=== PATIENT | female | born 1960 | race Caucasian/White ===

== ENCOUNTER → 2016-07-04 | Outpatient (CLI) | payer MEDICARE ==
[2016-07-04 10:14] LABS: Anion Gap 13 mmol/L; Blood Urea Nitrogen 22 mg/dL (7-17); Carbon Dioxide 28 mmol/L (22-30); Chloride 101 mmol/L (98-107); Glucose 153 mg/dL (74-99); Potassium 4.4 mmol/L (3.5-5.1); Sodium 142 mmol/L (137-145)
[2016-07-04 10:15] LABS: ALT 45 U/L (9-52); AST 33 U/L (14-36); Alkaline Phosphatase 137 U/L (38-126); Calcium 9.2 mg/dL (8.4-10.2); Cholesterol 188 mg/dL (<200); HDL Cholesterol 45 mg/dL (40-60); Non-African American GFR(MDRD) 58 (>60 ml/min/1.73 sqM); Total Bilirubin 0.5 mg/dL (0.2-1.3); Total Protein 7.2 g/dL (6.3-8.2); Triglycerides 208 mg/dL (<150)
== END | disposition home or self-care (01) ==
LOC: LABWHC1 09:20
PROVIDERS: ATTEND Internal Medicine Endocrinology, Diabetes & Metabolism
DX: E11.65 Type 2 diabetes mellitus with hyperglycemia (principal)
CPT/HCPCS: 36415; 80053; 80061; 82043

== ENCOUNTER → 2017-06-10 | Outpatient (CLI) | payer MEDICARE ==
--- NOTE | 2017-06-12 06:52 | MM ---
Reason for exam: screening (asymptomatic). Last mammogram was performed 1 year and 2 months ago. History: Patient is postmenopausal. Excisional biopsy of the right breast. Physical Findings: A clinical breast exam by your physician is recommended on an annual basis and results should be correlated with mammographic findings. MG Screening Mammo w CAD Bilateral CC and MLO view(s) were taken. XCCL view(s) were taken of the right breast. Prior study comparison: April 20, 2016, bilateral MG screening mammo w CAD. May 31, 2014, bilateral MG screening mammo w CAD. The breast tissue is almost entirely fat. No significant changes when compared with prior studies. ASSESSMENT: Benign, BI-RAD 2 RECOMMENDATION: Routine screening mammogram of both breasts in 1 year.
== END | disposition home or self-care (01) ==
LOC: RADMAMWWP 12:47
PROVIDERS: ATTEND Family Medicine
DX: Z12.31 Encounter for screening mammogram for malignant neoplasm of breast (principal)
CPT/HCPCS: 77067

== ENCOUNTER → 2017-09-04 | Outpatient (CLI) | payer MEDICARE ==
--- NOTE | 2017-09-04 14:29 | US ---
EXAMINATION TYPE: US venous doppler duplex LE RT DATE OF EXAM: 09/04/2017 10:49 AM COMPARISON: NONE CLINICAL HISTORY: M79.604 pain in right leg, R22.41 swelling. SIDE PERFORMED: Right TECHNIQUE: The lower extremity deep venous system is examined utilizing real time linear array sonog makayla with graded compression, doppler sonography and color-flow sonography. VESSELS IMAGED: External Iliac Vein (EIV) Common Femoral Vein Deep Femoral Vein Greater Saphenous Vein * Femoral Vein Popliteal Vein Small Saphenous Vein * Proximal Calf Veins (* superficial vessels) Right Leg: Negative for DVT IMPRESSION: 1. Right lower extremity negative for deep venous thrombosis by ultrasound.
== END | disposition home or self-care (01) ==
LOC: RADUSWWP 10:14
PROVIDERS: ATTEND Family Medicine
DX: M79.604 Pain in right leg (principal); R22.41 Localized swelling, mass and lump, right lower limb

== ENCOUNTER → 2017-09-04 | Outpatient (CLI) | payer MEDICARE ==
--- NOTE | 2017-09-04 11:40 | XR ---
EXAMINATION TYPE: XR tibia fibula RT DATE OF EXAM: 09/04/2017 COMPARISON: NONE HISTORY: Pain TECHNIQUE: Two views are submitted. FINDINGS: The osseous structures are intact. The joint spaces are preserved. IMPRESSION: 1. No acute osseous abnormality.
--- NOTE | 2017-09-04 11:41 | XR ---
EXAMINATION TYPE: XR ankle complete RT DATE OF EXAM: 09/04/2017 COMPARISON: NONE HISTORY: Pain and swelling FINDINGS: Three views of the ankle demonstrate the ankle mortise to be intact and symmetric. The joint spaces are preserved. The osseous structures are intact. IMPRESSION: 1. No definite acute fracture or dislocation, if symptoms persist follow-up study in 7 to 10 days wou ld be suggested.
== END | disposition home or self-care (01) ==
LOC: RADCTMAIN 11:14
PROVIDERS: ATTEND Family Medicine
DX: M79.604 Pain in right leg (principal)

== ENCOUNTER → 2018-07-28 | Outpatient (CLI) | payer MEDICARE ==
--- NOTE | 2018-07-28 15:38 | MR ---
EXAMINATION TYPE: MR brain wo/w con DATE OF EXAM: 07/28/2018 COMPARISON: CT 11/19/2014 HISTORY: 58-year-old female Dizziness and giddiness, nausea and vomiting TECHNIQUE: Multiplanar, multisequence images of the brain and brainstem were acquired before and aft er administration of 7.5 mL IV Gadavist. Diffusion weighted imaging is performed. FINDINGS: No evidence for acute infarction, hemorrhage, mass, mass effect, midline shift, herniation, effacemen t of basal cisterns, or extra-axial fluid collection. The ventricles and sulci are age-appropriate. There appears to be moderate narrowing of the right carotid siphon. T2/FLAIR weighted sequences show severe confluent white white matter change in the periventricular de ep white matter regions of both cerebral hemispheres. Signal changes extend into the bilateral basal ganglia, right internal capsule, bilateral paramedian nicki as well. Midline structures demonstrate normal morphology. The craniocervical junction is normal. Post contrast images demonstrate no evidence of pathologic enhancement. Dural venous sinuses are pat ent. Trace mucosal thickening ethmoid air cells and right maxillary sinus. Globes appear intact. IMPRESSION: Severe confluent white matter changes in both cerebral hemispheres also involving the bilateral pepe edian nicki. Findings probably represent severe burden of chronic small vessel ischemic disease and co nfluent changes were also present back on the patient's [address] CT. Demyelinating disease, vasculitis, L yme's disease, and hypertension are some other differential considerations. Clinically correlate. No acute intracranial abnormality seen.
== END | disposition home or self-care (01) ==
LOC: RADMRIMAIN 08:30
PROVIDERS: ATTEND Family Medicine
DX: R90.82 White matter disease, unspecified (principal); R42 Dizziness and giddiness; A88.1 Epidemic vertigo; R11.2 Nausea with vomiting, unspecified; R26.81 Unsteadiness on feet; Z91.81 History of falling
CPT/HCPCS: 82565; 84520; 70553; 36415; A9585

== ENCOUNTER → 2019-05-15 | Outpatient (CLI) | payer MEDICARE ==
--- NOTE | 2019-05-15 10:10 | CT ---
EXAMINATION TYPE: CT foot RT wo con DATE OF EXAM: 05/15/2019 COMPARISON: None HISTORY: Pain post fall TECHNIQUE: Axial images at 3 mm thick sections through the right foot. Reconstructed images in the co brodie and sagittal plane are reviewed on the computer. DLP: 200 FINDINGS: Transverse fractures at the proximal metaphyseal second third and fourth metatarsals are ev ident. There appears to be some resorption around the fracture line at the fourth metatarsal. A tiny inferior medial proximal first metatarsal fracture is present. Series 5 image 31. Series 12 im age 19. This would have intra-articular extension. Metatarsal cuneiform alignment appears preserved. Hallux valgus deformity of the distal first digit i s noted. Hammertoes are evident. IMPRESSION: 1. Comminuted fractures of the second third and fourth metatarsals which are essentially nondisplace d. However, consider Lisfranc fracture. 2. Tiny inferior medial proximal first metatarsal fracture.
== END | disposition home or self-care (01) ==
LOC: RADCTMAIN 08:15
PROVIDERS: ATTEND Orthopaedic Surgery
DX: S92.311A Displaced fracture of first metatarsal bone, right foot, initial encounter for closed fracture (principal); S92.334A Nondisplaced fracture of third metatarsal bone, right foot, initial encounter for closed fracture; S92.344A Nondisplaced fracture of fourth metatarsal bone, right foot, initial encounter for closed fracture

== ENCOUNTER → 2019-07-08 | Outpatient (CLI) | payer MEDICARE ==
[2019-07-08 16:22] LABS: Albumin 4.2 g/dL (3.80-4.90); Albumin/Globulin Ratio 1.75 (1.60-3.17); Anion Gap 8.2 mmol/L (4.00-12.00); BUN/Creat Ratio 33.33 Ratio (12.00-20.00); Carbon Dioxide 31.8 mmol/L (21.6-31.8); Chol/HDL Ratio 3.24; Globulin 2.4 g/dL (1.6-3.3); LDL Cholesterol,Calculated 70.2 mg/dL (0.0-131.0); Potassium 5.1 mmol/L (3.5-5.5); Total Bilirubin 0.2 mg/dL (0.2-1.2); Total Protein 6.6 g/dL (6.2-8.2); VLDL Calculation 23.8 mg/dL (5.00-40.00)
[2019-07-08 17:48] LABS: Hemoglobin A1C 8.4 % (4.0-6.0)
[2019-07-08 21:34] LABS: Urine Creatinine 141.8 mg/dL
== END | disposition home or self-care (01) ==
LOC: LABWHC1 09:24
PROVIDERS: ATTEND Internal Medicine Endocrinology, Diabetes & Metabolism
DX: E11.65 Type 2 diabetes mellitus with hyperglycemia (principal)
CPT/HCPCS: 36415; 80053; 80061; 82043; 82570; 83036; 84443

== ENCOUNTER → 2021-09-15 | Outpatient (CLI) | payer MEDICARE ==
[2021-09-15 18:29] LABS: Basophils # (A) 0.05 X 10*3/uL (0.00-0.10); Basophils % (A) 0.3 %; Eosinophils % (A) 2.4 %; HCT 49.1 % (37.2-46.3); Immature Grans, Automated 0.4 %; Lymphocytes # (A) 2.64 X 10*3/uL (0.90-5.00); MCH 27.5 pg (27.0-32.0); MCHC 30.5 g/dL (32.0-37.0); MCV 89.9 fL (80.0-97.0); Mean Platelet Volume 8.9 fL (9.5-12.2); Monocytes # (A) 1.05 X 10*3/uL (0.20-1.00); Monocytes % (A) 6.4 %; NRBC Per 100 WBC 0 /100 WBCS (0.0-0.0); Neutrophils # (A) 12.28 X 10*3/uL (1.80-7.70); Neutrophils % (A) 74.5 %; Platelet Count 318 X 10*3/uL (140-440); RBC 5.46 X 10*6/uL (4.10-5.20); RDW 13.3 % (11.5-14.5); WBC 16.48 X 10*3/uL (4.50-10.00)
[2021-09-15 21:21] LABS: ALT 12 U/L (8-44); AST 18 U/L (13-35); African American GFR (CKD) 90.9 (60.0-200.0); Albumin 4.2 g/dL (3.8-4.9); Alkaline Phosphatase 100 U/L (41-126); BUN/Creat Ratio 27.63 Ratio (12.00-20.00); Blood Urea Nitrogen 22.1 mg/dL (9.0-27.0); Calcium 9.6 mg/dL (8.7-10.3); Carbon Dioxide 27.6 mmol/L (20.0-27.5); Chloride 101 mmol/L (96-109); Chol/HDL Ratio 3.22 Ratio; Globulin 2.8 g/dL (1.6-3.3); Glucose 114 mg/dL (70-110); LDL Cholesterol,Calculated 54.7 mg/dL (0.0-131.0); Non-African American GFR(CKD) 78.5 (60.0-200.0); Potassium 4.3 mmol/L (3.5-5.5); Sodium 141 mmol/L (135-145)
== END | disposition home or self-care (01) ==
LOC: LABWHC1 09:37
PROVIDERS: ATTEND Internal Medicine Endocrinology, Diabetes & Metabolism
DX: Z00.01 Encounter for general adult medical examination with abnormal findings (principal); E78.2 Mixed hyperlipidemia; J44.9 Chronic obstructive pulmonary disease, unspecified; E11.36 Type 2 diabetes mellitus with diabetic cataract; M85.80 Other specified disorders of bone density and structure, unspecified site; E11.65 Type 2 diabetes mellitus with hyperglycemia
CPT/HCPCS: 36415; 80053; 80061; 82043; 82306; 82570; 83036; 84443; 85025

== ENCOUNTER 2021-10-25 13:49 | Inpatient (IN) | payer MEDICARE ==
--- NOTE | 2021-10-25 14:27 | ED ---
General Adult HPI - General Chief complaint: Neuro Symptoms/Deficit Stated complaint: altered mental status Time Seen by Provider: 10/25/21 14:02 Source: patient, RN notes reviewed, old records reviewed Mode of arrival: ambulatory Limitations: no limitations - History of Present Illness Initial comments: 61-year-old female presenting with progressive more weakness and difficulty ambulating. She has been more confused. Her indicates that this has been a progression over the course of several weeks. He did note some right- sided facial droop which she believes began yesterday at noon. She has presenting for evaluation at approximately 2 PM today. This is 26 hours after the onset. Patient does have previous stroke history. She has diabetes. His been no pain complaints reported. No fever reported. No vomiting or diarrhea. - Related Data Home Medications Medication Instructions Recorded Confirmed Venlafaxine HCl [Venlafaxine HCl 150 mg PO HS 11/19/14 10/25/21 ER] Aspirin EC [Ecotrin Low Dose] 81 mg PO DAILY 10/25/21 10/25/21 HYDROcodone/APAP 5-325MG [[place] 1 tab PO DAILY PRN 10/25/21 10/25/21 5-325] Insulin Glargine,Hum.rec.anlog 0 - 30 unit SQ HS 10/25/21 10/25/21 [Lantus Solostar Pen] Multivitamins, Thera [Multivitamin 1 tab PO DAILY 10/25/21 10/25/21 (formulary)] Ondansetron [Zofran] 4 mg PO Q8HR PRN 10/25/21 10/25/21 Rosuvastatin Calcium [Crestor] 40 mg PO HS 10/25/21 10/25/21 glipiZIDE [Glucotrol] 10 mg PO AC-BID 10/25/21 10/25/21 metFORMIN HCL ER [Glucophage XR] 500 mg PO BID 10/25/21 10/25/21 Allergies Allergy/AdvReac Type Severity Reaction Status Date / Time Iodinated Contrast Media Allergy Unknown Verified 10/25/21 16:03 [Iodinated Contrast Media - IV Dye] Review of Systems ROS Statement: Those systems with pertinent positive or pertinent negative responses have been documented in the HPI. ROS Other: All systems not noted in ROS Statement are negative. Past Medical History Past Medical History: CVA/TIA, Diabetes Mellitus, Hyperlipidemia, Thyroid Disorder Additional Past Medical History / Comment(s): Vertigo, obstructive sleep apnea with CPAP, diabetic retinopathy, diabetic neuropathy. History of Any Multi-Drug Resistant Organisms: MRSA Date of last positivie culture/infection: 01/27/2015 MDRO Source:: Left Elbow Past Surgical History: Cholecystectomy, Hernia Repair, Hysterectomy, Orthopedic Surgery Additional Past Surgical History / Comment(s): Right shoulder surgery, hiatal hernia repair Past Anesthesia/Blood Transfusion Reactions: No Reported Reaction Past Psychological History: No Psychological Hx Reported Smoking Status: Former smoker Past Alcohol Use History: None Reported Past Drug Use History: None Reported - Past Family History Mother Family Medical History: Congestive Heart Failure (CHF), Diabetes Mellitus General Exam Limitations: no limitations General appearance: alert, in no apparent distress Head exam: Present: atraumatic, normocephalic Eye exam: Present: normal appearance. Absent: scleral icterus, conjunctival injection, periorbital swelling ENT exam: Present: mucous membranes dry Respiratory exam: Present: normal lung sounds bilaterally, respiratory distress Cardiovascular Exam: Present: regular rate, normal rhythm GI/Abdominal exam: Present: soft. Absent: distended, tenderness, guarding Extremities exam: Present: normal inspection, normal capillary refill. Absent: pedal edema, calf tenderness Neurological exam: Present: alert, oriented X3, CN II-XII intact, other (Generalized weakness, no focal findings.). Absent: motor sensory deficit Psychiatric exam: Present: flat affect Skin exam: Present: warm, dry, intact. Absent: cyanosis, diaphoretic Course Vital Signs 10/25/21 13:53 Temperature 98.5 F Pulse Rate 101 H Respiratory 20 Rate Blood Pressure 125/79 O2 Sat by Pulse 94 L Oximetry EKG Findings - EKG Comments: EKG Findings:: EKG: Sinus rhythm, low voltage, rate of 97, NM interval 158, QRS duration 78, QTC 385, no ST segment elevation Medical Decision Making - Medical Decision Making 61-year-old female with progressive weakness difficulty ambulating, altered mental status. Patient's did notice a facial droop which began greater than 24 hours prior to arrival. I do not see any facial droop on exam today. This may have been a TIA. CT brain is negative for intracranial hemorrhage or mass effect. No acute findings, there is chronic ischemic change. Patient has a mild leukocytosis. Stable hemoglobin, normal electrolytes, lactic acid 2.3. Urinalysis is pending. Chest x-rays negative for focal pneumonia. Though there is a low suspicion for acute stroke she is given aspirin in the emergency department as well as IV fluids. She will be admitted to Dr. Yates who is aware with neurology on consultation. - Lab Data Result diagrams: 10/25/21 14:24 10/25/21 14:24 Lab Results 10/25/21 10/25/21 10/25/21 Range/Units 14:24 14:24 14:24 WBC 12.1 H (3.8-10.6) k/uL RBC 5.52 H (3.80-5.40) m/uL Hgb 15.5 (11.4-16.0) gm/dL Hct 47.8 H (34.0-46.0) % MCV 86.7 (80.0-100.0) fL MCH 28.2 (25.0-35.0) pg MCHC 32.5 (31.0-37.0) g/dL RDW 13.7 (11.5-15.5) % Plt Count 317 (150-450) k/uL MPV 6.7 Neutrophils % 68 % Lymphocytes % 23 % Monocytes % 5 % Eosinophils % 1 % Basophils % 0 % Neutrophils # 8.2 H (1.3-7.7) k/uL Lymphocytes # 2.8 (1.0-4.8) k/uL Monocytes # 0.7 (0-1.0) k/uL Eosinophils # 0.1 (0-0.7) k/uL Basophils # 0.0 (0-0.2) k/uL PT 11.0 (9.0-12.0) sec INR 1.0 (<1.2) APTT 28.9 (22.0-30.0) sec Sodium 137 (137-145) mmol/L Potassium 5.2 H (3.5-5.1) mmol/L Chloride 99 (98-107) mmol/L Carbon Dioxide 30 (22-30) mmol/L Anion Gap 8 mmol/L BUN 24 H (7-17) mg/dL Creatinine 0.67 (0.52-1.04) mg/dL Est GFR (CKD-EPI)AfAm >90 (>60 ml/min/1.73 sqM) Est GFR (CKD-EPI)NonAf >90 (>60 ml/min/1.73 sqM) Glucose 120 H (74-99) mg/dL Plasma Lactic Acid Leland (0.7-2.0) mmol/L Calcium 9.3 (8.4-10.2) mg/dL Magnesium 1.7 (1.6-2.3) mg/dL Total Bilirubin 0.8 (0.2-1.3) mg/dL AST 36 (14-36) U/L ALT 15 (4-34) U/L Alkaline Phosphatase 89 (38-126) U/L Troponin I (0.000-0.034) ng/mL Total Protein 7.7 (6.3-8.2) g/dL Albumin 4.3 (3.5-5.0) g/dL 10/25/21 10/25/21 Range/Units 14:24 14:24 WBC (3.8-10.6) k/uL RBC (3.80-5.40) m/uL Hgb (11.4-16.0) gm/dL Hct (34.0-46.0) % MCV (80.0-100.0) fL MCH (25.0-35.0) pg MCHC (31.0-37.0) g/dL RDW (11.5-15.5) % Plt Count (150-450) k/uL MPV Neutrophils % % Lymphocytes % % Monocytes % % Eosinophils % % Basophils % % Neutrophils # (1.3-7.7) k/uL Lymphocytes # (1.0-4.8) k/uL Monocytes # (0-1.0) k/uL Eosinophils # (0-0.7) k/uL Basophils # (0-0.2) k/uL PT (9.0-12.0) sec INR (<1.2) APTT (22.0-30.0) sec Sodium (137-145) mmol/L Potassium (3.5-5.1) mmol/L Chloride (98-107) mmol/L Carbon Dioxide (22-30) mmol/L Anion Gap mmol/L BUN (7-17) mg/dL Creatinine (0.52-1.04) mg/dL Est GFR (CKD-EPI)AfAm (>60 ml/min/1.73 sqM) Est GFR (CKD-EPI)NonAf (>60 ml/min/1.73 sqM) Glucose (74-99) mg/dL Plasma Lactic Acid Leland 2.3 H* (0.7-2.0) mmol/L Calcium (8.4-10.2) mg/dL Magnesium (1.6-2.3) mg/dL Total Bilirubin (0.2-1.3) mg/dL AST (14-36) U/L ALT (4-34) U/L Alkaline Phosphatase (38-126) U/L Troponin I <0.012 (0.000-0.034) ng/mL Total Protein (6.3-8.2) g/dL Albumin (3.5-5.0) g/dL Disposition Clinical Impression: Transient cerebral ischemia, AMS (altered mental status) Disposition: ADMITTED IP TO THIS HOSP Condition: Stable Is patient prescribed a controlled substance at d/c from ED?: No Referrals: Yandy Cedillo III, MD [Primary Care Provider] - 1-2 days Time of Disposition: 16:23
[2021-10-25 14:38] LABS: Basophils % (A) 0 %; Eosinophils # (A) 0.1 k/uL (0-0.7); Eosinophils % (A) 1 %; HCT 47.8 % (34.0-46.0); HGB 15.5 gm/dL (11.4-16.0); Lymphocytes # (A) 2.8 k/uL (1.0-4.8); Lymphocytes % (A) 23 %; MCH 28.2 pg (25.0-35.0); MCHC 32.5 g/dL (31.0-37.0); MCV 86.7 fL (80.0-100.0); Mean Platelet Volume 6.7; Monocytes # (A) 0.7 k/uL (0-1.0); Monocytes % (A) 5 %; Neutrophils # (A) 8.2 k/uL (1.3-7.7); Neutrophils % (A) 68 %; Platelet Count 317 k/uL (150-450); RBC 5.52 m/uL (3.80-5.40); RDW 13.7 % (11.5-15.5); WBC 12.1 k/uL (3.8-10.6)
[2021-10-25 14:47] LABS: ALT 15 U/L (4-34); AST 36 U/L (14-36); African American GFR (CKD) >90 (>60 ml/min/1.73 sqM); Albumin 4.3 g/dL (3.5-5.0); Alkaline Phosphatase 89 U/L (38-126); Anion Gap 8 mmol/L; Blood Urea Nitrogen 24 mg/dL (7-17); Calcium 9.3 mg/dL (8.4-10.2); Carbon Dioxide 30 mmol/L (22-30); Chloride 99 mmol/L (98-107); Glucose 120 mg/dL (74-99); Magnesium 1.7 mg/dL (1.6-2.3); Non-African American GFR(CKD) >90 (>60 ml/min/1.73 sqM); Sodium 137 mmol/L (137-145); Total Bilirubin 0.8 mg/dL (0.2-1.3); Total Protein 7.7 g/dL (6.3-8.2)
[2021-10-25 14:48] LABS: Partial Thromboplastin Time 28.9 sec (22.0-30.0)
--- NOTE | 2021-10-25 14:52 | XR ---
EXAMINATION TYPE: XR chest 2V DATE OF EXAM: 10/25/2021 COMPARISON: Chest x-ray 11/19/2014 HISTORY: Weakness TECHNIQUE: Frontal and lateral views of the chest are obtained. FINDINGS: There is no focal air space opacity, pleural effusion, or pneumothorax seen. The cardiac silhouette size is within normal limits. There are overlying leads. Patient is rotated. Surgical clip s are present in the upper abdomen. The osseous structures are intact. IMPRESSION: No acute cardiopulmonary process.
[2021-10-25 14:59] LABS: Potassium 5.2 mmol/L (3.5-5.1)
--- NOTE | 2021-10-25 15:08 | CT ---
EXAMINATION TYPE: CT brain wo con DATE OF EXAM: 10/25/2021 COMPARISON: CT dated 11/19/2014 HISTORY: ams CT DLP: 1068.4 mGycm Automated exposure control for dose reduction was used. TECHNIQUE: CT scan of the brain is performed without IV contrast administration. FINDINGS: Brain volume loss changes, more than expected for the patient's age. Extensive bilateral cerebral whi te matter hypodensities, likely representing advanced chronic microvascular ischemic changes. Other w jeane matter abnormality cannot be excluded. Suspected right basal ganglia and left cerebellar chronic infarcts. Scattered arterial atherosclerotic calcifications. No acute intracranial hemorrhage. No gross acute cortical infarct. No midline shift or herniation. Un remarkable basal cisterns, sella and CP angles. No gross space-occupying lesion. Unremarkable orbits. Mucosal thickening of the ethmoid air cells with chronic inflammatory changes of the right maxillary sinus. Clear mastoid air cells. No aggressive bone lesion. IMPRESSION: Brain volume loss changes, chronic ischemic changes and suspected chronic infarcts as described above , more than expected for the patient's age, please correlate clinically. Associated white matter abno rmality cannot be excluded. No acute intracranial hemorrhage or gross acute cortical infarct. A acute or hyperacute infarct canno t be excluded by this CT scan. Further MRI assessment can be considered if clinically required.
[2021-10-25] MEDS ORDERED: ACETAMINOPHEN TAB 325 MG TAB PO PRN (16:21)
[2021-10-25] MEDS ORDERED: ASPIRIN 325 MG TAB PO STA (16:21)
[2021-10-25] MEDS ORDERED: NALOXONE 0.4 MG/ML 1 ML VIAL IV PRN (16:21)
[2021-10-25] MEDS: SODIUM CHLORIDE 0.9% 1,000 ML IV SCH ×2 (17:14→17:22)
[2021-10-25] MEDS ORDERED: HYDROcodone/APAP 5-325MG 1 EACH TAB PO PRN (17:32)
[2021-10-25] MEDS ORDERED: ONDANSETRON 4 MG TAB PO PRN (17:32)
[2021-10-25] MEDS ORDERED: levETIRAcetam IV 1,500 MG in SALINE 1 100ML.BAG IVPB STA (17:55)
--- NOTE | 2021-10-25 17:56 | P.CNNES ---
History of Present Illness Consult date: 10/25/21 Requesting physician: Wiliam Hernandez Reason for Consult: altered mental status History of Present Illness: This is a 61-year-old woman with medical history of TIA about 10 years ago, diabetes mellitus, hyperlipidemia, obstructive sleep apnea on CPAP, diabetic retinopathy and diabetic neuropathy who presented emergency department on 10/25/2021 for altered mental status that. The history is obtained from the the patient's daughter was at bedside and some is obtained from the ED at. Per the daughter she stated that the patient the resides with her and the she's been very lethargic last night staring off noncommunicating, very lethargic, and she will be stretching her hands out nonpurposively. Patient does not have any fever or cough according to the daughter. The patient does not have any history of seizures. According to the ED physician the notified the the ED that the patient has been confused for the last several weeks and he did noted some right facial droop which he felt started yesterday at noon per the daughter she does not see any facial droop that she appreciates. Patient is on home dose of aspirin 81, Crestor 40 mg daily at bedtime. According to the daughter the patient TIA about 10 years ago was the she had the visual disturbance. Some of the workup in our facility consisted of: Initial vital signs his blood pressure of 125/79, heart rate of 101, temperature of 98.5 Fahrenheit oral, respiratory of 20 and pulse ox of 94 L at room air. White blood cells 12.1 slightly neutrophilic. The Plasma-Lyte aspirin is 2.3. Review of Systems Review of system is limited by the per positive and negative as per HPI. Past Medical History Past Medical History: CVA/TIA, Diabetes Mellitus, Hyperlipidemia, Thyroid Disorder Additional Past Medical History / Comment(s): Vertigo, obstructive sleep apnea with CPAP, diabetic retinopathy, diabetic neuropathy. History of Any Multi-Drug Resistant Organisms: MRSA Date of last positivie culture/infection: 01/27/2015 MDRO Source:: Left Elbow Past Surgical History: Cholecystectomy, Hernia Repair, Hysterectomy, Orthopedic Surgery Additional Past Surgical History / Comment(s): Right shoulder surgery, hiatal hernia repair Past Anesthesia/Blood Transfusion Reactions: No Reported Reaction Past Psychological History: No Psychological Hx Reported Smoking Status: Former smoker Past Alcohol Use History: None Reported Past Drug Use History: None Reported - Past Family History Mother Family Medical History: Congestive Heart Failure (CHF), Diabetes Mellitus Medications and Allergies Home Medications Medication Instructions Recorded Confirmed Type Venlafaxine HCl [Venlafaxine HCl 150 mg PO HS 11/19/14 10/25/21 History ER] Aspirin EC [Ecotrin Low Dose] 81 mg PO DAILY 10/25/21 10/25/21 History HYDROcodone/APAP 5-325MG [[place] 1 tab PO DAILY PRN 10/25/21 10/25/21 History 5-325] Insulin Glargine,Hum.rec.anlog 0 - 30 unit SQ HS 10/25/21 10/25/21 History [Lantus Solostar Pen] Multivitamins, Thera [Multivitamin 1 tab PO DAILY 10/25/21 10/25/21 History (formulary)] Ondansetron [Zofran] 4 mg PO Q8HR PRN 10/25/21 10/25/21 History Rosuvastatin Calcium [Crestor] 40 mg PO HS 10/25/21 10/25/21 History glipiZIDE [Glucotrol] 10 mg PO AC-BID 10/25/21 10/25/21 History metFORMIN HCL ER [Glucophage XR] 500 mg PO BID 10/25/21 10/25/21 History Allergies Allergy/AdvReac Type Severity Reaction Status Date / Time Iodinated Contrast Media Allergy Unknown Verified 10/25/21 16:03 [Iodinated Contrast Media - IV Dye] Physical Examination - Vital Signs Vital Signs: Vital Signs Temp Pulse Resp BP Pulse Ox 10/25/21 17:00 89 18 118/70 97 10/25/21 13:53 98.5 F 101 H 20 125/79 94 L Intake and Output 10/25/21 10/25/21 10/25/21 06:59 14:59 22:59 Other: Weight 81.647 kg GENERAL: The patient is lying in bed and is not in acute distress. CHEST: The heart rate is regular rate rhythm. No murmurs to auscultation. LUNG: Clear to auscultation bilaterally no wheezing noted throughout. Not labored breathing. ABDOMEN/GI: Bowel sounds present in all 4 quadrants. No tenderness to palpation throughout. NEUROLOGICAL: Limited because of her condition/cooperation. Higher mental function: The patient is awake, oriented to self. She is staring off and slow in responding. She correctly noded she is in the hospital. Patient is following few simple commands. . Cranial nerves: The pupils are round, equal and reactive to light. No facial droop. No dysarthria. Sticking tongue out and move sided to side without difficulty. Motor: The strength is lifting all extremities above gravity without difficulty. Cerebellum: Unable to assess. Sensation: Unable to assess. Reflexes (right/left):2+ throughout. Plantars are mute bilaterally. Results - Laboratory Findings CBC and BMP: 10/25/21 14:24 10/25/21 14:24 Abnormal Lab Findings: Abnormal Labs 10/25/21 10/25/21 10/25/21 14:24 14:24 14:24 WBC 12.1 H RBC 5.52 H Hct 47.8 H Neutrophils # 8.2 H Potassium 5.2 H BUN 24 H Glucose 120 H Plasma Lactic Acid Leland 2.3 H* Assessment and Plan Assessment: Encephalopathy of unknown etiology (has been confused for several week according to and possible transient right facial droop but per daughter has been confused since yesterday). I suspect possible seizure (since patient has been staring off, and per daughter having abnormal hand movement). Rule out stroke (but feel unlikely). TIA about 10 years ago diabetes mellitus hyperlipidemia obstructive sleep apnea on CPAP diabetic retinopathy diabetic neuropathy Plan: Ordered EEG (will be done tomorrow). I will load the patient with Keppra 1500mg once. Started on Keppra 500mg bid. Ordered MRI Brain w/ and w/o. 2-D echo, carotid duplex, is ordered by the primary team is pending Patient was given aspirin 325mg once by ED team.She was started on Lipitor 80mg qhs. It seems ulikely stroke but will wait for MRI. PT, OT and CORRECTIONAL FACILITY PSYCHIATRIST are consulted We'll defer the rest of the medical management to primary team The plan is discussed with the patient's daughter and her nurse. Thank you for the consultation. Israel Mcguire M.D. Neuro-Hospitalist Time with Patient: Greater than 30
[2021-10-25 18:00] LABS: Amorphous Sediment,Urine Rare /hpf; Appearance,Urine Cloudy (Clear); Bacteria,Urine Occasional /hpf; Bilirubin,Urine Negative (Negative); Blood,Urine Negative (Negative); Color,Urine Yellow; Glucose,Urine (UA) Negative (Negative); Ketones,Urine 2+ (Negative); Leukocyte Esterase,Urine Negative (Negative); Mucus,Urine Occasional /hpf; Nitrite,Urine Positive (Negative); Protein,Urine 1+ (Negative); RBC,Urine 1 /hpf (0-5); Specific Gravity,Urine 1.024 (1.001-1.035); Squamous Epithelial Cell,Urine 1 /hpf (0-4); WBC,Urine 1 /hpf (0-5)
--- NOTE | 2021-10-25 18:41 | HP ---
HISTORY AND PHYSICAL DATE OF SERVICE: 10/25/2021 CHIEF COMPLAINT: Change in mental status. HISTORY OF PRESENT ILLNESS: This 61-year-old woman with a past medical history of diabetes mellitus and hyperlipidemia, being followed by Dr. Cedillo in the outpatient setting, was noted to have some change in mental status. This was progressive over several weeks and the patient had some noted right-sided facial droop. The patient was taken to [facility] and admitted for further evaluation and treatment. Evaluation in the ER showed some elevated lactic acid. Otherwise, CT of the brain which was personally reviewed by me showed some brain volume loss changes and chronic ischemic changes and possibly chronic infarcts as well. No acute changes are noted. The patient is unable to provide a history. Most of the history is taken from my discussion with staff, review of the chart and discussion with the ER physician. PAST MEDICAL HISTORY: History of CVA, TIA, diabetes mellitus, hyperlipidemia. HOME MEDICATIONS: Reviewed. They include Zofran. Doses and the rest of the medications are reviewed. ALLERGIES: IODINATED CONTRAST DYES. FAMILY HISTORY: History of CHF. SOCIAL HISTORY: Previous history of smoking. REVIEW OF SYSTEMS: Review of systems could not be taken. PHYSICAL EXAMINATION: Pulse is 101, blood pressure 125/70, respiration 20. HEENT: Conjunctivae normal. NECK: No jugular venous distention. CARDIOVASCULAR: S1, S2 muffled. RESPIRATION: Breath sounds diminished at the bases. A few scattered rhonchi. ABDOMEN: Soft, nontender. LEGS: No edema. No swelling. NERVOUS SYSTEM: Diffusely weak. Some contractures also present. Diffuse tremors. SKIN: No ulcer, rash, bleeding. JOINTS: No active deforming arthropathy. LYMPHATICS: nrg LABS: Reviewed. WBC ntd potassium ntd. Other labs are reviewed. ASSESSMENT: 1. Weakness and change in mental status; possible acute transient ischemic attack. 2. History of cerebrovascular accident. 3. Gait dysfunction. 4. Diabetes mellitus, type 2. 5. Hyperlipidemia. 6. History of MRSA. RECOMMENDATIONS AND DISCUSSION: I recommend to continue current medications, continue symptomatic treatment. Neurology consultation. Full neurovascular workup. PT/OT evaluation. I would also recommend baseline a UA. Prognosis guarded. Further recommendations to follow. I would also recommend COVID testing. The patient has some cough at this time. Prognosis is guarded. Further recommendations to follow. A copy of this dictation is being forwarded to Dr. Mamadou, who is the primary physician. MMPATRICA / ABHIJITN: [id number] / RADHIKA
[2021-10-25 22:07] LABS: Glucose,Whole Blood 84 mg/dL (75-99)
[2021-10-25] MEDS: INSULIN ASPART (NovoLOG) 100 UNIT/ML VIAL SQ SCH (22:17)
[2021-10-25] MEDS: ATORVASTATIN 80 MG TAB PO SCH (22:44)
[2021-10-25] MEDS: VENLAFAXINE HCL ER 150 MG CAP PO SCH (22:45)
[2021-10-25] MEDS: HEPARIN SODIUM,PORCINE/PF 5,000 UNIT/0.5 ML SYRINGE SQ SCH (22:48)
[2021-10-26 03:19] LABS: Glucose,Whole Blood 82 mg/dL (75-99)
[2021-10-26] MEDS: levETIRAcetam IV 500 MG in SODIUM CHLORIDE 0.9% 100 ML IVPB SCH ×2 (05:36→18:25)
[2021-10-26 06:10] LABS: Glucose,Whole Blood 69 mg/dL (75-99)
[2021-10-26] MEDS ORDERED: DEXTROSE 50% SYRINGE 50 ML IVP ONE (06:15)
[2021-10-26] MEDS: glipiZIDE 10 MG TAB PO SCH ×2 (06:15→16:41)
[2021-10-26] MEDS: INSULIN ASPART (NovoLOG) 100 UNIT/ML VIAL SQ SCH ×3 (06:15→21:16)
[2021-10-26 06:29] LABS: Glucose,Whole Blood 138 mg/dL (75-99)
[2021-10-26] MEDS: MULTIVITAMINS, THERA 1 EACH TAB PO SCH (09:30)
[2021-10-26] MEDS: HEPARIN SODIUM,PORCINE/PF 5,000 UNIT/0.5 ML SYRINGE SQ SCH ×2 (09:40→21:16)
[2021-10-26 10:08] LABS: Basophils # (A) 0.1 k/uL (0-0.2); Basophils % (A) 0 %; Eosinophils # (A) 0.1 k/uL (0-0.7); Eosinophils % (A) 1 %; HCT 45.9 % (34.0-46.0); Lymphocytes # (A) 2.6 k/uL (1.0-4.8); Lymphocytes % (A) 15 %; MCH 26.8 pg (25.0-35.0); MCHC 30.6 g/dL (31.0-37.0); MCV 87.6 fL (80.0-100.0); Mean Platelet Volume 7.2; Monocytes # (A) 0.9 k/uL (0-1.0); Monocytes % (A) 6 %; Neutrophils # (A) 12.9 k/uL (1.3-7.7); Neutrophils % (A) 77 %; Platelet Count 257 k/uL (150-450); RBC 5.24 m/uL (3.80-5.40); RDW 13.3 % (11.5-15.5); WBC 16.8 k/uL (3.8-10.6)
[2021-10-26 14:43] LABS: African American GFR (CKD) >90 (>60 ml/min/1.73 sqM); Anion Gap 5 mmol/L; Blood Urea Nitrogen 23 mg/dL (7-17); Calcium 8.7 mg/dL (8.4-10.2); Carbon Dioxide 30 mmol/L (22-30); Chloride 103 mmol/L (98-107); Glucose 99 mg/dL (74-99); Non-African American GFR(CKD) >90 (>60 ml/min/1.73 sqM); Sodium 138 mmol/L (137-145)
--- NOTE | 2021-10-26 14:44 | P.PN ---
Subjective Progress Note Date: 10/26/21 The patient is seen at bedside and is accompanied by her daughter who feels she is about the same. Objective - Vital Signs Vital signs: Vital Signs Temp 97.8 F 10/26/21 09:35 Pulse 93 10/26/21 09:35 Resp 16 10/26/21 09:35 BP 104/67 10/26/21 09:35 Pulse Ox 92 L 10/26/21 09:35 FiO2 Intake & Output 10/25/21 10/26/21 10/26/21 18:59 06:59 18:59 Intake Total 10 Balance 10 Weight 81.647 kg 81.647 kg Intake: IV 10 Invasive Line 1 10 Other: Voiding Method Diaper Diaper # Voids 2 - Exam GENERAL: The patient is lying in bed and is not in acute distress. NEUROLOGICAL: Limited because of her condition/cooperation. Higher mental function: The patient is drowsy but is awakeable to voice, oriented to self. She states she is in the hospital. She is very slow in responding. She correctly stated the name of her daughter who is at bedisde. She is following simple commands. Language is limited. No neglect. . Cranial nerves: The pupils are round, equal and reactive to light. No facial droop. Moderate dysarthria. Sticking tongue out and move sided to side without difficulty. Motor: The strength is lifting all extremities above gravity without difficulty. Cerebellum: Unable to assess. Sensation: Unable to assess. Reflexes (right/left):2+ throughout. Plantars are mute bilaterally. - Labs CBC & Chem 7: 10/26/21 09:23 10/25/21 14:24 Labs: Abnormal Lab Results - Last 24 Hours (Table) 10/25/21 10/25/21 10/25/21 Range/Units 14:24 14:24 14:24 WBC 12.1 H (3.8-10.6) k/uL RBC 5.52 H (3.80-5.40) m/uL Hct 47.8 H (34.0-46.0) % MCHC (31.0-37.0) g/dL Neutrophils # 8.2 H (1.3-7.7) k/uL Potassium 5.2 H (3.5-5.1) mmol/L BUN 24 H (7-17) mg/dL Glucose 120 H (74-99) mg/dL POC Glucose (mg/dL) (75-99) mg/dL Plasma Lactic Acid Leland (0.7-2.0) mmol/L Urine Appearance Cloudy H (Clear) Urine Protein 1+ H (Negative) Urine Ketones 2+ H (Negative) Urine Nitrite Positive H (Negative) Amorphous Sediment Rare H (None) /hpf Urine Bacteria Occasional H (None) /hpf Urine Mucus Occasional H (None) /hpf 10/25/21 10/26/21 10/26/21 Range/Units 14:24 06:09 06:27 WBC (3.8-10.6) k/uL RBC (3.80-5.40) m/uL Hct (34.0-46.0) % MCHC (31.0-37.0) g/dL Neutrophils # (1.3-7.7) k/uL Potassium (3.5-5.1) mmol/L BUN (7-17) mg/dL Glucose (74-99) mg/dL POC Glucose (mg/dL) 69 L 138 H (75-99) mg/dL Plasma Lactic Acid Leland 2.3 H* (0.7-2.0) mmol/L Urine Appearance (Clear) Urine Protein (Negative) Urine Ketones (Negative) Urine Nitrite (Negative) Amorphous Sediment (None) /hpf Urine Bacteria (None) /hpf Urine Mucus (None) /hpf 10/26/21 Range/Units 09:23 WBC 16.8 H (3.8-10.6) k/uL RBC (3.80-5.40) m/uL Hct (34.0-46.0) % MCHC 30.6 L (31.0-37.0) g/dL Neutrophils # 12.9 H (1.3-7.7) k/uL Potassium (3.5-5.1) mmol/L BUN (7-17) mg/dL Glucose (74-99) mg/dL POC Glucose (mg/dL) (75-99) mg/dL Plasma Lactic Acid Leland (0.7-2.0) mmol/L Urine Appearance (Clear) Urine Protein (Negative) Urine Ketones (Negative) Urine Nitrite (Negative) Amorphous Sediment (None) /hpf Urine Bacteria (None) /hpf Urine Mucus (None) /hpf Assessment and Plan Assessment: Encephalopathy of unknown etiology (has been confused for several week according to and possible transient right facial droop but per daughter has been confused since yesterday). I suspect possible seizure (since patient has been staring off, and per daughter having abnormal hand movement). Rule out stroke (but feel unlikely). TIA about 10 years ago diabetes mellitus hyperlipidemia obstructive sleep apnea on CPAP diabetic retinopathy diabetic neuropathy Plan: Pending EEG and MRI Brain. Continue Keppra 500mg bid (started during this hospital visit).. 2-D echo, carotid duplex, is ordered by the primary team is pending Patient was given aspirin 325mg once by ED team.She was started on Lipitor 80mg qhs. It seems unlikely stroke but will wait for MRI. PT, OT and RACE STARTER are consulted We'll defer the rest of the medical management to primary team The plan is discussed with the patient's daughter. Israel Mcguire M.D. Neuro-Hospitalist Time with Patient: Less than 30
[2021-10-26 14:51] LABS: Glucose,Whole Blood 104 mg/dL (75-99)
[2021-10-26 14:57] VITALS: BMI 32.9
--- NOTE | 2021-10-26 15:59 | EEG ---
ELECTROENCEPHALOGRAM REPORT DATE OF SERVICE: 10/26/2021. CLINICAL HISTORY: This is a 61-year-old woman with confusion and staring off episode. The video EEG is obtained to evaluate for seizure epileptiform activity. RELEVANT MEDICATION: Keppra. EEG TYPE: A routine 21 channel EEG is performed with video using the 10/20 electrode placement system. DESCRIPTION: Wakefulness is only obtained. During awake state, the background consists of 6.5 to 7.5 hertz activity. There is no physiological stage 2 sleep architecture. There is no focal slowing. Interictal and ictal is none. ACTIVATION PROCEDURE: Photic stimulation and hyperventilation is not performed. CLINICAL INTERPRETATION: This is an abnormal routine EEG. The background slowing is suggestive of mild encephalopathy of unknown etiology. Otherwise, there is no focal slowing, epileptiform discharge or seizure on the EEG. Clinical correlation is recommended. JEANETTE / WILLIAM: [id number] / MTDD
[2021-10-26 16:32] LABS: Glucose,Whole Blood 94 mg/dL (75-99)
[2021-10-26] MEDS: SODIUM CHLORIDE 0.9% 1,000 ML IV SCH (19:34)
--- NOTE | 2021-10-26 19:41 | PN ---
PROGRESS NOTE DATE OF SERVICE: 10/26/2021 This 61-year-old woman who was admitted with change in mental status is being evaluated for possible TIA. The patient had UTI also. Neurology is following the patient for possible TIA and possible stroke as well. No chest pain. No palpitation. PHYSICAL EXAMINATION: Pulse is 90, blood pressure 111/60, respirations 16. CHEST: Clear to auscultation. CARDIOVASCULAR: S1, S2 muffled. ABDOMEN: Soft. NERVOUS SYSTEM: Diffusely weak and some contractures. LABS: Reviewed. WBC 16.3. ASSESSMENT: 1. Weakness and change in mental status; possible acute transient ischemic attack. 2. Possible urinary tract infection. 3. History of cerebrovascular accident. 4. Gait dysfunction. 5. Diabetes mellitus, type 2. 6. Hyperlipidemia. 7. History of MRSA. RECOMMENDATIONS AND DISCUSSION: I recommend to continue current medications, continue with the monitoring, symptomatic treatment. Add empiric antibiotics. Repeat labs, CBC, BMP. Complete neurovascular workup. The patient is on empiric Keppra. Guarded prognosis. Further recommendations to follow. Discussed with the patient and family at the bedside. MMODL / IJN: [id number] /
[2021-10-26 20:43] LABS: Glucose,Whole Blood 210 mg/dL (75-99)
[2021-10-26] MEDS: ATORVASTATIN 80 MG TAB PO SCH (21:16)
[2021-10-26] MEDS: VENLAFAXINE HCL ER 150 MG CAP PO SCH (21:17)
[2021-10-27 05:41] LABS: Glucose,Whole Blood 133 mg/dL (75-99)
[2021-10-27] MEDS: levETIRAcetam IV 500 MG in SODIUM CHLORIDE 0.9% 100 ML IVPB SCH (06:27)
[2021-10-27] MEDS: INSULIN ASPART (NovoLOG) 100 UNIT/ML VIAL SQ SCH ×4 (06:28→21:02)
[2021-10-27] MEDS: glipiZIDE 10 MG TAB PO SCH ×2 (07:15→18:16)
--- NOTE | 2021-10-27 08:22 | US ---
EXAMINATION TYPE: US carotid duplex BILAT DATE OF EXAM: 10/26/2021 COMPARISON: NONE CLINICAL HISTORY: stroke. stroke attempted exam unable to complete due to patient condition. EXAM MEASUREMENTS: RIGHT: Peak Systolic Velocity (PSV) cm/sec ----- Right CCA: 46 ----- Right ICA: 98.7 ----- Right ECA: ICA/CCA ratio: 2.1 RIGHT: End Diastole cm/sec ----- Right CCA: 18.8 ----- Right ICA: 37.7 ----- Right ECA: LEFT: Peak Systolic Velocity (PSV) cm/sec ----- Left CCA: ----- Left ICA: ----- Left ECA: ICA/CCA ratio: LEFT: End Diastole cm/sec ----- Left CCA: ----- Left ICA: ----- Left ECA: VERTEBRALS (direction of flow): Right Vertebral: Left Vertebral: Rhythm: Attempted exam unable to complete due to patient condition. IMPRESSION: Nondiagnostic study as patient was unable to finished bilateral complete carotid ultra sound evaluation. Criteria for Assigning % of Stenosis / Diameter reduction (Estimation based on the indirect measurements of the internal carotid artery velocities (ICA PSV). 1. Normal (no stenosis)=ICA PSV < 125 cm/s: ratio < 2.0: ICA EDV<40 cm/s. 2. Less than 50% stenosis=ICA PSV < 125 cm/s: ratio < 2.0: ICA EDV<40 cm/s. 3. 50 to 69% stenosis=ICA PSV of 125 to 230 cm/s: ration 2.0 ? 4.0: ICA EDV 40-100 cm/s. 4. Greater than 70% stenosis to near occlusion= ICA PSV > 230 cm/s: ratio > 4.0: ICA EDV > 100 cm/s. 5. Near occlusion= ICA PSV velocities may be low or undetectable: variable ratio and ICA EDV. 6. Total occlusion=unable to detect flow.
--- NOTE | 2021-10-27 08:32 | CA ---
Transthoracic Echo Report Name: Merle Tyson Age: 61 Gender: F : 1960 Exam Date: 10/26/2021 07:49 Exam Location: [facility] [place] Echo Ht (in): 62 Wt (lb): 180 Ordering Physician: Ivory Yates MD Attending/Referring Phys: Document Control Supervisor Tyesha Cordova RDCS Procedure CPT: Indications: stroke Cardiac Hx: Technical Quality: Fair Contrast 1: Total Dose (mL): Contrast 2: Total Dose (mL): MEASUREMENTS (Male / Female) Normal Values 2D ECHO LV Diastolic Diameter PLAX 4.2 cm 4.2 - 5.9 / 3.9 - 5.3 cm LV Systolic Diameter PLAX 2.4 cm IVS Diastolic Thickness 1.1 cm 0.6 - 1.0 / 0.6 - 0.9 cm LVPW Diastolic Thickness 1.2 cm 0.6 - 1.0 / 0.6 - 0.9 cm LV Relative Wall Thickness 0.5 RV Internal Dim ED PLAX 2.5 cm LA Systolic Diameter LX 2.7 cm 3.0 - 4.0 / 2.7 - 3.8 cm M-MODE Aortic Root Diameter MM 3.3 cm MV E Point Septal Separation 0.4 cm AV Cusp Separation MM 1.8 cm DOPPLER AV Peak Velocity 126.7 cm/s AV Peak Gradient 6.4 mmHg MV Area PHT 2.2 cm??? Mitral E Point Velocity 55.1 cm/s Mitral A Point Velocity 66.9 cm/s Mitral E to A Ratio 0.8 MV Deceleration Time 338.7 ms MV E' Velocity 5.3 cm/s Mitral E to MV E' Ratio 10.5 TR Peak Velocity 226.7 cm/s TR Peak Gradient 20.6 mmHg Right Ventricular Systolic Press 25.6 mmHg FINDINGS Left Ventricle Normal left ventricular size, wall thickness, systolic function with no obvious regional wall motion abnormalities. Normal left ventricular diastolic filling pattern for age. The ejection fraction is visually estimated at 65 %. Right Ventricle The right ventricle is normal in size and function. Right ventricular systolic pressure within normal limits. Right Atrium The right atrium is normal in size. Left Atrium The left atrium is normal in size. Mitral Valve Structurally normal mitral valve without significant stenosis or prolapse. There is no mitral regurgitation. Mitral annular calcification. Aortic Valve Structurally normal aortic valve without significant sclerosis or stenosis. There is no aortic regurgitation. Tricuspid Valve Structurally normal tricuspid valve without significant stenosis. Pulmonary artery systolic pressure is normal. Pulmonic Valve Structurally normal pulmonic valve without significant stenosis. There is no pulmonic regurgitation. Pericardium Normal pericardium without effusion. Aorta Normal aortic root dimension. CONCLUSIONS Continue difficult study for interpretation Normal left ventricular dimension and systolic function Previewed by: Dr. Christiano Olson MD (Electronically Signed) Final Date: 27 Oct 2021 08:32
[2021-10-27 09:39] LABS: Basophils % (A) 0 %; Eosinophils # (A) 0.2 k/uL (0-0.7); Eosinophils % (A) 2 %; HCT 42.2 % (34.0-46.0); Lymphocytes # (A) 1.6 k/uL (1.0-4.8); Lymphocytes % (A) 17 %; MCH 27.2 pg (25.0-35.0); MCHC 30.9 g/dL (31.0-37.0); MCV 88.1 fL (80.0-100.0); Monocytes # (A) 0.5 k/uL (0-1.0); Monocytes % (A) 5 %; Neutrophils % (A) 74 %; Platelet Count 204 k/uL (150-450); RBC 4.79 m/uL (3.80-5.40); WBC 9.5 k/uL (3.8-10.6)
[2021-10-27 09:53] LABS: African American GFR (CKD) >90 (>60 ml/min/1.73 sqM); Anion Gap 6 mmol/L; Blood Urea Nitrogen 19 mg/dL (7-17); Calcium 8.5 mg/dL (8.4-10.2); Carbon Dioxide 28 mmol/L (22-30); Chloride 105 mmol/L (98-107); Glucose 188 mg/dL (74-99); Non-African American GFR(CKD) >90 (>60 ml/min/1.73 sqM); Sodium 139 mmol/L (137-145)
[2021-10-27] MEDS: HEPARIN SODIUM,PORCINE/PF 5,000 UNIT/0.5 ML SYRINGE SQ SCH ×2 (09:53→21:02)
[2021-10-27] MEDS: MULTIVITAMINS, THERA 1 EACH TAB PO SCH (10:00)
[2021-10-27 11:43] LABS: Glucose,Whole Blood 175 mg/dL (75-99)
[2021-10-27] MEDS ORDERED: LORazepam 2 MG/ML INJ IV STA (14:11)
--- NOTE | 2021-10-27 14:22 | FL ---
EXAMINATION TYPE: FL barium swallow w video DATE OF EXAM: 10/27/2021 COMPARISON: NONE HISTORY: Altered mental status. FINDINGS: Patient was evaluated in real-time fluoroscopy in the lateral projection while ingesting barium mixe d with liquids and solids. Adrián aspiration with laryngeal penetration noted on thin liquids. Vallecular residuals are also pres ent. No aspiration noted on solid or honey thick consistency. See dictated report from speech patholo gy. 2 minutes 13 seconds fluoroscopy time, no images obtained
--- NOTE | 2021-10-27 15:18 | MR ---
EXAMINATION TYPE: MR brain wo/w con DATE OF EXAM: 10/27/2021 COMPARISON: CT brain 10/25/2021, MR brain 07/28/2018 HISTORY: Seizure TECHNIQUE: Fast brain protocol utilized due to patient's debility Multiplanar, multisequence images of the brain and brainstem is performed without and with IV contras t, utilizing 7.5 mL intravenous Gadavist . FINDINGS: There is motion on exam. Diffusion weighted images demonstrate stricture diffusion in the p eriventricular white matter adjacent to the posterior horn the left lateral ventricle, axial image #1 8, additional punctate focus is oxygen at the level of the thalamus at this level, peripherally withi n the posterior aspect of the left cerebellar hemisphere there is some suggested restricted diffusion on axial image #10, there is corresponding hyperintensity noted on inversion recovery and T2-weighte d sequences. Suspect some encephalomalacia change, white matter signal change within the nicki is note d, confluent hyperintensity the periventricular and subcortical white matter is again noted. Some enc ephalomalacia suspected within the basal ganglia and thalamus on the right. There is no extra-axial fluid collection or significant change in white matter signal abnormality. The ventricular system an d cisternal spaces are normal in size and appearance. The brain volume is age appropriate. Midline structures demonstrate stable morphology. The craniocervical junction appears within normal limits. Post contrast images demonstrate no abnormal enhancement. The dural venous sinuses appear pa tent. The visualized sinuses are clear and the globes are intact. IMPRESSION: Small foci of subacute ischemia, consider embolic disease, there is underlying chronic sm all vessel ischemia change suspected, cortical atrophy similar to prior exam
--- NOTE | 2021-10-27 16:00 | P.PN ---
Subjective Progress Note Date: 10/27/21 The patient is seen at bedside and per the daughter, patient is about the same. Denies any new neurological issues. Objective - Vital Signs Vital signs: Vital Signs Temp 98.7 F 10/27/21 03:27 Pulse 83 10/27/21 03:27 Resp 18 10/27/21 03:27 BP 137/79 10/27/21 03:27 Pulse Ox 96 10/27/21 08:05 FiO2 Intake & Output 10/26/21 10/27/21 10/27/21 18:59 06:59 18:59 Intake Total 120 Output Total 150 0 Balance -30 0 Weight 81.647 kg Intake: Oral 120 Output: Urine 150 0 Other: Voiding Method Diaper Diaper # Voids 1 2 - Exam GENERAL: The patient is lying in bed and is not in acute distress. NEUROLOGICAL: Limited because of her condition/cooperation. Higher mental function: The patient is drowsy but is awakeable to voice, oriented to self. She states she is in the hospital. She is very slow in resp onding. She correctly stated the name of her daughter who is at bedisde. She is following simple commands. Language is limited. No neglect. . Cranial nerves: The pupils are round, equal and reactive to light. No facial droop. Has hoarse voice and per daughter baseline. Sticking tongue out and move sided to side without difficulty. Motor: The strength is lifting all extremities above gravity without difficulty. Cerebellum: Unable to assess. Sensation: Unable to assess. Reflexes (right/left):2+ throughout. Plantars are mute bilaterally. SOME OF THE WORK-UP DURING THIS ADMISSION: MRI Brain: Is reported as small foci of subacute ischemia, consider embolic disease. There is underlying chronic small vessel ischemic change suspected, cortical atrophy similar to prior exam. The subacute ischemia is over the left lateral ventricle over the posterior horn periventricular region, thalamus, left cerebellar. I personally reviewed the MRI and agree the patient has multiple foci over the left hemisphere left cerebellar. Also the patient has encephalomalacia over the basal ganglia and thalamus over the right. Routine EEG is abnormal. The background slowing is suggestive of mild en cephalopathy of unknown etiology. Otherwise, there is no focal slowing, epileptiform discharges or seizure on the EEG. 2Decho: Continue difficult study for interpretation. Normal left ventricular di mension and systolic function. Normal left atrial size Carotid duplex: Nondiagnostic study as patient was unable to finished bilateral complet carotid ultrasound evaluation. - Labs CBC & Chem 7: 10/27/21 09:16 10/27/21 09:16 Labs: Abnormal Lab Results - Last 24 Hours (Table) 10/26/21 10/27/21 10/27/21 Range/Units 20:40 05:39 09:16 MCHC 30.9 L (31.0-37.0) g/dL BUN (7-17) mg/dL Glucose (74-99) mg/dL POC Glucose (mg/dL) 210 H 133 H (75-99) mg/dL 10/27/21 10/27/21 Range/Units 09:16 11:42 MCHC (31.0-37.0) g/dL BUN 19 H (7-17) mg/dL Glucose 188 H (74-99) mg/dL POC Glucose (mg/dL) 175 H (75-99) mg/dL Microbiology - Last 24 Hours (Table) 10/26/21 17:32 Urine Culture - Preliminary Urine,Clean Catch Assessment and Plan Assessment: Acute CVA: Multiple foci over the left hemipshere. Seems emoblic. (presented with Right transient facial droop and continues to be confused). No IV tpa since outside window Encephalopathy of unknown etiology TIA about 10 years ago diabetes mellitus hyperlipidemia obstructive sleep apnea on CPAP diabetic retinopathy diabetic neuropathy Plan: MRI Brain: Is reported as small foci of subacute ischemia, consider embolic disease. There is underlying chronic small vessel ischemic change suspected, cortical atrophy similar to prior exam. The subacute ischemia is over the left lateral ventricle over the posterior horn periventricular region, thalamus, left cerebellar. I personally reviewed the MRI and agree the patient has multiple foci over the left hemisphere left cerebellar. Also the patient has encephalomalacia over the basal ganglia and thalamus over the right. Continued her home ASA 81mg daily and started Plavix 75mg daily. On lipitor 80mg qhs for secondary stroke prophylaxis. Recommend Cardiology consultation for JAI and event monitor. I stopped Keppra since no seizure. Recommend repeating carotid duplex since limited because of cooperation. She is allergic to iodine so cannot get CTA. Ordered lipid panel Continue neuro check Placed on cardiac monitoring PT, OT and TAG PRESS OPERATOR are consulted For DVT prophylaxis: On subq heparin 5000U every 12 hours. We'll defer the rest of the medical management to primary team The plan is discussed with the patient's nurse. Dr. Stein will start Neurology service tomorrow AM. Israel Mcguire M.D. Neuro-Hospitalist Time with Patient: Less than 30
[2021-10-27 16:31] LABS: Glucose,Whole Blood 166 mg/dL (75-99)
[2021-10-27] MEDS: ASPIRIN 81 MG PO SCH (18:16)
[2021-10-27] MEDS: CLOPIDOGREL 75 MG TAB PO SCH (18:17)
[2021-10-27] MEDS: SODIUM CHLORIDE 0.9% 1,000 ML IV SCH (18:25)
[2021-10-27 20:06] LABS: Glucose,Whole Blood 193 mg/dL (75-99)
[2021-10-27] MEDS: ATORVASTATIN 80 MG TAB PO SCH (21:02)
[2021-10-27] MEDS: VENLAFAXINE HCL ER 150 MG CAP PO SCH (21:03)
[2021-10-28] MEDS: SODIUM CHLORIDE 0.9% 1,000 ML IV SCH ×2 (00:32→10:12)
[2021-10-28 06:20] LABS: Glucose,Whole Blood 83 mg/dL (75-99)
[2021-10-28] MEDS: glipiZIDE 10 MG TAB PO SCH ×3 (06:23→17:32)
[2021-10-28] MEDS: INSULIN ASPART (NovoLOG) 100 UNIT/ML VIAL SQ SCH ×4 (06:23→20:04)
--- NOTE | 2021-10-28 09:17 | P.CRDCN ---
History of Present Illness History of present illness: HISTORY OF PRESENTING ILLNESS Patient is a pleasant 61-year-old female with history of diabetes mellitus type 2, hyperlipidemia, obstructive sleep apnea, prior TIA approximately 10 years ago with some vision changes and more recent stroke who presented to Hospital 10/26 secondary to altered mental status, right facial droop and confusion. Patient cannot recall all these details and some of this is supplied by daughter at bedside. He underwent workup with MRI confirming left stroke concerning for embolic etiology. Transthoracic echo 10/26/2021 showed normal EF without significant valvular disease. Carotid Doppler was unable to be completed secondary to patient being noncompliant with exam. EKG shows normal sinus rhythm, left axis deviation, nonspecific T-wave inversions laterally. Troponin noted to be normal at 0.012. She denies any asked pain, pressure, shortness breath. Prior tobacco abuse however quit. REVIEW OF SYSTEMS At the time of my exam: CONSTITUTIONAL: Denies fever or chills. CARDIOVASCULAR: Denies chest pain, shortness of breath, orthopnea, PND or palpitations. RESPIRATORY: Denies cough. GASTROINTESTINAL: Denies abdominal pain, diarrhea, constipation, nausea or vomiting. MUSCULOSKELETAL: Denies myalgias. NEUROLOGIC: +weakness, +AMS. ENDOCRINE: Denies fatigue, weight change, polydipsia or polyurina. GENITOURINARY: Denies burning, hematuria or urgency with micturation. HEMATOLOGIC: Denies history of anemia or bleeding. PHYSICAL EXAMINATION Vital signs reviewed. CONSTITUTIONAL: No apparent distress, confused. HEENT: Head is normocephalic. Pupils are equal, round. Sclerae anicteric. Mucous membranes of the mouth are moist. No JVD. No carotid bruit. CHEST EXAMINATION: Lungs are clear to auscultation. No chest wall tenderness is noted on palpation or with deep breathing. HEART EXAMINATION: Regular rate and rhythm. S1, S2 heard. No murmurs, gallops or rub. ABDOMEN: Soft, nontender. Positive bowel sounds. EXTREMITIES: 2+ peripheral pulses, no lower extremity edema and no calf tenderness. NEUROLOGIC EXAMINATION: Patient is awake, alert confused ASSESSMENT 1. Acute left hemispheric stroke concerning for embolic etiology 2. Diabetes mellitus type 2 3. Hyperlipidemia 4. Prior history of TIA PLAN 2-D echo reviewed without any significant failure disease or cardiac source of emboli. Recommend JAI to further evaluate however this would be unable to be performed until Saturday. Patient currently on aspirin and Plavix and JAI may be performed outpatient. Await carotid ultrasound. 30 day event monitor going home and also may consider loop recorder pending workup and patient's wishes. Patient may be discharged with outpatient follow-up from a cardiology standpoint. If patient is still here on Saturday we can perform JAI. Please call with any questions. Past Medical History Past Medical History: CVA/TIA, Diabetes Mellitus, Hyperlipidemia, Thyroid Disorder Additional Past Medical History / Comment(s): Vertigo, obstructive sleep apnea with CPAP, diabetic retinopathy, diabetic neuropathy. History of Any Multi-Drug Resistant Organisms: MRSA Date of last positivie culture/infection: 01/27/2015 MDRO Source:: Left Elbow Past Surgical History: Cholecystectomy, Hernia Repair, Hysterectomy, Orthopedic Surgery Additional Past Surgical History / Comment(s): Right shoulder surgery, hiatal hernia repair Past Anesthesia/Blood Transfusion Reactions: No Reported Reaction Past Psychological History: No Psychological Hx Reported Smoking Status: Former smoker Past Alcohol Use History: None Reported Additional Past Alcohol Use History / Comment(s): Patient was a smoker of 2 packs per day for 34 years and quit in 2010. She denies any medical marijuana, marijuana, street drug, alcohol use. Patient lives at home with her . She has adult children that come to her home and helped on a daily basis. There are no pets in the home. No recent travel. Past Drug Use History: None Reported - Past Family History Mother Family Medical History: Congestive Heart Failure (CHF), Diabetes Mellitus Medications and Allergies Home Medications Medication Instructions Recorded Confirmed Type Venlafaxine HCl [Venlafaxine HCl 150 mg PO HS 11/19/14 10/25/21 History ER] Aspirin EC [Ecotrin Low Dose] 81 mg PO DAILY 10/25/21 10/25/21 History HYDROcodone/APAP 5-325MG [Hailey 1 tab PO DAILY PRN 10/25/21 10/25/21 History 5-325] Insulin Glargine,Hum.rec.anlog 0 - 30 unit SQ HS 10/25/21 10/25/21 History [Lantus Solostar Pen] Multivitamins, Thera [Multivitamin 1 tab PO DAILY 10/25/21 10/25/21 History (formulary)] Ondansetron [Zofran] 4 mg PO Q8HR PRN 10/25/21 10/25/21 History Rosuvastatin Calcium [Crestor] 40 mg PO HS 10/25/21 10/25/21 History glipiZIDE [Glucotrol] 10 mg PO AC-BID 10/25/21 10/25/21 History metFORMIN HCL ER [Glucophage XR] 500 mg PO BID 10/25/21 10/25/21 History Allergies Allergy/AdvReac Type Severity Reaction Status Date / Time Iodinated Contrast Media Allergy Unknown Verified 10/25/21 16:03 [Iodinated Contrast Media - IV Dye] Physical Exam Vitals: Vital Signs Temp Pulse Resp BP Pulse Ox 10/28/21 04:00 98.4 F 72 16 161/82 97 10/28/21 02:00 78 18 10/28/21 00:00 98.4 F 78 18 163/90 97 10/27/21 21:10 97 10/27/21 20:00 98.4 F 99 18 145/82 97 10/27/21 16:00 98.5 F 82 18 132/87 95 10/27/21 14:00 82 18 10/27/21 12:00 98.6 F 80 18 134/84 96 Intake and Output 10/27/21 10/28/21 10/28/21 22:59 06:59 14:59 Intake Total 540 Output Total 900 Balance 540 -900 Intake: Oral 540 Output: Urine 900 Other: Voiding Method Diaper Diaper External Catheter External Catheter # Voids 1 Results 10/27/21 09:16 10/27/21 09:16 CBC 10/27/21 Range/Units 09:16 WBC 9.5 (3.8-10.6) k/uL RBC 4.79 (3.80-5.40) m/uL Hgb 13.0 (11.4-16.0) gm/dL Hct 42.2 (34.0-46.0) % Plt Count 204 (150-450) k/uL Comprehensive Metabolic Panel 10/27/21 Range/Units 09:16 Sodium 139 (137-145) mmol/L Potassium 4.0 (3.5-5.1) mmol/L Chloride 105 (98-107) mmol/L Carbon Dioxide 28 (22-30) mmol/L BUN 19 H (7-17) mg/dL Creatinine 0.55 (0.52-1.04) mg/dL Glucose 188 H (74-99) mg/dL Calcium 8.5 (8.4-10.2) mg/dL Current Medications Generic Name Dose Route Start Last Admin Trade Name Freq PRN Reason Stop Dose Admin Acetaminophen 650 mg 10/25/21 16:21 Acetaminophen Tab 325 Mg Tab PO Q6HR PRN Mild Pain or Fever > 100.5 Hydrocodone Bitart/Acetaminophen 1 each 10/25/21 17:32 Hydrocodone/Apap 5-325mg 1 Each Tab PO DAILY PRN Pain Aspirin 81 mg 10/27/21 16:00 10/27/21 18:16 Aspirin 81 Mg PO 81 mg DAILY OSMANI Administration Atorvastatin Calcium 80 mg 10/25/21 21:00 10/27/21 21:02 Atorvastatin 80 Mg Tab PO 80 mg HS OSMANI Administration Clopidogrel Bisulfate 75 mg 10/27/21 16:00 10/27/21 18:17 Clopidogrel 75 Mg Tab PO 75 mg DAILY OSMANI Administration Glipizide 10 mg 10/26/21 07:30 10/28/21 06:23 Glipizide 10 Mg Tab PO Not Given AC-BID OSMANI Heparin Sodium (Porcine) 5,000 unit 10/25/21 21:00 10/27/21 21:02 Heparin Sodium,Porcine/Pf 5,000 Unit/0.5 Ml Syringe SQ 5,000 unit Q12HR OSMANI Administration Sodium Chloride 1,000 mls @ 75 mls/hr 10/25/21 16:30 10/28/21 00:32 Saline 0.9% IV Not Given .[id number] [facility] Ceftriaxone Sodium 1 gm/ 50 mls @ 100 mls/hr 10/26/21 16:00 10/27/21 09:53 Sodium Chloride IVPB 100 mls/hr Q24HR [facility] Administration Protocol Insulin Aspart 0 unit 10/25/21 21:00 10/28/21 06:23 Insulin Aspart (Novolog) 100 Unit/Ml Vial SQ Not Given ACHS [facility] Protocol Multivitamins 1 each 10/26/21 09:00 10/27/21 10:00 Multivitamins, Thera 1 Each Tab PO Not Given DAILY OSMANI Naloxone HCl 0.2 mg 10/25/21 16:21 Naloxone 0.4 Mg/Ml 1 Ml Vial IV Q2M PRN Opioid Reversal Ondansetron HCl 4 mg 10/25/21 17:32 Ondansetron 4 Mg Tab PO Q8HR PRN Nausea Venlafaxine HCl 150 mg 10/25/21 21:00 10/27/21 21:03 Venlafaxine Hcl Er 150 Mg Cap PO 150 mg HS OSMANI Administration Intake and Output 10/27/21 10/28/21 10/28/21 22:59 06:59 14:59 Intake Total 540 Output Total 900 Balance 540 -900 Intake: Oral 540 Output: Urine 900 Other: Voiding Method Diaper Diaper External Catheter External Catheter # Voids 1 10/27/21 09:16 10/27/21 09:16
[2021-10-28] MEDS: CLOPIDOGREL 75 MG TAB PO SCH (09:42)
[2021-10-28] MEDS: ASPIRIN 81 MG PO SCH (09:42)
[2021-10-28] MEDS: HEPARIN SODIUM,PORCINE/PF 5,000 UNIT/0.5 ML SYRINGE SQ SCH ×2 (09:42→20:04)
[2021-10-28 09:44] LABS: Chol/HDL Ratio 2.89 Ratio
[2021-10-28] MEDS: MULTIVITAMINS, THERA 1 EACH TAB PO SCH (09:46)
[2021-10-28 11:43] LABS: Glucose,Whole Blood 188 mg/dL (75-99)
[2021-10-28 16:19] LABS: Glucose,Whole Blood 158 mg/dL (75-99)
[2021-10-28 19:56] LABS: Glucose,Whole Blood 135 mg/dL (75-99)
[2021-10-28] MEDS: ATORVASTATIN 80 MG TAB PO SCH (20:04)
[2021-10-28] MEDS: VENLAFAXINE HCL ER 150 MG CAP PO SCH (20:04)
--- NOTE | 2021-10-28 22:12 | P.PN ---
Subjective Progress Note Date: 10/27/21 Patient is a 61-year-old female who was admitted to hospital for altered mental status and will also be treated for acute urinary tract infection. 10/27/2021. Patient is awake alert oriented. No complaints of chest pain or shortness of breath. Patient had MRI of the brain today. MRI of the brain showed small foci of subacute ischemia considered embolic disease. There is underlying chronic small vessel ischemic change suspected. EEG is abnormal. Background slowing is suggestive of mild encephalopathy of unknown etiology. 2D echocardiogram normal left ventricular systolic function. Carotid duplex showed nondiagnostic study as patient is unable to be finished bilateral complete carotid ultrasound evaluation. Patient underwent swallow study. Showed glen aspiration with laryngeal penetration noted on thin liquids. Vallecular residuals are also present. No aspiration noted on solid or honey thick consistency. Laboratory pressure WBC 9.4 hemoglobin 13.0 and platelets 204 Sodium 139 potassium 4.0 chloride 105 bicarb 28 BUN 19 and creatinine 0.55 and blood sugar is 188 LDL 55. Neurology is on board. Cardiology was consulted due to possible embolic etiology and JAI study. Current medications reviewed. Objective - Vital Signs Vital signs: Vital Signs Temp 98.3 F 10/27/21 20:00 Pulse 99 10/27/21 20:00 Resp 18 10/27/21 20:00 BP 152/85 10/27/21 20:00 Pulse Ox 97 10/27/21 21:10 FiO2 Intake & Output 10/27/21 10/27/21 10/28/21 06:59 18:59 06:59 Intake Total 540 Output Total 0 Balance 0 540 Intake: Oral 540 Output: Urine 0 Other: Voiding Method Diaper Diaper Diaper External Catheter # Voids 2 1 - Exam PHYSICAL EXAMINATION: Patient is lying in the bed comfortably, no acute distress, awake alert and oriented.. HEENT: Normocephalic. Neck is supple. Pupils reactive. Nostrils clear. Oral cavity is moist. Neck reveals no JVD, carotid bruits, or thyromegaly. CHEST EXAMINATION: Trachea is central. Symmetrical expansion. Lung tobias clear to auscultation and percussion. CARDIAC: Normal S1, S2 with no gallops. No murmurs ABDOMEN: Soft. Bowel sounds normal. No organomegaly. No abdominal bruits. Extremities: reveal no edema. No clubbing or cyanosis Neurologically awake, alert, oriented x2-3. Patient does have left-sided weakness. Skin: No rash or skin lesions. Psychiatric: Cooperative. Nonsuicidal Musculoskeletal: No joint swelling or deformity. - Labs CBC & Chem 7: 10/27/21 09:16 10/27/21 09:16 Labs: Abnormal Lab Results - Last 24 Hours (Table) 10/27/21 10/27/21 10/27/21 Range/Units 05:39 09:16 09:16 MCHC 30.9 L (31.0-37.0) g/dL BUN 19 H (7-17) mg/dL Glucose 188 H (74-99) mg/dL POC Glucose (mg/dL) 133 H (75-99) mg/dL 10/27/21 10/27/21 10/27/21 Range/Units 11:42 16:29 20:04 MCHC (31.0-37.0) g/dL BUN (7-17) mg/dL Glucose (74-99) mg/dL POC Glucose (mg/dL) 175 H 166 H 193 H (75-99) mg/dL Microbiology - Last 24 Hours (Table) 10/26/21 20:22 Blood Culture - Preliminary Blood No Growth after 24 hours 10/26/21 17:32 Urine Culture - Preliminary Urine,Clean Catch Assessment and Plan Assessment: Acute/subacute CVA with right facial weakness. Possible embolic disease as per MRI. Altered mental status and metabolic encephalopathy Acute urinary tract infection Diabetes type 2 Hyperlipidemia History of TIA History of MRSA Gait dysfunction Diabetic retinopathy neuropathy Obstructive sleep apnea on CPAP DVT prophylaxis on heparin subcu Plan: Patient is being continued aspirin and Plavix. Patient had neurologic work-up done including MRI of the brain. CTA of the neck could not be done as the patient is allergic to iodine dye. Due to embolic etiology cardiology was consulted for JAI and event monitor. Patient does have aspiration with thin liquids and continue with honey thickened liquids and solid diet. GI and DVT prophylaxis. Neurology is on board. Continue to follow closely. Time with Patient: Greater than 30
--- NOTE | 2021-10-28 22:17 | P.PN ---
Subjective Progress Note Date: 10/28/21 Patient is a 61-year-old female who was admitted to hospital for altered mental status and will also be treated for acute urinary tract infection. 10/27/2021. Patient is awake alert oriented. No complaints of chest pain or shortness of breath. Patient had MRI of the brain today. MRI of the brain showed small foci of subacute ischemia considered embolic disease. There is underlying chronic small vessel ischemic change suspected. EEG is abnormal. Background slowing is suggestive of mild encephalopathy of unknown etiology. 2D echocardiogram normal left ventricular systolic function. Carotid duplex showed nondiagnostic study as patient is unable to be finished bilateral complete carotid ultrasound evaluation. Patient underwent swallow study. Showed glen aspiration with laryngeal penetration noted on thin liquids. Vallecular residuals are also present. No aspiration noted on solid or honey thick consistency. Laboratory pressure WBC 9.4 hemoglobin 13.0 and platelets 204 Sodium 139 potassium 4.0 chloride 105 bicarb 28 BUN 19 and creatinine 0.55 and blood sugar is 188 LDL 55. Neurology is on board. Cardiology was consulted due to possible embolic etiology and JAI study. 10/28/2021 Patient is awake alert and oriented. No complaints of chest pain. Patient is currently on high flow oxygen at 8 to 10 L via nasal cannula. Tolerating dysphagia level 1 diet. Patient has been afebrile. No cough or sputum production. No complaints of nausea or vomiting. No headache or dizziness or lightheadedness. Urine culture showed normal sana. Blood cultures have been n egative so far. Laboratory data reviewed. Patient is being continued on aspirin and Plavix and statins. Cardiology is planning for JAI on Saturday or as an outpatient. Current medications reviewed. Objective - Vital Signs Vital signs: Vital Signs Temp 98.5 F 10/28/21 12:00 Pulse 72 10/28/21 16:00 Resp 18 10/28/21 16:00 BP 148/62 10/28/21 16:00 Pulse Ox 97 10/28/21 16:00 FiO2 Intake & Output 10/28/21 10/28/21 10/29/21 06:59 18:59 06:59 Intake Total 540 560 Output Total 900 800 Balance -360 -240 Intake: Oral 540 560 Output: Urine 900 800 Other: Voiding Method Diaper Diaper External Catheter External Catheter - Exam PHYSICAL EXAMINATION: Patient is lying in the bed comfortably, no acute distress, awake alert and oriented.. HEENT: Normocephalic. Neck is supple. Pupils reactive. Nostrils clear. Oral cavity is moist. Neck reveals no JVD, carotid bruits, or thyromegaly. CHEST EXAMINATION: Trachea is central. Symmetrical expansion. Bibasilar diminished sounds.. CARDIAC: Normal S1, S2 with no gallops. No murmurs ABDOMEN: Soft. Bowel sounds normal. No organomegaly. No abdominal bruits. Extremities: reveal no edema. No clubbing or cyanosis Neurologically awake, alert, oriented x2-3. Patient does have left-sided weakness. Skin: No rash or skin lesions. Psychiatric: Cooperative. Nonsuicidal Musculoskeletal: No joint swelling or deformity. - Labs CBC & Chem 7: 10/27/21 09:16 10/27/21 09:16 Labs: Abnormal Lab Results - Last 24 Hours (Table) 10/28/21 10/28/21 10/28/21 Range/Units 11:40 16:16 19:54 POC Glucose (mg/dL) 188 H 158 H 135 H (75-99) mg/dL Microbiology - Last 24 Hours (Table) 10/26/21 17:32 Urine Culture - Final Urine,Clean Catch 10/26/21 20:22 Blood Culture - Preliminary Blood No Growth after 24 hours Assessment and Plan Assessment: Acute/subacute CVA with right facial weakness. Possible embolic disease as per MRI. Altered mental status and metabolic encephalopathy Acute hypoxic respiratory failure requiring high flow oxygen. Acute urinary tract infection Diabetes type 2 Hyperlipidemia History of TIA History of MRSA Gait dysfunction Diabetic retinopathy neuropathy Obstructive sleep apnea on CPAP DVT prophylaxis on heparin subcu Plan: Patient is being continued aspirin and Plavix. Patient had neurologic work-up done including MRI of the brain. CTA of the neck could not be done as the patient is allergic to iodine dye. Due to embolic etiology cardiology was consulted for JAI and event monitor. Patient does have aspiration with thin liquids and continue with honey thickened liquids and solid diet. IV fluids on hold and follow-up repeat chest x-ray. GI and DVT prophylaxis. Neurology is on board. Continue to follow closely. Time with Patient: Greater than 30
--- NOTE | 2021-10-28 22:54 | XR ---
EXAMINATION TYPE: XR chest 1V DATE OF EXAM: 10/28/2021 COMPARISON: 10/25/2021 HISTORY: Hypoxemia TECHNIQUE: FINDINGS: Heart is normal. Lungs are clear of consolidation. There is no heart failure. There are pablo st leads. Bony thorax appears intact. IMPRESSION: No active cardiopulmonary disease. No change.
[2021-10-29 05:40] LABS: Glucose,Whole Blood 94 mg/dL (75-99)
[2021-10-29] MEDS: INSULIN ASPART (NovoLOG) 100 UNIT/ML VIAL SQ SCH ×4 (06:33→21:40)
[2021-10-29 08:05] LABS: African American GFR (CKD) >90 (>60 ml/min/1.73 sqM); Anion Gap 5 mmol/L; Blood Urea Nitrogen 9 mg/dL (7-17); Calcium 8.9 mg/dL (8.4-10.2); Carbon Dioxide 32 mmol/L (22-30); Chloride 104 mmol/L (98-107); Glucose 105 mg/dL (74-99); Non-African American GFR(CKD) >90 (>60 ml/min/1.73 sqM); Potassium 3.7 mmol/L (3.5-5.1); Sodium 141 mmol/L (137-145)
[2021-10-29 08:26] LABS: Basophils % (A) 0 %; Eosinophils # (A) 0.4 k/uL (0-0.7); Eosinophils % (A) 5 %; HCT 43.5 % (34.0-46.0); HGB 13.9 gm/dL (11.4-16.0); Lymphocytes # (A) 1.6 k/uL (1.0-4.8); Lymphocytes % (A) 19 %; MCH 27.5 pg (25.0-35.0); MCV 85.8 fL (80.0-100.0); Mean Platelet Volume 6.5; Monocytes # (A) 0.6 k/uL (0-1.0); Monocytes % (A) 8 %; Neutrophils # (A) 5.5 k/uL (1.3-7.7); Neutrophils % (A) 66 %; Platelet Count 229 k/uL (150-450); RBC 5.07 m/uL (3.80-5.40); RDW 13.3 % (11.5-15.5); WBC 8.3 k/uL (3.8-10.6)
[2021-10-29] MEDS: CLOPIDOGREL 75 MG TAB PO SCH (09:45)
[2021-10-29] MEDS: HEPARIN SODIUM,PORCINE/PF 5,000 UNIT/0.5 ML SYRINGE SQ SCH ×2 (09:45→21:40)
[2021-10-29] MEDS: ASPIRIN 81 MG PO SCH (09:45)
[2021-10-29] MEDS: glipiZIDE 10 MG TAB PO SCH ×2 (09:45→17:54)
[2021-10-29] MEDS: MULTIVITAMINS, THERA 1 EACH TAB PO SCH (09:48)
[2021-10-29 11:46] LABS: Glucose,Whole Blood 254 mg/dL (75-99)
[2021-10-29 16:44] LABS: Glucose,Whole Blood 138 mg/dL (75-99)
[2021-10-29 20:23] LABS: Glucose,Whole Blood 193 mg/dL (75-99)
[2021-10-29] MEDS: VENLAFAXINE HCL ER 150 MG CAP PO SCH (21:40)
[2021-10-29] MEDS: ATORVASTATIN 80 MG TAB PO SCH (21:40)
--- NOTE | 2021-10-30 01:33 | P.PN ---
Subjective Progress Note Date: 10/29/21 Patient is a 61-year-old female who was admitted to hospital for altered mental status and will also be treated for acute urinary tract infection. 10/27/2021. Patient is awake alert oriented. No complaints of chest pain or shortness of breath. Patient had MRI of the brain today. MRI of the brain showed small foci of subacute ischemia considered embolic disease. There is underlying chronic small vessel ischemic change suspected. EEG is abnormal. Background slowing is suggestive of mild encephalopathy of unknown etiology. 2D echocardiogram normal left ventricular systolic function. Carotid duplex showed nondiagnostic study as patient is unable to be finished bilateral complete carotid ultrasound evaluation. Patient underwent swallow study. Showed glen aspiration with laryngeal penetration noted on thin liquids. Vallecular residuals are also present. No aspiration noted on solid or honey thick consistency. Laboratory pressure WBC 9.4 hemoglobin 13.0 and platelets 204 Sodium 139 potassium 4.0 chloride 105 bicarb 28 BUN 19 and creatinine 0.55 and blood sugar is 188 LDL 55. Neurology is on board. Cardiology was consulted due to possible embolic etiology and JAI study. 10/28/2021 Patient is awake alert and oriented. No complaints of chest pain. Patient is currently on high flow oxygen at 8 to 10 L via nasal cannula. Tolerating dysphagia level 1 diet. Patient has been afebrile. No cough or sputum production. No complaints of nausea or vomiting. No headache or dizziness or lightheadedness. Urine culture showed normal sana. Blood cultures have been n egative so far. Laboratory data reviewed. Patient is being continued on aspirin and Plavix and statins. Cardiology is planning for JAI on Saturday or as an outpatient. 10/29/2021 Patient is currently resting in bed. Awake alert oriented x3. No complaints of chest pain or shortness of breath. No nausea vomiting abdominal pain or diarrhea. Patient is scheduled for JAI on Saturday. Urine culture showed normal sana. Laboratory showed WBC 8.3 hemoglobin 13.9 and platelets 229 sodium 141 potassium 3.7, bicarb is 32 BUN 9 and creatinine 0.52 blood sugar 105 patient is being continued on aspirin and Plavix and antibiotics ceftriaxone. Cardiology and neurology is on board. Patient is currently requiring oxygen at 8 L via nasal cannula. Repeat chest x-ray showed no acute cardiopulmonary disease. Current medications reviewed. Objective - Vital Signs Vital signs: Vital Signs Temp 98.5 F 10/29/21 16:00 Pulse 84 05/29/22 16:00 Resp 18 10/29/21 16:00 BP 129/82 10/29/21 16:00 Pulse Ox 96 10/29/21 16:00 FiO2 Intake & Output 10/29/21 10/29/21 10/30/21 06:59 18:59 06:59 Output Total 700 Balance -700 Output: Urine 700 Other: Voiding Method Diaper Diaper External Catheter External Catheter # Voids 3 - Exam PHYSICAL EXAMINATION: Patient is lying in the bed comfortably, no acute distress, awake alert and oriented.. HEENT: Normocephalic. Neck is supple. Pupils reactive. Nostrils clear. Oral cavity is moist. Neck reveals no JVD, carotid bruits, or thyromegaly. CHEST EXAMINATION: Trachea is central. Symmetrical expansion. Bibasilar diminished sounds.. CARDIAC: Normal S1, S2 with no gallops. No murmurs ABDOMEN: Soft. Bowel sounds normal. No organomegaly. No abdominal bruits. Extremities: reveal no edema. No clubbing or cyanosis Neurologically awake, alert, oriented x2-3. Patient does have left-sided weakness. Skin: No rash or skin lesions. Psychiatric: Cooperative. Nonsuicidal Musculoskeletal: No joint swelling or deformity. - Labs CBC & Chem 7: 10/29/21 07:35 10/29/21 07:35 Labs: Abnormal Lab Results - Last 24 Hours (Table) 10/29/21 10/29/21 10/29/21 Range/Units 07:35 11:45 16:43 Carbon Dioxide 32 H (22-30) mmol/L Glucose 105 H (74-99) mg/dL POC Glucose (mg/dL) 254 H 138 H (75-99) mg/dL 10/29/21 Range/Units 20:00 Carbon Dioxide (22-30) mmol/L Glucose (74-99) mg/dL POC Glucose (mg/dL) 193 H (75-99) mg/dL Microbiology - Last 24 Hours (Table) 10/26/21 20:22 Blood Culture - Preliminary Blood No Growth after 48 hours Assessment and Plan Assessment: Acute/subacute CVA with right facial weakness. Possible embolic disease as per MRI. Altered mental status and metabolic encephalopathy. improved. Acute hypoxic respiratory failure requiring high flow oxygen. Acute urinary tract infection Diabetes type 2 Hyperlipidemia History of TIA History of MRSA Gait dysfunction Diabetic retinopathy neuropathy Obstructive sleep apnea on CPAP DVT prophylaxis on heparin subcu Plan: Patient is being continued aspirin and Plavix. Patient had neurologic work-up done including MRI of the brain. CTA of the neck could not be done as the patient is allergic to iodine dye. Due to embolic etiology cardiology was consulted for JAI and event monitor. Patient does have aspiration with thin liquids and continue with honey thickened liquids and solid diet. IV fluids on hold and follow-up repeat chest x-ray-no acute process. titrate down O2 GI and DVT prophylaxis. Neurology is on board. Continue to follow closely. Time with Patient: Greater than 30
[2021-10-30 06:20] LABS: Glucose,Whole Blood 94 mg/dL (75-99)
[2021-10-30] MEDS: INSULIN ASPART (NovoLOG) 100 UNIT/ML VIAL SQ SCH ×4 (06:25→20:59)
[2021-10-30] MEDS: glipiZIDE 10 MG TAB PO SCH ×2 (06:25→16:57)
[2021-10-30] MEDS ORDERED: FUROSEMIDE 10 MG/ML 2 ML VIAL IV ONE (08:00)
[2021-10-30 08:32] LABS: African American GFR (CKD) >90 (>60 ml/min/1.73 sqM); Anion Gap 7 mmol/L; Blood Urea Nitrogen 17 mg/dL (7-17); Calcium 9.1 mg/dL (8.4-10.2); Carbon Dioxide 35 mmol/L (22-30); Chloride 98 mmol/L (98-107); Glucose 98 mg/dL (74-99); Non-African American GFR(CKD) >90 (>60 ml/min/1.73 sqM); Potassium 3.9 mmol/L (3.5-5.1); Sodium 140 mmol/L (137-145)
[2021-10-30] MEDS: MULTIVITAMINS, THERA 1 EACH TAB PO SCH (09:03)
[2021-10-30] MEDS: ASPIRIN 81 MG PO SCH (09:03)
[2021-10-30] MEDS: CLOPIDOGREL 75 MG TAB PO SCH (09:03)
[2021-10-30] MEDS: HEPARIN SODIUM,PORCINE/PF 5,000 UNIT/0.5 ML SYRINGE SQ SCH ×3 (09:04→23:30)
--- NOTE | 2021-10-30 10:47 | P.PN ---
Subjective Progress Note Date: 10/29/21 Patient was initially seen by Dr. Israel Mcguire. Please refer to his note for detail. Patient is a 61-year-old female with recent multiple small strokes over the left hemisphere. Dr. Mcguire had consulted cardiology for JAI and event monitor. Currently on aspirin and Plavix. At home patient was only taking aspirin 81 mg daily. MRI Brain: Is reported as small foci of subacute ischemia, consider embolic disease. There is underlying chronic small vessel ischemic change suspected, cortical atrophy similar to prior exam. The subacute ischemia is over the left lateral ventricle over the posterior horn periventricular region, left cerebellar. I personally reviewed the MRI and agree the patient has multiple foci over the left hemisphere left cerebellar, as mentioned above. I did not appreciate left thalamic infarct as noted by Dr. Mcguire. Routine EEG is abnormal. The background slowing is suggestive of mild encephalopathy of unknown etiology. Otherwise, there is no focal slowing, epileptiform discharges or seizure on the EEG. 2Decho: Continue difficult study for interpretation. Normal left ventricular dimension and systolic function. Normal left atrial size Carotid duplex: Nondiagnostic study as patient was unable to finished bilateral complet carotid ultrasound evaluation. Objective - Vital Signs Vital signs: Vital Signs Temp 98.2 F 10/29/21 04:00 Pulse 73 10/29/21 04:00 Resp 18 10/29/21 02:00 BP 146/84 10/29/21 04:00 Pulse Ox 96 10/29/21 04:00 FiO2 Intake & Output 10/28/21 10/29/21 10/29/21 18:59 06:59 18:59 Intake Total 560 Output Total 800 Balance -240 Intake: Oral 560 Output: Urine 800 Other: Voiding Method Diaper Diaper External Catheter External Catheter # Voids 3 - Exam GENERAL: The patient is lying in bed and is not in acute distress. NEUROLOGICAL: Higher mental function: The patient is awake and alert. Patient knows that she is in [place] in a hospital. She thinks it is July and the year is 2021. Patient is following simple commands. Language is limited. No neglect. . Her speech is slightly dysarthric. No aphasia. Patient can name and repeat. Cranial nerves: The pupils are round, equal and reactive to light. No facial droop. Visual tobias are full with no neglect. Has hoarse voice and per daugh ter baseline. Sticking tongue out and move sided to side without difficulty. Motor: The strength is normal in arms and legs distally and proximally. Cerebellum: No ataxia for [id number] testing. Sensation: Equal bilaterally, no neglect. Reflexes (right/left):2+ throughout. - Labs CBC & Chem 7: 10/29/21 07:35 10/30/21 07:00 Labs: Abnormal Lab Results - Last 24 Hours (Table) 10/28/21 10/28/21 10/29/21 Range/Units 16:16 19:54 07:35 Carbon Dioxide 32 H (22-30) mmol/L Glucose 105 H (74-99) mg/dL POC Glucose (mg/dL) 158 H 135 H (75-99) mg/dL 10/29/21 Range/Units 11:45 Carbon Dioxide (22-30) mmol/L Glucose (74-99) mg/dL POC Glucose (mg/dL) 254 H (75-99) mg/dL Microbiology - Last 24 Hours (Table) 10/26/21 20:22 Blood Culture - Preliminary Blood No Growth after 48 hours 10/26/21 17:32 Urine Culture - Final Urine,Clean Catch Assessment and Plan Assessment: Acute CVA: Multiple foci (x2), over the left hemipshere in the posterior periventricular region and tiny area in the left cerebellum. Seems emoblic. (presented with Right transient facial droop and continues to be confused). No IV tpa since outside window Encephalopathy of unknown etiology TIA about 10 years ago diabetes mellitus hyperlipidemia obstructive sleep apnea on CPAP diabetic retinopathy diabetic neuropathy Plan: MRI Brain: Is reported as small foci of subacute ischemia, consider embolic disease. There is underlying chronic small vessel ischemic change suspected, cortical atrophy similar to prior exam. The subacute ischemia is over the left lateral ventricle over the posterior horn periventricular region, thalamus, left cerebellar. I personally reviewed the MRI and agree the patient has multiple foci over the left hemisphere left cerebellar. Continued her home ASA 81mg daily and started Plavix 75mg daily. Cardiology on board. Patient to undergo JAI on Saturday and event monitor placement. Recommend repeating carotid duplex since limited because of cooperation. She is allergic to iodine so cannot get CTA. Lipid panel with cholesterol 118, LDL 55, HDL 40 and triglycerides were 11. Continue Lipitor 80 mg daily. Hemoglobin A1c 6.8 on 09/15/2021. Continue neuro check Placed on cardiac monitoring PT, OT and CHAIR MECHANIC are consulted For DVT prophylaxis: On subq heparin 5000U every 12 hours. We'll defer the rest of the medical management to primary team
[2021-10-30 11:57] LABS: Glucose,Whole Blood 222 mg/dL (75-99)
--- NOTE | 2021-10-30 14:27 | P.PN ---
Subjective Progress Note Date: 10/30/21 Patient is a 61-year-old female who was admitted to hospital for altered mental status and will also be treated for acute urinary tract infection. 10/27/2021. Patient is awake alert oriented. No complaints of chest pain or shortness of breath. Patient had MRI of the brain today. MRI of the brain showed small foci of subacute ischemia considered embolic disease. There is underlying chronic small vessel ischemic change suspected. EEG is abnormal. Background slowing is suggestive of mild encephalopathy of unknown etiology. 2D echocardiogram normal left ventricular systolic function. Carotid duplex showed nondiagnostic study as patient is unable to be finished bilateral complete carotid ultrasound evaluation. Patient underwent swallow study. Showed glen aspiration with laryngeal penetration noted on thin liquids. Vallecular residuals are also present. No aspiration noted on solid or honey thick consistency. Laboratory pressure WBC 9.4 hemoglobin 13.0 and platelets 204 Sodium 139 potassium 4.0 chloride 105 bicarb 28 BUN 19 and creatinine 0.55 and blood sugar is 188 LDL 55. Neurology is on board. Cardiology was consulted due to possible embolic etiology and JAI study. 10/28/2021 Patient is awake alert and oriented. No complaints of chest pain. Patient is currently on high flow oxygen at 8 to 10 L via nasal cannula. Tolerating dysphagia level 1 diet. Patient has been afebrile. No cough or sputum production. No complaints of nausea or vomiting. No headache or dizziness or li ghtheadedness. Urine culture showed normal sana. Blood cultures have been negative so far. Laboratory data reviewed. Patient is being continued on aspirin and Plavix and statins. Cardiology is pl anning for JAI on Saturday or as an outpatient. 10/29/2021 Patient is currently resting in bed. Awake alert oriented x3. No complaints of chest pain or shortness of breath. No nausea vomiting abdominal pain or diarrhea. Patient is scheduled for JAI on Saturday. Urine culture showed normal sana. Laboratory showed WBC 8.3 hemoglobin 13.9 and platelets 229 sodium 141 potassium 3.7, bicarb is 32 BUN 9 and creatinine 0.52 blood sugar 105 patient is being continued on aspirin and Plavix and antibiotics ceftriaxone. Cardiology and neurology is on board. Patient is currently requiring oxygen at 8 L via nasal cannula. Repeat chest x-ray showed no acute cardiopulmonary disease. 10/30/2021 Patient is seen and evaluated and follow-up this morning currently sitting up in the chair with family at the bedside. Cardiology has been consulted and will have possible JAI tomorrow with neurological workup in process. Patient also being treated for an acute urinary tract infection and is maintained on ceftriaxone. Patient currently maintained on 8 L high flow and weaning as tolerated. Neurology concern for possible embolic source of this acute CVA. Per daughter at the bedside patient does not wear any oxygen in the outpatient setting. Urine cultures have been negative. She denies any chest pain or worsening shortness of breath. Patient is afebrile and is tolerating diet with no reports of nausea or vomiting noted. Active Medications Acetaminophen (Acetaminophen Tab 325 Mg Tab) 650 mg PO Q6HR PRN PRN Reason: Mild Pain or Fever > 100.5 Hydrocodone Bitart/Acetaminophen (Hydrocodone/Apap 5-325mg 1 Each Tab) 1 each PO DAILY PRN PRN Reason: Pain Aspirin (Aspirin 81 Mg) 81 mg PO DAILY [facility] Last Admin: 10/30/21 09:03 Dose: 81 mg Atorvastatin Calcium (Atorvastatin 80 Mg Tab) 80 mg PO HS [facility] Last Admin: 10/29/21 21:40 Dose: 80 mg Clopidogrel Bisulfate (Clopidogrel 75 Mg Tab) 75 mg PO DAILY [facility] Last Admin: 10/30/21 09:03 Dose: 75 mg Glipizide (Glipizide 10 Mg Tab) 10 mg PO AC-BID [facility] Last Admin: 10/30/21 06:25 Dose: 10 mg Heparin Sodium (Porcine) (Heparin Sodium,Porcine/Pf 5,000 Unit/0.5 Ml Syringe) 5,000 unit SQ Q8HR [facility] Last Admin: 10/30/21 09:04 Dose: 5,000 unit Ceftriaxone Sodium 1 gm/ (Sodium Chloride) 50 mls @ 100 mls/hr IVPB Q24HR [facility]; Protocol Last Admin: 10/30/21 09:04 Dose: 100 mls/hr Insulin Aspart (Insulin Aspart (Novolog) 100 Unit/Ml Vial) 0 unit SQ ACHS [facility]; Protocol Last Admin: 10/30/21 12:07 Dose: 3 unit Multivitamins (Multivitamins, Thera 1 Each Tab) 1 each PO DAILY [facility] Last Admin: 10/30/21 09:03 Dose: 1 each Naloxone HCl (Naloxone 0.4 Mg/Ml 1 Ml Vial) 0.2 mg IV Q2M PRN PRN Reason: Opioid Reversal Ondansetron HCl (Ondansetron 4 Mg Tab) 4 mg PO Q8HR PRN PRN Reason: Nausea Venlafaxine HCl (Venlafaxine Hcl Er 150 Mg Cap) 150 mg PO HS [facility] Last Admin: 10/29/21 21:40 Dose: 150 mg PHYSICAL EXAMINATION: Patient is sitting up in the chair, awake alert and oriented 2. HEENT: Normocephalic. Neck is supple. Pupils reactive. Nostrils clear. Oral cavity is moist. Neck reveals no JVD, carotid bruits, or thyromegaly. CHEST EXAMINATION: Trachea is central. Symmetrical expansion. Bibasilar diminished sounds with some scattered rhonchi noted.. CARDIAC: S1, S2 are muffled ABDOMEN: Soft. Bowel sounds normal. No organomegaly. No abdominal bruits. Extremities: reveal no edema. No clubbing or cyanosis Neurologically awake, alert, oriented x2-3. Patient does have left-sided weakness. Skin: No rash or skin lesions. Psychiatric: Cooperative. Non-suicidal Musculoskeletal: No joint swelling or deformity. Assessment: Acute/subacute CVA with right facial weakness. Possible embolic disease as per MRI. Plan for JAI on 10/31/2021 Altered mental status and metabolic encephalopathy. improved. Acute hypoxic respiratory failure requiring high flow oxygen. Acute urinary tract infection, present on admission Diabetes type 2 Hyperlipidemia History of TIA History of MRSA Gait dysfunction Diabetic retinopathy neuropathy Obstructive sleep apnea on CPAP DVT prophylaxis on heparin subcu Full code Plan: Patient is being continued aspirin and Plavix. Patient had neurologic work-up done including MRI of the brain. CTA of the neck could not be done as the patient is allergic to iodine dye. Due to embolic etiology cardiology was consulted for JAI and event monitor. JAI to be done on 10/31/2021 Patient does have aspiration with thin liquids and continue with honey thickened liquids and solid diet. Speech therapy following recommend continue IV fluids on hold and follow-up repeat chest x-ray-no acute process. titrate down O2, currently maintained on 8 L high flow and continue weaning as patient does not normally wear any oxygen in the outpatient setting GI and DVT prophylaxis. Neurology is on board. Continue to follow closely.. PT/OT to evaluate as patient may likely need ECF for continued weakness Due to multiple complex medical issues, prognosis is guarded. Will await JAI. The impression and plan of care has been dictated by Cynthia Héctor, Nurse Practitioner as directed. Dr. Milan MD I have performed a history and examination and MDM of this patient, discussed the same with the dictator, and agree with the dictator's assessment and plan as written ,documented as a scribe. Based on total visit time, I have performed more than 50% of the visit. Objective - Vital Signs Vital signs: Vital Signs Temp 96.8 F L 10/30/21 08:56 Pulse 84 10/30/21 08:56 Resp 18 10/30/21 08:56 BP 125/75 10/30/21 08:56 Pulse Ox 97 10/30/21 08:56 FiO2 Intake & Output 10/29/21 10/30/21 10/30/21 18:59 06:59 18:59 Intake Total 128 Output Total 700 Balance -700 128 Intake: IV 10 Invasive Line 2 10 Oral 118 Output: Urine 700 Other: Voiding Method Diaper Diaper Diaper External Catheter External Catheter External Catheter # Voids 2 1 - Labs CBC & Chem 7: 10/29/21 07:35 10/30/21 07:00 Labs: Abnormal Lab Results - Last 24 Hours (Table) 10/29/21 10/29/21 10/30/21 Range/Units 16:43 20:00 07:00 Carbon Dioxide 35 H (22-30) mmol/L POC Glucose (mg/dL) 138 H 193 H (75-99) mg/dL 10/30/21 Range/Units 11:55 Carbon Dioxide (22-30) mmol/L POC Glucose (mg/dL) 222 H (75-99) mg/dL Microbiology - Last 24 Hours (Table) 10/26/21 20:22 Blood Culture - Preliminary Blood No Growth after 72 hours
[2021-10-30 16:41] LABS: Glucose,Whole Blood 128 mg/dL (75-99)
[2021-10-30 20:35] LABS: Glucose,Whole Blood 200 mg/dL (75-99)
[2021-10-30] MEDS: ATORVASTATIN 80 MG TAB PO SCH (20:58)
[2021-10-30] MEDS: VENLAFAXINE HCL ER 150 MG CAP PO SCH (20:59)
[2021-10-31 06:09] LABS: Glucose,Whole Blood 135 mg/dL (75-99)
[2021-10-31] MEDS: INSULIN ASPART (NovoLOG) 100 UNIT/ML VIAL SQ SCH ×4 (06:27→20:55)
[2021-10-31] MEDS: HEPARIN SODIUM,PORCINE/PF 5,000 UNIT/0.5 ML SYRINGE SQ SCH ×3 (08:03→23:39)
[2021-10-31] MEDS: MULTIVITAMINS, THERA 1 EACH TAB PO SCH (08:03)
[2021-10-31] MEDS: CLOPIDOGREL 75 MG TAB PO SCH (08:03)
[2021-10-31] MEDS: ASPIRIN 81 MG PO SCH (08:03)
[2021-10-31 11:58] LABS: Glucose,Whole Blood 167 mg/dL (75-99)
--- NOTE | 2021-10-31 12:30 | P.PN ---
Subjective Patient is a pleasant 61-year-old female with history of diabetes mellitus type 2, hyperlipidemia, obstructive sleep apnea, prior TIA approximately 10 years ago with some vision changes. She does not follow with a machine rough rounder. We have been asked to see in consultation for JIA. Patient presented to Hospital 10/26 secondary to altered mental status, right facial droop and confusion. She underwent workup with MRI confirming left stroke concerning for embolic etiology. Transthoracic echo 10/26/2021 showed normal EF without significant valvular disease. Carotid Doppler was unable to be completed secondary to patient being noncompliant with exam. EKG shows normal sinus rhythm, left axis deviation, nonspecific T-wave inversions laterally. Troponin noted to be normal at 0.012. Prior tobacco abuse however quit. 10/31/2021 Patient seen and examined at bedside, no acute distress. Vital signs are stable. Patient is maintaining sinus mechanism HR 70s-80s, no arrhythmia noted. Currently maintained on aspirin and milligrams daily, atorvastatin 80 mg nightly, Plavix 75 mg daily PHYSICAL EXAMINATION Vital signs reviewed. CONSTITUTIONAL: No apparent distress, confused. HEENT: Head is normocephalic. Neck Supple. No JVD. CHEST EXAMINATION: Lungs are clear to auscultation. No chest wall tenderness is noted on palpation or with deep breathing. HEART EXAMINATION: Regular rate and rhythm. S1, S2 heard. No murmurs, gallops or rub. ABDOMEN: Soft, nontender. Positive bowel sounds. EXTREMITIES: 2+ peripheral pulses, no lower extremity edema and no calf tenderness. NEUROLOGIC EXAMINATION: Patient is awake, alert confused ASSESSMENT Acute left hemispheric stroke concerning for embolic etiology Diabetes mellitus type 2 Hyperlipidemia Prior history of TIA PLAN -Plan for JAI tomorrow 11/01/[address] Owens -NPO after midnight -30 day event monitor recommended to be placed prior to discharge -If JAI with no acute findings, no further inpatient workup from a cardiology perspective. Recommend close follow up outpatient. Nurse practitioner note has been reviewed by physician. Signing provider agrees with the documented findings, assessment, and plan of care. Objective - Vital Signs Vital signs: Vital Signs Temp 98.4 F 10/31/21 11:15 Pulse 78 10/31/21 12:14 Resp 18 10/31/21 12:14 BP 122/75 10/31/21 11:15 Pulse Ox 97 10/31/21 11:15 FiO2 Intake & Output 10/30/21 10/31/21 10/31/21 18:59 06:59 18:59 Intake Total 246 60 Output Total 50 Balance 246 -50 60 Weight 81.647 kg Intake: IV 10 10 Invasive Line 2 10 10 Intake, IV Titration 50 Amount cefTRIAXone 1 gm In 50 Sodium Chloride 0.9% 50 ml @ 100 mls/hr IVPB Q24HR [facility] Rx#:[id number] Oral 236 Output: Urine 50 Other: Voiding Method Diaper Diaper Diaper External Catheter # Voids 2 1 - Labs CBC & Chem 7: 10/29/21 07:35 10/30/21 07:00 Labs: Abnormal Lab Results - Last 24 Hours (Table) 10/30/21 10/30/21 10/31/21 Range/Units 16:37 20:33 06:07 POC Glucose (mg/dL) 128 H 200 H 135 H (75-99) mg/dL 10/31/21 Range/Units 11:56 POC Glucose (mg/dL) 167 H (75-99) mg/dL Microbiology - Last 24 Hours (Table) 10/26/21 20:22 Blood Culture - Preliminary Blood No Growth after 96 hours
[2021-10-31] MEDS: glipiZIDE 10 MG TAB PO SCH ×2 (12:33→17:06)
--- NOTE | 2021-10-31 12:37 | XR ---
EXAMINATION TYPE: XR chest 1V DATE OF EXAM: 10/31/2021 COMPARISON: 10/28/2021 HISTORY: 61-year-old female shortness of breath, rule out aspiration pneumonia TECHNIQUE: Single frontal view of the chest is obtained. FINDINGS: Heart normal size. Mild interstitial prominence is unchanged. Mild patchy left basilar density. Marisela cystectomy clips. Some surgical material just below the GE junction. No frankly progressive consolida tion or sizable pleural effusion. IMPRESSION: Chronic-appearing changes. In addition, there is mild patchy atelectasis versus early infiltrate at t he left base.
--- NOTE | 2021-10-31 15:24 | P.PN ---
Subjective Progress Note Date: 10/31/21 10/31/2021: Patient laying comfortably in the bed. Patient's family members were present. Patient denies headache. Offers no complaints. Per family, patient has improved, but not back to baseline. 10/29/2021: Patient was initially seen by Dr. Israel Mcguire. Please refer to his note for detail. Patient is a 61-year-old female with recent multiple small strokes over the left hemisphere. Dr. Mcguire had consulted cardiology for JAI and event monitor. Currently on aspirin and Plavix. At home patient was only taking aspirin 81 mg daily. MRI Brain: Is reported as small foci of subacute ischemia, consider embolic disease. There is underlying chronic small vessel ischemic change suspected, cortical atrophy similar to prior exam. The subacute ischemia is over the left lateral ventricle over the posterior horn periventricular region, left cerebellar. I personally reviewed the MRI and agree the patient has multiple foci over the left hemisphere left cerebellar, as mentioned above. I did not appreciate left thalamic infarct as noted by Dr. Mcguire. Routine EEG is abnormal. The background slowing is suggestive of mild encephalopathy of unknown etiology. Otherwise, there is no focal slowing, epileptiform discharges or seizure on the EEG. 2Decho: Continue difficult study for interpretation. Normal left ventricular dimension and systolic function. Normal left atrial size Carotid duplex: Nondiagnostic study as patient was unable to finished bilateral complet carotid ultrasound evaluation. Objective - Vital Signs Vital signs: Vital Signs Temp 98.4 F 10/31/21 11:15 Pulse 78 10/31/21 12:14 Resp 18 10/31/21 12:14 BP 122/75 10/31/21 11:15 Pulse Ox 97 10/31/21 11:15 FiO2 Intake & Output 10/30/21 10/31/21 10/31/21 18:59 06:59 18:59 Intake Total 246 240 Output Total 50 Balance 246 -50 240 Weight 81.647 kg Intake: IV 10 10 Invasive Line 2 10 10 Intake, IV Titration 50 Amount cefTRIAXone 1 gm In 50 Sodium Chloride 0.9% 50 ml @ 100 mls/hr IVPB Q24HR [facility] Rx#:[id number] Oral 236 180 Output: Urine 50 Other: Voiding Method Diaper Diaper Diaper External Catheter # Voids 2 1 - Exam GENERAL: The patient is lying in bed and is not in acute distress. NEUROLOGICAL: Higher mental function: The patient is awake and alert. Patient knows that she is in [place] in a hospital. She thinks it is July and the year is 2021. Patient is following simple commands. Language is limited. No neglect. . Her speech is slightly dysarthric. No aphasia. Patient can name and repeat. Cranial nerves: The pupils are round, equal and reactive to light. No facial droop. Visual tobias are full with no neglect. Has hoarse voice and per daughter baseline. Sticking tongue out and move sided to side without difficulty. Motor: The strength is normal in arms and legs distally and proximally. Cerebellum: No ataxia for [id number] testing. Sensation: Equal bilaterally, no neglect. Reflexes (right/left):2+ throughout. - Labs CBC & Chem 7: 10/29/21 07:35 10/30/21 07:00 Labs: Abnormal Lab Results - Last 24 Hours (Table) 10/30/21 10/30/21 10/31/21 Range/Units 16:37 20:33 06:07 POC Glucose (mg/dL) 128 H 200 H 135 H (75-99) mg/dL 10/31/21 Range/Units 11:56 POC Glucose (mg/dL) 167 H (75-99) mg/dL Microbiology - Last 24 Hours (Table) 10/26/21 20:22 Blood Culture - Preliminary Blood No Growth after 96 hours Assessment and Plan Assessment: Acute CVA: Multiple foci (x2), over the left hemipshere in the posterior periventricular region and tiny area in the left cerebellum. Seems emoblic. (presented with Right transient facial droop and continues to be confused). No IV tpa since outside window Encephalopathy of unknown etiology TIA about 10 years ago diabetes mellitus hyperlipidemia obstructive sleep apnea on CPAP diabetic retinopathy diabetic neuropathy Plan: MRI Brain: Is reported as small foci of subacute ischemia, consider embolic disease. There is underlying chronic small vessel ischemic change suspected, cortical atrophy similar to prior exam. The subacute ischemia is over the left lateral ventricle over the posterior horn periventricular region, left cerebellar. I personally reviewed the MRI and agree the patient has multiple foci over the left hemisphere left cerebellar as mentioned. Continue dual antiplatelet medication with Plavix 75 mg and aspirin 81 mg daily. After 21 days, may stop aspirin and maintain on Plavix and 5 mg daily. (Patient was taking aspirin prior to arrival to the hospital) Cardiology on board. Patient to undergo JAI and event monitor placement. Telemetry monitoring showing sinus rhythm, no other arrhythmia. Repeat carotid Doppler, as the previous study was nondiagnostic. She is allergic to iodine so cannot get CTA. Lipid panel with cholesterol 118, LDL 55, HDL 40 and triglycerides were 11. Continue Lipitor 80 mg daily. Hemoglobin A1c 6.8 on 09/15/2021. Continue neuro check Placed on cardiac monitoring PT, OT and SENIOR CORPORATE ACCOUNTANT are consulted For DVT prophylaxis: On subq heparin 5000U every 12 hours. We'll defer the rest of the medical management to primary team
--- NOTE | 2021-10-31 16:18 | US ---
EXAMINATION TYPE: US carotid duplex BILAT DATE OF EXAM: 10/31/2021 COMPARISON: Carotid 5 DAYS AGO CLINICAL HISTORY: CVA. Previous nondiagnostic study. Need repeat t. patient was uncooperative for e xam a few days ago, reattempt. Patient was poor historian, AMS EXAM MEASUREMENTS: RIGHT: Peak Systolic Velocity (PSV) cm/sec ----- Right CCA: 52.1 ----- Right ICA: 78.7 ----- Right ECA: 137 ICA/CCA ratio: 1.5 RIGHT: End Diastole cm/sec ----- Right CCA: 9.4 ----- Right ICA: 14.8 ----- Right ECA: 0.0 LEFT: Peak Systolic Velocity (PSV) cm/sec ----- Left CCA: 61.9 ----- Left ICA: 96.9 ----- Left ECA: 86.8 ICA/CCA ratio: 1.5 LEFT: End Diastole cm/sec ----- Left CCA: 11.4 ----- Left ICA: 24.3 ----- Left ECA: 8.7 VERTEBRALS (direction of flow): Right Vertebral: Antegrade Left Vertebral: Antegrade Rhythm: Normal Mild heterogeneous plaque with no significant stenosis seen IMPRESSION: No hemodynamically significant stenosis in either internal carotid artery. Criteria for Assigning % of Stenosis / Diameter reduction (Estimation based on the indirect measurements of the internal carotid artery velocities (ICA PSV). 1. Normal (no stenosis)=ICA PSV < 125 cm/s: ratio < 2.0: ICA EDV<40 cm/s. 2. Less than 50% stenosis=ICA PSV < 125 cm/s: ratio < 2.0: ICA EDV<40 cm/s. 3. 50 to 69% stenosis=ICA PSV of 125 to 230 cm/s: ration 2.0 ? 4.0: ICA EDV 40-100 cm/s. 4. Greater than 70% stenosis to near occlusion= ICA PSV > 230 cm/s: ratio > 4.0: ICA EDV > 100 cm/s. 5. Near occlusion= ICA PSV velocities may be low or undetectable: variable ratio and ICA EDV. 6. Total occlusion=unable to detect flow.
[2021-10-31] MEDS ORDERED: LACTULOSE 20 GM/30 ML CUP PO PRN (16:27)
[2021-10-31 16:31] LABS: Glucose,Whole Blood 174 mg/dL (75-99)
[2021-10-31] MEDS: PIPERACILLIN-TAZOBACTAM 3.375 GM in SODIUM CHLORIDE 0.9% 100 ML IVPB SCH ×2 (17:05→23:37)
--- NOTE | 2021-10-31 18:45 | P.PN ---
Subjective Progress Note Date: 10/31/21 Patient is a 61-year-old female who was admitted to hospital for altered mental status and will also be treated for acute urinary tract infection. 10/27/2021. Patient is awake alert oriented. No complaints of chest pain or shortness of breath. Patient had MRI of the brain today. MRI of the brain showed small foci of subacute ischemia considered embolic disease. There is underlying chronic small vessel ischemic change suspected. EEG is abnormal. Background slowing is suggestive of mild encephalopathy of unknown etiology. 2D echocardiogram normal left ventricular systolic function. Carotid duplex showed nondiagnostic study as patient is unable to be finished bilateral complete carotid ultrasound evaluation. Patient underwent swallow study. Showed glen aspiration with laryngeal penetration noted on thin liquids. Vallecular residuals are also present. No aspiration noted on solid or honey thick consistency. Laboratory pressure WBC 9.4 hemoglobin 13.0 and platelets 204 Sodium 139 potassium 4.0 chloride 105 bicarb 28 BUN 19 and creatinine 0.55 and blood sugar is 188 LDL 55. Neurology is on board. Cardiology was consulted due to possible embolic etiology and JAI study. 10/28/2021 Patient is awake alert and oriented. No complaints of chest pain. Patient is currently on high flow oxygen at 8 to 10 L via nasal cannula. Tolerating dysphagia level 1 diet. Patient has been afebrile. No cough or sputum production. No complaints of nausea or vomiting. No headache or dizziness or li ghtheadedness. Urine culture showed normal sana. Blood cultures have been negative so far. Laboratory data reviewed. Patient is being continued on aspirin and Plavix and statins. Cardiology is pl anning for JAI on Saturday or as an outpatient. 10/29/2021 Patient is currently resting in bed. Awake alert oriented x3. No complaints of chest pain or shortness of breath. No nausea vomiting abdominal pain or diarrhea. Patient is scheduled for JAI on Saturday. Urine culture showed normal sana. Laboratory showed WBC 8.3 hemoglobin 13.9 and platelets 229 sodium 141 potassium 3.7, bicarb is 32 BUN 9 and creatinine 0.52 blood sugar 105 patient is being continued on aspirin and Plavix and antibiotics ceftriaxone. Cardiology and neurology is on board. Patient is currently requiring oxygen at 8 L via nasal cannula. Repeat chest x-ray showed no acute cardiopulmonary disease. 10/30/2021 Patient is seen and evaluated and follow-up this morning currently sitting up in the chair with family at the bedside. Cardiology has been consulted and will have possible JAI tomorrow with neurological workup in process. Patient also being treated for an acute urinary tract infection and is maintained on ceftriaxone. Patient currently maintained on 8 L high flow and weaning as tolerated. Neurology concern for possible embolic source of this acute CVA. Per daughter at the bedside patient does not wear any oxygen in the outpatient setting. Urine cultures have been negative. She denies any chest pain or worsening shortness of breath. Patient is afebrile and is tolerating diet with no reports of nausea or vomiting noted. 10/31/2021 Patient is seen in follow up today and undergoing neurological work up and cardio following as well. Patient is scheduled for JIA on 11/01 and will continue to closely monitor. Patient is maintained on aspirin, plavix, and statin and will continue. Patient continues to be short of breath and cxr ordered. Patient was on ceftriaxone and will add zosyn as patient is probable for aspiration pneumonia. Patient denies chest pain and is afebrile. Patient with weakness and recommend PT/OT to work with daily. Patient continues with 6L via NC and does not normally wear oxygen in the outpatient setting. Daughter at the bedside Active Medications Acetaminophen (Acetaminophen Tab 325 Mg Tab) 650 mg PO Q6HR PRN PRN Reason: Mild Pain or Fever > 100.5 Hydrocodone Bitart/Acetaminophen (Hydrocodone/Apap 5-325mg 1 Each Tab) 1 each PO DAILY PRN PRN Reason: Pain Aspirin (Aspirin 81 Mg) 81 mg PO DAILY [facility] Last Admin: 10/31/21 08:03 Dose: 81 mg Atorvastatin Calcium (Atorvastatin 80 Mg Tab) 80 mg PO HS [facility] Last Admin: 10/30/21 20:58 Dose: 80 mg Clopidogrel Bisulfate (Clopidogrel 75 Mg Tab) 75 mg PO DAILY [facility] Last Admin: 10/31/21 08:03 Dose: 75 mg Glipizide (Glipizide 10 Mg Tab) 10 mg PO AC-BID [facility] Last Admin: 10/31/21 17:06 Dose: 10 mg Heparin Sodium (Porcine) (Heparin Sodium,Porcine/Pf 5,000 Unit/0.5 Ml Syringe) 5,000 unit SQ Q8HR [facility] Last Admin: 10/31/21 17:06 Dose: 5,000 unit Ceftriaxone Sodium 1 gm/ (Sodium Chloride) 50 mls @ 100 mls/hr IVPB Q24HR [facility]; Protocol Last Admin: 10/31/21 08:03 Dose: 100 mls/hr Piperacillin Sod/Tazobactam (Sod 3.375 gm/ Sodium Chloride) 100 mls @ 25 mls/hr IVPB Q8HR [facility]; Protocol Last Admin: 10/31/21 17:05 Dose: 25 mls/hr Insulin Aspart (Insulin Aspart (Novolog) 100 Unit/Ml Vial) 0 unit SQ ACHS [facility]; Protocol Last Admin: 10/31/21 17:06 Dose: 2 unit Lactulose (Lactulose 20 Gm/30 Ml Cup) 30 gm PO TID PRN PRN Reason: Constipation Last Admin: 10/31/21 17:05 Dose: 30 gm Multivitamins (Multivitamins, Thera 1 Each Tab) 1 each PO DAILY [facility] Last Admin: 10/31/21 08:03 Dose: 1 each Naloxone HCl (Naloxone 0.4 Mg/Ml 1 Ml Vial) 0.2 mg IV Q2M PRN PRN Reason: Opioid Reversal Ondansetron HCl (Ondansetron 4 Mg Tab) 4 mg PO Q8HR PRN PRN Reason: Nausea Venlafaxine HCl (Venlafaxine Hcl Er 150 Mg Cap) 150 mg PO HS [facility] Last Admin: 10/30/21 20:59 Dose: 150 mg PHYSICAL EXAMINATION: Patient is sitting up in the chair, awake alert and oriented 2. currently on 6L via NC HEENT: Normocephalic. Neck is supple. Pupils reactive. Nostrils clear. Oral cavity is moist. Neck reveals no JVD, carotid bruits, or thyromegaly. CHEST EXAMINATION: Trachea is central. Symmetrical expansion. Bibasilar diminished sounds with some scattered rhonchi noted.. CARDIAC: S1, S2 are muffled ABDOMEN: Soft. Bowel sounds normal. No organomegaly. No abdominal bruits. Extremities: reveal no edema. No clubbing or cyanosis Neurologically awake, alert, oriented x2. Patient does have left-sided weakness. Skin: No rash or skin lesions. Psychiatric: Cooperative. Non-suicidal Musculoskeletal: No joint swelling or deformity. Assessment: Acute/subacute CVA with right facial weakness. Possible embolic disease as per MRI. Plan for JAI on 11/01/2021 Altered mental status and metabolic encephalopathy. improved. Acute hypoxic respiratory failure requiring high flow oxygen. possibly secondary to aspiration pneumonia Acute urinary tract infection, present on admission Diabetes type 2 Hyperlipidemia History of TIA History of MRSA Gait dysfunction Diabetic retinopathy neuropathy Obstructive sleep apnea on CPAP DVT prophylaxis on heparin subcu Full code Plan: Patient is being continued aspirin and Plavix and statin. Patient has ongoing neurologic work-up done including MRI of the brain. CTA of the neck could not be done as the patient is allergic to iodine dye. Carotid doppler with some plaque with no significant stenosis Due to embolic etiology cardiology was consulted and following for JAI and event monitor. JAI to be done on in am 11/01/21 Patient does have aspiration with thin liquids and continue with honey thickened liquids and solid diet. Speech therapy following recommend to continue strict aspiration precautions. Recommend to titrate down O2 as tolerated, currently maintained on 6 L high flow. Recommend to initiate IV abx in the form of Zosyn. patient does not normally wear any oxygen in the outpatient setting, probable aspiration pneumonia GI and DVT prophylaxis. PT/OT to follow as patient may likely need ECF for continued weakness, daughter at the bedside Due to multiple complex medical issues, prognosis is guarded. Will await JAI. The impression and plan of care has been dictated by Cynthia Anaya, Nurse Practitioner as directed. Dr. Milan MD I have performed a history and examination and MDM of this patient, discussed the same with the dictator, and agree with the dictator's assessment and plan as written ,documented as a scribe. Based on total visit time, I have performed more than 50% of the visit. Objective - Vital Signs Vital signs: Vital Signs Temp 97.7 F 10/31/21 07:50 Pulse 86 10/31/21 07:50 Resp 18 10/31/21 07:50 BP 129/80 10/31/21 07:50 Pulse Ox 94 L 10/31/21 08:04 FiO2 Intake & Output 10/30/21 10/31/21 10/31/21 18:59 06:59 18:59 Intake Total 246 10 Output Total 50 Balance 246 -50 10 Intake: IV 10 10 Invasive Line 2 10 10 Oral 236 Output: Urine 50 Other: Voiding Method Diaper Diaper Diaper External Catheter # Voids 2 - Labs CBC & Chem 7: 10/29/21 07:35 10/30/21 07:00 Labs: Abnormal Lab Results - Last 24 Hours (Table) 10/30/21 10/30/2110/30/22 Range/Units 11:55 16:37 20:33 POC Glucose (mg/dL) 222 H 128 H 200 H (75-99) mg/dL 10/31/21 Range/Units 06:07 POC Glucose (mg/dL) 135 H (75-99) mg/dL Microbiology - Last 24 Hours (Table) 10/26/21 20:22 Blood Culture - Preliminary Blood No Growth after 96 hours
[2021-10-31 20:18] LABS: Glucose,Whole Blood 145 mg/dL (75-99)
[2021-10-31] MEDS: ATORVASTATIN 80 MG TAB PO SCH (20:54)
[2021-10-31] MEDS: VENLAFAXINE HCL ER 150 MG CAP PO SCH (20:54)
[2021-11-01] MEDS: glipiZIDE 10 MG TAB PO SCH ×2 (06:02→17:11)
[2021-11-01 06:03] LABS: Glucose,Whole Blood 106 mg/dL (75-99)
[2021-11-01] MEDS: INSULIN ASPART (NovoLOG) 100 UNIT/ML VIAL SQ SCH ×4 (06:03→20:28)
[2021-11-01] MEDS: ASPIRIN 81 MG PO SCH (08:16)
[2021-11-01] MEDS: HEPARIN SODIUM,PORCINE/PF 5,000 UNIT/0.5 ML SYRINGE SQ SCH ×3 (08:16→23:57)
[2021-11-01] MEDS: MULTIVITAMINS, THERA 1 EACH TAB PO SCH (08:16)
[2021-11-01] MEDS: CLOPIDOGREL 75 MG TAB PO SCH (08:16)
[2021-11-01] MEDS: PIPERACILLIN-TAZOBACTAM 3.375 GM in SODIUM CHLORIDE 0.9% 100 ML IVPB SCH ×3 (08:16→23:56)
[2021-11-01] MEDS ORDERED: fentaNYL (PF) 50 MCG/ML 2 ML AMP ONE (10:06)
[2021-11-01] MEDS ORDERED: IV FLUID CONTINUATION 900 ML IV ONE ×2 (10:24)
[2021-11-01] MEDS: BENZOCAINE SPRAY 1 CAN TOPICAL ONE ×2 (10:25→10:28)
[2021-11-01] MEDS ORDERED: MIDAZOLAM 2 MG/2 ML VIAL IV ONE ×2 (10:33→10:35)
[2021-11-01] MEDS: fentaNYL (PF) 50 MCG/ML 2 ML AMP IV ONE ×2 (10:33→10:40)
[2021-11-01 11:47] LABS: Glucose,Whole Blood 137 mg/dL (75-99)
[2021-11-01 16:55] LABS: Glucose,Whole Blood 156 mg/dL (75-99)
[2021-11-01 20:12] LABS: Glucose,Whole Blood 237 mg/dL (75-99)
[2021-11-01] MEDS: ATORVASTATIN 80 MG TAB PO SCH (20:28)
[2021-11-01] MEDS: VENLAFAXINE HCL ER 150 MG CAP PO SCH (20:28)
--- NOTE | 2021-11-02 01:16 | P.PN ---
Subjective Progress Note Date: 11/01/21 Patient is a 61-year-old female who was admitted to hospital for altered mental status and will also be treated for acute urinary tract infection. 10/27/2021. Patient is awake alert oriented. No complaints of chest pain or shortness of breath. Patient had MRI of the brain today. MRI of the brain showed small foci of subacute ischemia considered embolic disease. There is underlying chronic small vessel ischemic change suspected. EEG is abnormal. Background slowing is suggestive of mild encephalopathy of unknown etiology. 2D echocardiogram normal left ventricular systolic function. Carotid duplex showed nondiagnostic study as patient is unable to be finished bilateral complete carotid ultrasound evaluation. Patient underwent swallow study. Showed glen aspiration with laryngeal penetration noted on thin liquids. Vallecular residuals are also present. No aspiration noted on solid or honey thick consistency. Laboratory pressure WBC 9.4 hemoglobin 13.0 and platelets 204 Sodium 139 potassium 4.0 chloride 105 bicarb 28 BUN 19 and creatinine 0.55 and blood sugar is 188 LDL 55. Neurology is on board. Cardiology was consulted due to possible embolic etiology and JAI study. 10/28/2021 Patient is awake alert and oriented. No complaints of chest pain. Patient is currently on high flow oxygen at 8 to 10 L via nasal cannula. Tolerating dysphagia level 1 diet. Patient has been afebrile. No cough or sputum production. No complaints of nausea or vomiting. No headache or dizziness or li ghtheadedness. Urine culture showed normal sana. Blood cultures have been negative so far. Laboratory data reviewed. Patient is being continued on aspirin and Plavix and statins. Cardiology is pl anning for JAI on Saturday or as an outpatient. 10/29/2021 Patient is currently resting in bed. Awake alert oriented x3. No complaints of chest pain or shortness of breath. No nausea vomiting abdominal pain or diarrhea. Patient is scheduled for JAI on Saturday. Urine culture showed normal sana. Laboratory showed WBC 8.3 hemoglobin 13.9 and platelets 229 sodium 141 potassium 3.7, bicarb is 32 BUN 9 and creatinine 0.52 blood sugar 105 patient is being continued on aspirin and Plavix and antibiotics ceftriaxone. Cardiology and neurology is on board. Patient is currently requiring oxygen at 8 L via nasal cannula. Repeat chest x-ray showed no acute cardiopulmonary disease. 10/30/2021 Patient is seen and evaluated and follow-up this morning currently sitting up in the chair with family at the bedside. Cardiology has been consulted and will have possible JAI tomorrow with neurological workup in process. Patient also being treated for an acute urinary tract infection and is maintained on ceftriaxone. Patient currently maintained on 8 L high flow and weaning as tolerated. Neurology concern for possible embolic source of this acute CVA. Per daughter at the bedside patient does not wear any oxygen in the outpatient setting. Urine cultures have been negative. She denies any chest pain or worsening shortness of breath. Patient is afebrile and is tolerating diet with no reports of nausea or vomiting noted. 10/31/2021 Patient is seen in follow up today and undergoing neurological work up and cardio following as well. Patient is scheduled for JAI on 11/01 and will continue to closely monitor. Patient is maintained on aspirin, plavix, and statin and will continue. Patient continues to be short of breath and cxr ordered. Patient was on ceftriaxone and will add zosyn as patient is probable for aspiration pneumonia. Patient denies chest pain and is afebrile. Patient with weakness and recommend PT/OT to work with daily. Patient continues with 6L via NC and does not normally wear oxygen in the outpatient setting. Daughter at the bedside 11/01/2021 Patient is evaluated today and is status post JAI and cardiology and neurology following closely. Patient with ongoing neurological work-up and JAI shows PFO. Per daughter at bedside, cardiology is to review and unsure about surgical intervention yet at this time. Will await report. Patient is also continued on IV zosyn and recommend aspiration precautions. Patient reports to tolerating diet and denies nausea or vomiting. Patient is afebrile. Patient continues with shortness of breath and discussed with staffing associate about weaning FI02 as tolerated. PT/OT following. Active Medications Acetaminophen (Acetaminophen Tab 325 Mg Tab) 650 mg PO Q6HR PRN PRN Reason: Mild Pain or Fever > 100.5 Hydrocodone Bitart/Acetaminophen (Hydrocodone/Apap 5-325mg 1 Each Tab) 1 each PO DAILY PRN PRN Reason: Pain Aspirin (Aspirin 81 Mg) 81 mg PO DAILY [facility] Last Admin: 11/01/21 08:16 Dose: 81 mg Atorvastatin Calcium (Atorvastatin 80 Mg Tab) 80 mg PO HS [facility] Last Admin: 11/01/21 20:28 Dose: 80 mg Clopidogrel Bisulfate (Clopidogrel 75 Mg Tab) 75 mg PO DAILY [facility] Last Admin: 11/01/21 08:16 Dose: 75 mg Glipizide (Glipizide 10 Mg Tab) 10 mg PO AC-BID [facility] Last Admin: 11/01/21 17:11 Dose: 10 mg Heparin Sodium (Porcine) (Heparin Sodium,Porcine/Pf 5,000 Unit/0.5 Ml Syringe) 5,000 unit SQ Q8HR [facility] Last Admin: 11/01/21 23:57 Dose: 5,000 unit Piperacillin Sod/Tazobactam (Sod 3.375 gm/ Sodium Chloride) 100 mls @ 25 mls/hr IVPB Q8HR [facility]; Protocol Last Admin: 11/01/21 23:56 Dose: 25 mls/hr Insulin Aspart (Insulin Aspart (Novolog) 100 Unit/Ml Vial) 0 unit SQ ACHS [facility]; Protocol Last Admin: 11/01/21 20:28 Dose: 3 unit Lactulose (Lactulose 20 Gm/30 Ml Cup) 30 gm PO TID PRN PRN Reason: Constipation Last Admin: 10/31/21 17:05 Dose: 30 gm Multivitamins (Multivitamins, Thera 1 Each Tab) 1 each PO DAILY [facility] Last Admin: 11/01/21 08:16 Dose: 1 each Naloxone HCl (Naloxone 0.4 Mg/Ml 1 Ml Vial) 0.2 mg IV Q2M PRN PRN Reason: Opioid Reversal Ondansetron HCl (Ondansetron 4 Mg Tab) 4 mg PO Q8HR PRN PRN Reason: Nausea Venlafaxine HCl (Venlafaxine Hcl Er 150 Mg Cap) 150 mg PO HS [facility] Last Admin: 11/01/21 20:28 Dose: 150 mg PHYSICAL EXAMINATION: Patient is sitting up in the bed, awake alert and oriented 2. currently on 6L HF via NC HEENT: Normocephalic. Neck is supple. Pupils reactive. Nostrils clear. Oral cavity is moist. Neck reveals no JVD, carotid bruits, or thyromegaly. CHEST EXAMINATION: Trachea is central. Symmetrical expansion. Bibasilar dimini shed sounds with some scattered rhonchi noted.. CARDIAC: S1, S2 are muffled ABDOMEN: Soft. Bowel sounds normal. No organomegaly. No abdominal bruits. Extremities: reveal no edema. No clubbing or cyanosis Neurologically awake, alert, oriented x2. Skin: No rash or skin lesions. Psychiatric: Cooperative. Non-suicidal Musculoskeletal: No joint swelling or deformity. Assessment: Acute/subacute CVA with right facial weakness. Possible embolic disease as per MRI. JAI reveals PFO Altered mental status and metabolic encephalopathy. improved. Acute hypoxic respiratory failure requiring high flow oxygen. possibly secondary to aspiration pneumonia Acute urinary tract infection, present on admission Diabetes type 2 Hyperlipidemia History of TIA History of MRSA Gait dysfunction Diabetic retinopathy neuropathy Obstructive sleep apnea on CPAP DVT prophylaxis on heparin subcu Full code Plan: Patient is being continued aspirin and Plavix and statin. Patient has ongoing neurologic work-up done including MRI of the brain. CTA of the neck could not be done as the patient is allergic to iodine dye. Carotid doppler with some plaque with no significant stenosis Due to embolic etiology cardiology was consulted and following for JAI and event monitor. JAI shows PFO Patient does have aspiration with thin liquids and continue with honey thickened liquids and solid diet. Speech therapy following recommend to continue strict aspiration precautions. Recommend to titrate down O2 as tolerated, currently maintained on 6 L high flow. Recommend to continued IV abx in the form of Zosyn. patient does not normally wear any oxygen in the outpatient setting, probable aspiration pneumonia GI and DVT prophylaxis. PT/OT to follow as patient may likely need ECF for continued weakness, daughter at the bedside Due to multiple complex medical issues, prognosis is guarded. The impression and plan of care has been dictated by Cynthia Anaya, Nurse Practitioner as directed. Dr. Milan MD I have performed a history and examination and MDM of this patient, discussed the same with the dictator, and agree with the dictator's assessment and plan as written ,documented as a scribe. Based on total visit time, I have performed more than 50% of the visit. Objective - Vital Signs Vital signs: Vital Signs Temp 98.4 F 11/01/21 08:03 Pulse 78 11/01/21 08:03 Resp 18 11/01/21 08:03 BP 128/77 11/01/21 08:03 Pulse Ox 94 L 11/01/21 08:03 FiO2 Intake & Output 10/31/21 11/01/21 11/01/21 18:59 06:59 18:59 Intake Total 420 Balance 420 Weight 81.647 kg Intake: IV 10 Invasive Line 2 10 Intake, IV Titration 50 Amount cefTRIAXone 1 gm In 50 Sodium Chloride 0.9% 50 ml @ 100 mls/hr IVPB Q24HR [facility] Rx#:[id number] Oral 360 Other: Voiding Method Diaper Diaper Diaper # Voids 1 3 1 # Bowel Movements 1 - Labs CBC & Chem 7: 10/29/21 07:35 10/30/21 07:00 Labs: Abnormal Lab Results - Last 24 Hours (Table) 10/31/21 10/31/21 10/31/21 Range/Units 11:56 16:28 20:17 POC Glucose (mg/dL) 167 H 174 H 145 H (75-99) mg/dL 11/01/21 Range/Units 06:01 POC Glucose (mg/dL) 106 H (75-99) mg/dL Microbiology - Last 24 Hours (Table) 10/26/21 20:22 Blood Culture - Preliminary Blood No Growth after 120 hours
[2021-11-02 06:06] LABS: Glucose,Whole Blood 144 mg/dL (75-99)
[2021-11-02] MEDS: glipiZIDE 10 MG TAB PO SCH ×2 (06:28→17:15)
[2021-11-02] MEDS: INSULIN ASPART (NovoLOG) 100 UNIT/ML VIAL SQ SCH ×4 (06:29→21:11)
[2021-11-02] MEDS: MULTIVITAMINS, THERA 1 EACH TAB PO SCH (08:50)
[2021-11-02] MEDS: CLOPIDOGREL 75 MG TAB PO SCH (08:50)
[2021-11-02] MEDS: HEPARIN SODIUM,PORCINE/PF 5,000 UNIT/0.5 ML SYRINGE SQ SCH ×2 (08:50→17:15)
[2021-11-02] MEDS: ASPIRIN 81 MG PO SCH (08:50)
[2021-11-02] MEDS: PIPERACILLIN-TAZOBACTAM 3.375 GM in SODIUM CHLORIDE 0.9% 100 ML IVPB SCH ×2 (08:51→17:15)
[2021-11-02 08:54] LABS: Basophils % (A) 0 %; Eosinophils # (A) 0.5 k/uL (0-0.7); Eosinophils % (A) 6 %; HCT 45.9 % (34.0-46.0); HGB 14.6 gm/dL (11.4-16.0); Lymphocytes # (A) 1.7 k/uL (1.0-4.8); Lymphocytes % (A) 21 %; MCH 27.8 pg (25.0-35.0); MCHC 31.8 g/dL (31.0-37.0); MCV 87.6 fL (80.0-100.0); Mean Platelet Volume 6.9; Monocytes # (A) 0.4 k/uL (0-1.0); Monocytes % (A) 5 %; Neutrophils # (A) 5.3 k/uL (1.3-7.7); Neutrophils % (A) 65 %; Platelet Count 260 k/uL (150-450); RBC 5.24 m/uL (3.80-5.40); RDW 13.3 % (11.5-15.5); WBC 8.1 k/uL (3.8-10.6)
--- NOTE | 2021-11-02 09:03 | P.TEE ---
Description of Procedure(s): Procedure performed: Transesophageal Echocardiogram with color flow doppler, pulsed wave doppler and continuous wave doppler, moderate conscious sedation Moderate conscious sedation: Moderate conscious sedation was supplied with direct supervision of myself using Versed and Fentanyl. Complications: none Indications: Cryptogenicl stroke Date of procedure: 11/01/2021 PROCEDURE: After the risks, benefits and alternatives of the above mentioned procedure was explained in detail with the patient, informed consent was obtained. Patient was brought to the lab in a fasting state. Patient was given IV Versed and Fentanyl for sedation. The throat was sprayed with Hurricane to anesthetize the throat. A lubricated Omni probe was then introduced into the esophagus and stomach and multiple views were obtained. 2D echo with color flow doppler, pulsed wave doppler and continuous wave doppler was utilized. Agitated saline bubbles were injected to assess for any intra-atrial shunt. The probe was then removed. Patient tolerated the procedure well. Patient was transferred to the post procedure area in stable and satisfactory condition. FINDINGS: 1. The aortic valve is tricuspid and functioning normally. No aortic stenosis, no aortic regurgitation. 2. The mitral valve appears be normal and mild mitral regurgitation. 3. Tricuspid valve receiving normal, trace tricuspid regurgitation. 4. The interatrial septum is intact. There is a small PFO with [id number] bubble shunt. 5. Left atrial appendage is free of clot. 6. Left ventricular size and function is normal with left ventricular ejection fraction 60-65%
--- NOTE | 2021-11-02 09:08 | P.PN ---
Subjective Progress Note Date: 11/01/21 11/01/2021: Patient is laying comfortably in the bed. Offers no complaints. Family members not present today. 10/31/2021: Patient laying comfortably in the bed. Patient's family members were present. Patient denies headache. Offers no complaints. Per family, patient has improved, but not back to baseline. 10/29/2021: Patient was initially seen by Dr. Israel Mcguire. Please refer to his note for detail. Patient is a 61-year-old female with recent multiple small strokes over the left hemisphere. Dr. Mcguire had consulted cardiology for JAI and event monitor. Currently on aspirin and Plavix. At home patient was only taking aspirin 81 mg daily. MRI Brain: Is reported as small foci of subacute ischemia, consider embolic disease. There is underlying chronic small vessel ischemic change suspected, cortical atrophy similar to prior exam. The subacute ischemia is over the left lateral ventricle over the posterior horn periventricular region, left cerebellar. I personally reviewed the MRI and agree the patient has multiple foci over the left hemisphere left cerebellar, as mentioned above. I did not appreciate left thalamic infarct as noted by Dr. Mcguire. Routine EEG is abnormal. The background slowing is suggestive of mild encephalopathy of unknown etiology. Otherwise, there is no focal slowing, epileptiform discharges or seizure on the EEG. 2Decho: Continue difficult study for interpretation. Normal left ventricular dimension and systolic function. Normal left atrial size Carotid duplex: Nondiagnostic study as patient was unable to finished bilateral complet carotid ultrasound evaluation. Objective - Vital Signs Vital signs: Vital Signs Temp 98.2 F 11/01/21 15:34 Pulse 79 11/01/21 15:34 Resp 18 11/01/21 11:35 BP 115/72 11/01/21 15:34 Pulse Ox 94 L 11/01/21 15:34 FiO2 Intake & Output 10/31/21 11/01/21 11/01/21 18:59 06:59 18:59 Intake Total 420 680 Balance 420 680 Weight 81.647 kg Intake: IV 10 400 .9@25 300 Invasive Line 2 10 Intake, IV Titration 50 100 Amount Piperacillin-Tazobactam 3 100 .375 gm In Sodium Chloride 0.9% 100 ml @ 25 mls/hr IVPB Q8HR [facility] Rx# :[id number] cefTRIAXone 1 gm In 50 Sodium Chloride 0.9% 50 ml @ 100 mls/hr IVPB Q24HR [facility] Rx#:[id number] Oral 360 180 Other: Voiding Method Diaper Diaper Diaper # Voids 1 3 1 # Bowel Movements 1 - Exam GENERAL: The patient is lying in bed and is not in acute distress. NEUROLOGICAL: Higher mental function: The patient is awake and alert. Patient states it's December and the year is 2021. She knows that she is in a hospital but does not know the name. She does know that she is in [facility]. Patient is following simple commands. Her speech is mildly slow and dysarthric. No aphasia. Patient can name and repeat. Cranial nerves: The pupils are round, equal and reactive to light. No facial droop. Visual tobias are full with no neglect. Sticking tongue out and move sided to side without difficulty. Motor: The strength is normal in arms and legs distally and proximally. Cerebellum: Very slight ataxia for [id number] on the right, but not on the left. Sensation: Equal bilaterally, no neglect. Reflexes (right/left):2+ throughout. Gait not checked. - Labs CBC & Chem 7: 11/02/21 08:27 10/30/21 07:00 Labs: Abnormal Lab Results - Last 24 Hours (Table) 10/31/21 10/31/21 11/01/21 Range/Units 16:28 20:17 06:01 POC Glucose (mg/dL) 174 H 145 H 106 H (75-99) mg/dL 11/01/21 Range/Units 11:45 POC Glucose (mg/dL) 137 H (75-99) mg/dL Microbiology - Last 24 Hours (Table) 10/26/21 20:22 Blood Culture - Preliminary Blood No Growth after 120 hours Assessment and Plan Assessment: Acute CVA: Multiple foci (x2), over the left hemipshere in the posterior per iventricular region and tiny area in the left cerebellum. Seems emoblic. (presented with Right transient facial droop and continues to be confused). No IV tpa since outside window Encephalopathy of unknown etiology TIA about 10 years ago diabetes mellitus hyperlipidemia obstructive sleep apnea on CPAP diabetic retinopathy diabetic neuropathy Plan: JAI performed today. Aortic valve is tricuspid and functionally normal. No aortic stenosis, no aortic regurgitation. Mitral valve appears to be normal and mild mitral regurgitation. Interatrial septum was intact. There is a small PFO with right to left bubble shunt. Left atrial appendage is free of clot. Left ventricular size and function is normal with left ventricular ejection fraction 60-65%. Cardiology on board. Would defer to cardiology if PFO closure should b e considered. Patient to undergo event monitoring placement also. MRI Brain: Is reported as small foci of subacute ischemia, consider embolic disease. There is underlying chronic small vessel ischemic change suspected, cortical atrophy similar to prior exam. The subacute ischemia is over the left lateral ventricle over the posterior horn periventricular region, left cerebellar. I personally reviewed the MRI and agree the patient has multiple foci over the left hemisphere left cerebellar as mentioned. Continue dual antiplatelet medication with Plavix 75 mg and aspirin 81 mg daily. After 21 days, may stop aspirin and maintain on Plavix and 5 mg daily. (Patient was taking aspirin prior to arrival to the hospital) Telemetry monitoring showing sinus rhythm, no other arrhythmia. Repeat carotid Doppler 10/31/2021 revealed no hemodynamically significant stenosis in either ICA. Antegrade flow in both vertebral arteries. Lipid panel with cholesterol 118, LDL 55, HDL 40 and triglycerides were 11. Continue Lipitor 80 mg daily. Hemoglobin A1c 6.8 on 09/15/2021. PT, OT and [employer]ONER TRANSPORT TECHNICIAN are consulted For DVT prophylaxis: On subq heparin 5000U every 12 hours. We'll defer the rest of the medical management to primary team
[2021-11-02 09:20] LABS: African American GFR (CKD) >90 (>60 ml/min/1.73 sqM); Anion Gap 3 mmol/L; Blood Urea Nitrogen 15 mg/dL (7-17); Calcium 9.3 mg/dL (8.4-10.2); Carbon Dioxide 40 mmol/L (22-30); Chloride 100 mmol/L (98-107); Glucose 118 mg/dL (74-99); Non-African American GFR(CKD) >90 (>60 ml/min/1.73 sqM); Potassium 5.1 mmol/L (3.5-5.1); Sodium 143 mmol/L (137-145)
--- NOTE | 2021-11-02 11:38 | P.PN ---
Subjective Patient is a pleasant 61-year-old female with history of diabetes mellitus type 2, hyperlipidemia, obstructive sleep apnea, prior TIA approximately 10 years ago with some vision changes. She does not follow with a shuttle filler. We have been asked to see in consultation for JAI. Patient presented to Hospital 10/26 secondary to altered mental status, right facial droop and confusion. She underwent workup with MRI confirming left stroke concerning for embolic etiology. Transthoracic echo 10/26/2021 showed normal EF without significant valvular disease. Carotid Doppler was unable to be completed secondary to patient being noncompliant with exam. EKG shows normal sinus rhythm, left axis deviation, nonspecific T-wave inversions laterally. Troponin noted to be normal at 0.012. Prior tobacco abuse however quit. 11/02/2021 Patient underwent JAI with Dr. Owens on 11/01 which revealed a small PFO with [id number] bubble shunt, interatrial septum is intact, aortic valve is tricuspid and functioning normally. No aortic stenosis, no aortic regurgitation, mitral valve appears be normal and mild mitral regurgitation .Tricuspid valve receiving normal, trace tricuspid regurgitation. Left atrial appendage is free of clot. Left ventricular size and function is normal with left ventricular ejection fraction 60-65% Patient seen and examined at bedside, no acute distress. Vital signs are stable. Patient is maintaining sinus mechanism HR 60s-70s, no arrhythmia noted. Currently maintained on aspirin 81mg daily, atorvastatin 80 mg nightly, Plavix 75 mg daily PHYSICAL EXAMINATION Vital signs reviewed. CONSTITUTIONAL: No apparent distress, confused. HEENT: Head is normocephalic. Neck Supple. No JVD. CHEST EXAMINATION: Lungs are clear to auscultation. No chest wall tenderness is noted on palpation or with deep breathing. HEART EXAMINATION: Regular rate and rhythm. S1, S2 heard. No murmurs, gallops or rub. ABDOMEN: Soft, nontender. Positive bowel sounds. EXTREMITIES: 2+ peripheral pulses, no lower extremity edema and no calf tenderness. NEUROLOGIC EXAMINATION: Patient is awake, alert confused ASSESSMENT Acute left hemispheric stroke concerning for embolic etiology Diabetes mellitus type 2 Hyperlipidemia Prior history of TIA Small PFO with khqhc-hq-mpug bubble shunt PLAN Continue aspirin, statin and Plavix Patient is maintaining sinus mechanism HR 60s-70s, no arrhythmia noted on telemetry. 30 day event monitor ordered, please have placed prior to discharge Follow up outpatient with Dr. Owens in 2 weeks, discussion of PFO closure will be discussed at that time We will follow the patient as needed. Please re-consult if needed. Nurse practitioner note has been reviewed by physician. Signing provider agrees with the documented findings, assessment, and plan of care. Objective - Vital Signs Vital signs: Vital Signs Temp 97.6 F 11/02/21 07:56 Pulse 78 11/02/21 07:56 Resp 18 11/02/21 07:56 BP 148/85 11/02/21 07:56 Pulse Ox 96 11/02/21 07:56 FiO2 Intake & Output 11/01/21 11/02/21 11/02/21 18:59 06:59 18:59 Intake Total 680 10 Output Total 850 Balance 680 -840 Intake: IV 400 10 .9@25 300 Invasive Line 3 10 Intake, IV Titration 100 Amount Piperacillin-Tazobactam 3 100 .375 gm In Sodium Chloride 0.9% 100 ml @ 25 mls/hr IVPB Q8HR [facility] Rx# :[id number] Oral 180 Output: Urine 850 Other: Voiding Method Diaper Diaper External Catheter # Voids 1 1 # Bowel Movements 1 - Labs CBC & Chem 7: 11/02/21 08:27 11/02/21 08:27 Labs: Abnormal Lab Results - Last 24 Hours (Table) 11/01/21 11/01/21 11/01/21 Range/Units 11:45 16:53 20:10 POC Glucose (mg/dL) 137 H 156 H 237 H (75-99) mg/dL 11/02/21 Range/Units 06:04 POC Glucose (mg/dL) 144 H (75-99) mg/dL Microbiology - Last 24 Hours (Table) 10/26/21 20:22 Blood Culture - Final Blood No Growth after 144 hours
[2021-11-02 11:42] LABS: Glucose,Whole Blood 183 mg/dL (75-99)
[2021-11-02 16:11] LABS: Glucose,Whole Blood 190 mg/dL (75-99)
[2021-11-02 20:07] LABS: Glucose,Whole Blood 171 mg/dL (75-99)
[2021-11-02] MEDS: VENLAFAXINE HCL ER 150 MG CAP PO SCH (21:11)
[2021-11-02] MEDS: ATORVASTATIN 80 MG TAB PO SCH (21:11)
--- NOTE | 2021-11-02 23:26 | P.PN ---
Subjective Progress Note Date: 11/02/21 Patient is a 61-year-old female who was admitted to hospital for altered mental status and will also be treated for acute urinary tract infection. 10/27/2021. Patient is awake alert oriented. No complaints of chest pain or shortness of breath. Patient had MRI of the brain today. MRI of the brain showed small foci of subacute ischemia considered embolic disease. There is underlying chronic small vessel ischemic change suspected. EEG is abnormal. Background slowing is suggestive of mild encephalopathy of unknown etiology. 2D echocardiogram normal left ventricular systolic function. Carotid duplex showed nondiagnostic study as patient is unable to be finished bilateral complete carotid ultrasound evaluation. Patient underwent swallow study. Showed glen aspiration with laryngeal penetration noted on thin liquids. Vallecular residuals are also present. No aspiration noted on solid or honey thick consistency. Laboratory pressure WBC 9.4 hemoglobin 13.0 and platelets 204 Sodium 139 potassium 4.0 chloride 105 bicarb 28 BUN 19 and creatinine 0.55 and blood sugar is 188 LDL 55. Neurology is on board. Cardiology was consulted due to possible embolic etiology and JAI study. 10/28/2021 Patient is awake alert and oriented. No complaints of chest pain. Patient is currently on high flow oxygen at 8 to 10 L via nasal cannula. Tolerating dysphagia level 1 diet. Patient has been afebrile. No cough or sputum production. No complaints of nausea or vomiting. No headache or dizziness or li ghtheadedness. Urine culture showed normal sana. Blood cultures have been negative so far. Laboratory data reviewed. Patient is being continued on aspirin and Plavix and statins. Cardiology is pl anning for JAI on Saturday or as an outpatient. 10/29/2021 Patient is currently resting in bed. Awake alert oriented x3. No complaints of chest pain or shortness of breath. No nausea vomiting abdominal pain or diarrhea. Patient is scheduled for JAI on Saturday. Urine culture showed normal sana. Laboratory showed WBC 8.3 hemoglobin 13.9 and platelets 229 sodium 141 potassium 3.7, bicarb is 32 BUN 9 and creatinine 0.52 blood sugar 105 patient is being continued on aspirin and Plavix and antibiotics ceftriaxone. Cardiology and neurology is on board. Patient is currently requiring oxygen at 8 L via nasal cannula. Repeat chest x-ray showed no acute cardiopulmonary disease. 10/30/2021 Patient is seen and evaluated and follow-up this morning currently sitting up in the chair with family at the bedside. Cardiology has been consulted and will have possible JAI tomorrow with neurological workup in process. Patient also being treated for an acute urinary tract infection and is maintained on ceftriaxone. Patient currently maintained on 8 L high flow and weaning as tolerated. Neurology concern for possible embolic source of this acute CVA. Per daughter at the bedside patient does not wear any oxygen in the outpatient setting. Urine cultures have been negative. She denies any chest pain or worsening shortness of breath. Patient is afebrile and is tolerating diet with no reports of nausea or vomiting noted. 10/31/2021 Patient is seen in follow up today and undergoing neurological work up and cardio following as well. Patient is scheduled for JAI on 11/01 and will continue to closely monitor. Patient is maintained on aspirin, plavix, and statin and will continue. Patient continues to be short of breath and cxr ordered. Patient was on ceftriaxone and will add zosyn as patient is probable for aspiration pneumonia. Patient denies chest pain and is afebrile. Patient with weakness and recommend PT/OT to work with daily. Patient continues with 6L via NC and does not normally wear oxygen in the outpatient setting. Daughter at the bedside 11/01/2021 Patient is evaluated today and is status post JAI and cardiology and neurology following closely. Patient with ongoing neurological work-up and JAI shows PFO. Per daughter at bedside, cardiology is to review and unsure about surgical intervention yet at this time. Will await report. Patient is also continued on IV zosyn and recommend aspiration precautions. Patient reports to tolerating diet and denies nausea or vomiting. Patient is afebrile. Patient continues with shortness of breath and discussed with wait staff about weaning FI02 as tolerated. PT/OT following. 11/02/2021 Patient is seen in follow up today and being followed by neurology and cardiology. Patient is status post JAI showing a small right to left shunt pfo and per cardiology will be closely monitored and discussed about any surgical intervention at follow up appointment in [address] Owens. Patient to also follow up with neurology in the outpatient setting. Patient is maintained on IV zosyn and will continue and transition to oral to complete the course. Patient is down to 4L via NC. Patient is afebrile and denies chest pain or worse otoniel shortness of breath. Ecf being planned and will require insurance auth. Active Medications Acetaminophen (Acetaminophen Tab 325 Mg Tab) 650 mg PO Q6HR PRN PRN Reason: Mild Pain or Fever > 100.5 Hydrocodone Bitart/Acetaminophen (Hydrocodone/Apap 5-325mg 1 Each Tab) 1 each PO DAILY PRN PRN Reason: Pain Aspirin (Aspirin 81 Mg) 81 mg PO DAILY [facility] Last Admin: 11/02/21 08:50 Dose: 81 mg Atorvastatin Calcium (Atorvastatin 80 Mg Tab) 80 mg PO HS [facility] Last Admin: 11/02/21 21:11 Dose: 80 mg Clopidogrel Bisulfate (Clopidogrel 75 Mg Tab) 75 mg PO DAILY [facility] Last Admin: 11/02/21 08:50 Dose: 75 mg Glipizide (Glipizide 10 Mg Tab) 10 mg PO AC-BID [facility] Last Admin: 11/02/21 17:15 Dose: 10 mg Heparin Sodium (Porcine) (Heparin Sodium,Porcine/Pf 5,000 Unit/0.5 Ml Syringe) 5,000 unit SQ Q8HR [facility] Last Admin: 11/02/21 17:15 Dose: 5,000 unit Piperacillin Sod/Tazobactam (Sod 3.375 gm/ Sodium Chloride) 100 mls @ 25 mls/hr IVPB Q8HR [facility]; Protocol Last Admin: 11/02/21 17:15 Dose: 25 mls/hr Insulin Aspart (Insulin Aspart (Novolog) 100 Unit/Ml Vial) 0 unit SQ ACHS [facility]; Protocol Last Admin: 11/02/21 21:11 Dose: 2 unit Lactulose (Lactulose 20 Gm/30 Ml Cup) 30 gm PO TID PRN PRN Reason: Constipation Last Admin: 10/31/21 17:05 Dose: 30 gm Multivitamins (Multivitamins, Thera 1 Each Tab) 1 each PO DAILY [facility] Last Admin: 11/02/21 08:50 Dose: 1 each Naloxone HCl (Naloxone 0.4 Mg/Ml 1 Ml Vial) 0.2 mg IV Q2M PRN PRN Reason: Opioid Reversal Ondansetron HCl (Ondansetron 4 Mg Tab) 4 mg PO Q8HR PRN PRN Reason: Nausea Venlafaxine HCl (Venlafaxine Hcl Er 150 Mg Cap) 150 mg PO HS [facility] Last Admin: 11/02/21 21:11 Dose: 150 mg PHYSICAL EXAMINATION: Patient is sitting up in the bed, awake alert and oriented 2. currently on 4L via NC HEENT: Normocephalic. Neck is supple. Pupils reactive. Nostrils clear. Oral cavity is moist. Neck reveals no JVD, carotid bruits, or thyromegaly. CHEST EXAMINATION: Trachea is central. Symmetrical expansion. Bibasilar diminished sounds with some scattered rhonchi noted.. CARDIAC: S1, S2 are muffled ABDOMEN: Soft. Bowel sounds normal. No organomegaly. No abdominal bruits. Extremities: reveal no edema. No clubbing or cyanosis Neurologically awake, alert, oriented x2. Skin: No rash or skin lesions. Psychiatric: Cooperative. Non-suicidal Musculoskeletal: No joint swelling or deformity. Assessment: Acute/subacute CVA with right facial weakness. Possible embolic disease as per MRI. JAI reveals PFO small right to left shunt Altered mental status and metabolic encephalopathy. improved. Acute hypoxic respiratory failure requiring high flow oxygen. possibly secondary to aspiration pneumonia Acute urinary tract infection, present on admission Diabetes type 2 Hyperlipidemia History of TIA History of MRSA Gait dysfunction Diabetic retinopathy neuropathy Obstructive sleep apnea on CPAP DVT prophylaxis on heparin subcu Full code Plan: Patient is being continued aspirin and Plavix and statin. Patient has undergone full neurologic work-up done including MRI of the brain. CTA of the neck could not be done as the patient is allergic to iodine dye. Carotid doppler with some plaque with no significant stenosis Due to embolic etiology cardiology was consulted and following for JAI and event monitor. JAI shows PFO, no plan for immediate intervention and patient will have event monitor placed prior to discharge and follow with Dr. Owens in the office in two weeks to discuss options. Patient does have aspiration with thin liquids and continue with honey thickened liquids and solid diet. Speech therapy following recommend to continue strict aspiration precautions. Recommend to titrate down O2 as tolerated, currently maintained on 4 L via NC. Recommend to continued IV abx in the form of Zosyn. patient does not normally wear any oxygen in the outpatient setting, probable aspiration pneumonia GI and DVT prophylaxis. PT/OT to follow as patient will need ECF for continued weakness, daughter at the bedside, [employer] and requires insurance auth. Due to multiple complex medical issues, prognosis is guarded. The impression and plan of care has been dictated by Cynthia Anaya, Nurse Practitioner as directed. Dr. Milan MD I have performed a history and examination and MDM of this patient, discussed the same with the dictator, and agree with the dictator's assessment and plan as written ,documented as a scribe. Based on total visit time, I have performed more than 50% of the visit. Objective - Vital Signs Vital signs: Vital Signs Temp 97.6 F 11/02/21 07:56 Pulse 78 11/02/21 08:00 Resp 18 11/02/21 08:00 BP 148/85 11/02/21 07:56 Pulse Ox 96 11/02/21 07:56 FiO2 Intake & Output 11/01/21 11/02/21 11/02/21 18:59 06:59 18:59 Intake Total 680 10 Output Total 850 650 Balance 680 -840 -650 Intake: IV 400 10 .9@25 300 Invasive Line 3 10 Intake, IV Titration 100 Amount Piperacillin-Tazobactam 3 100 .375 gm In Sodium Chloride 0.9% 100 ml @ 25 mls/hr IVPB Q8HR [facility] Rx# :[id number] Oral 180 Output: Urine 850 650 Other: Voiding Method Diaper Diaper Diaper External Catheter External Catheter # Voids 1 1 # Bowel Movements 1 - Labs CBC & Chem 7: 11/02/21 08:27 11/02/21 08:27 Labs: Abnormal Lab Results - Last 24 Hours (Table) 11/01/21 11/01/21 11/01/21 Range/Units 11:45 16:53 20:10 Carbon Dioxide (22-30) mmol/L Glucose (74-99) mg/dL POC Glucose (mg/dL) 137 H 156 H 237 H (75-99) mg/dL 11/02/21 11/02/21 Range/Units 06:04 08:27 Carbon Dioxide 40 H (22-30) mmol/L Glucose 118 H (74-99) mg/dL POC Glucose (mg/dL) 144 H (75-99) mg/dL Microbiology - Last 24 Hours (Table) 10/26/21 20:22 Blood Culture - Final Blood No Growth after 144 hours
[2021-11-03] MEDS: PIPERACILLIN-TAZOBACTAM 3.375 GM in SODIUM CHLORIDE 0.9% 100 ML IVPB SCH ×4 (00:43→23:41)
[2021-11-03] MEDS: HEPARIN SODIUM,PORCINE/PF 5,000 UNIT/0.5 ML SYRINGE SQ SCH ×4 (00:43→23:41)
[2021-11-03 06:28] LABS: Glucose,Whole Blood 118 mg/dL (75-99)
[2021-11-03] MEDS: INSULIN ASPART (NovoLOG) 100 UNIT/ML VIAL SQ SCH ×4 (06:28→20:50)
[2021-11-03] MEDS: glipiZIDE 10 MG TAB PO SCH ×2 (07:00→16:53)
[2021-11-03] MEDS: ASPIRIN 81 MG PO SCH (08:20)
[2021-11-03] MEDS: MULTIVITAMINS, THERA 1 EACH TAB PO SCH (08:20)
[2021-11-03] MEDS: CLOPIDOGREL 75 MG TAB PO SCH (08:20)
--- NOTE | 2021-11-03 09:25 | P.PN ---
Subjective Progress Note Date: 11/02/21 11/02/2021: Patient is laying comfortably in the bed. Offers no complaints. Patient's daughters were present. They feel patient has no slurring, but speaks slowly since her stroke. 11/01/2021: Patient is laying comfortably in the bed. Offers no complaints. Family members not present today. 10/31/2021: Patient laying comfortably in the bed. Patient's family members were present. Patient denies headache. Offers no complaints. Per family, patient has improved, but not back to baseline. 10/29/2021: Patient was initially seen by Dr. Israel Mcguire. Please refer to his note for detail. Patient is a 61-year-old female with recent multiple small strokes over the left hemisphere. Dr. Mcguire had consulted cardiology for JAI and event monitor. Currently on aspirin and Plavix. At home patient was only taking aspirin 81 mg daily. MRI Brain: Is reported as small foci of subacute ischemia, consider embolic disease. There is underlying chronic small vessel ischemic change suspected, cortical atrophy similar to prior exam. The subacute ischemia is over the left lateral ventricle over the posterior horn periventricular region, left cerebellar. I personally reviewed the MRI and agree the patient has multiple foci over the left hemisphere left cerebellar, as mentioned above. I did not appreciate left thalamic infarct as noted by Dr. Mcguire. Routine EEG is abnormal. The background slowing is suggestive of mild encephalopathy of unknown etiology. Otherwise, there is no focal slowing, epileptiform discharges or seizure on the EEG. 2Decho: Continue difficult study for interpretation. Normal left ventricular dimension and systolic function. Normal left atrial size Carotid duplex: Nondiagnostic study as patient was unable to finished bilateral complet carotid ultrasound evaluation. Objective - Vital Signs Vital signs: Vital Signs Temp 99.2 F 11/03/21 07:45 Pulse 89 11/03/21 08:00 Resp 16 11/03/21 08:00 BP 127/79 11/03/21 07:45 Pulse Ox 91 L 11/03/21 08:02 FiO2 Intake & Output 11/02/21 11/03/21 11/03/21 18:59 06:59 18:59 Intake Total 240 Output Total 650 800 Balance -650 -800 240 Intake: Oral 240 Output: Urine 650 800 Other: Voiding Method Diaper Diaper Diaper External Catheter External Catheter External Catheter # Voids 1 - Exam GENERAL: The patient is lying in bed and is not in acute distress. NEUROLOGICAL: Higher mental function: The patient is awake and alert. Patient states it's December and the year is 2021. She knows that she is in a hospital but does not know the name. She does know that she is in [facility]. Patient is following simple commands. Her speech is mildly slow and mildly dysarthric. No aphasia. Patient can name and repeat. Cranial nerves: The pupils are round, equal and reactive to light. No facial droop. Visual tobias are full with no neglect. Sticking tongue out and move sided to side without difficulty. Motor: The strength is normal in arms and legs distally and proximally. Cerebellum: Very slight ataxia for [id number] on the right, but not on the left. Sensation: Equal bilaterally, no neglect. Reflexes (right/left):2+ throughout. Gait not checked. - Labs CBC & Chem 7: 11/02/21 08:27 11/02/21 08:27 Labs: Abnormal Lab Results - Last 24 Hours (Table) 11/02/21 11/02/21 11/02/21 Range/Units 08:27 11:41 16:09 Carbon Dioxide 40 H (22-30) mmol/L Glucose 118 H (74-99) mg/dL POC Glucose (mg/dL) 183 H 190 H (75-99) mg/dL 11/02/21 11/03/21 Range/Units 20:01 06:26 Carbon Dioxide (22-30) mmol/L Glucose (74-99) mg/dL POC Glucose (mg/dL) 171 H 118 H (75-99) mg/dL Assessment and Plan Assessment: Acute CVA: Multiple foci (x2), over the left hemipshere in the posterior periventricular region and tiny area in the left cerebellum. Seems emoblic. (presented with Right transient facial droop and continues to be confused). No IV tpa since outside window Encephalopathy of unknown etiology Small PFO noted on JAI. TIA about 10 years ago diabetes mellitus hyperlipidemia obstructive sleep apnea on CPAP diabetic retinopathy diabetic neuropathy Plan: JAI 11/01/2021. Aortic valve is tricuspid and functionally normal. No aortic stenosis, no aortic regurgitation. Mitral valve appears to be normal and mild mitral regurgitation. Interatrial septum was intact. There is a small PFO with right to left bubble shunt. Left atrial appendage is free of clot. Left ventricular size and function is normal with left ventricular ejection fraction 60-65%. Cardiology on board. Would defer to cardiology if PFO closure should be considered. Patient currently has possible pneumonia and UTI. Patient needs to recuperate completely from infection and then may undergo PFO closure in 1-2 weeks as outpatient. Currently patient on Zosyn. Patient to undergo event monitoring placement also. MRI Brain: Is reported as small foci of subacute ischemia, consider embolic disease. There is underlying chronic small vessel ischemic change suspected, cortical atrophy similar to prior exam. The subacute ischemia is over the left lateral ventricle over the posterior horn periventricular region, left cerebellar. I personally reviewed the MRI and agree the patient has multiple foci over the left hemisphere left cerebellar as mentioned. Continue dual antiplatelet medication with Plavix 75 mg and aspirin 81 mg daily. After 21 days, may stop aspirin and maintain on Plavix 75 mg daily. (Patient was taking aspirin prior to arrival to the hospital) Telemetry monitoring showing sinus rhythm, no other arrhythmia. Carotid Doppler 10/31/2021 revealed no hemodynamically significant stenosis in either ICA. Antegrade flow in both vertebral arteries. Lipid panel with cholesterol 118, LDL 55, HDL 40 and triglycerides were 11. Continue Lipitor 80 mg daily. Hemoglobin A1c 6.8 on 09/15/2021. PT, OT and PAPER FINISHER are consulted For DVT prophylaxis: On subq heparin 5000U every 12 hours. We'll defer the rest of the medical management to primary team
[2021-11-03 11:47] LABS: Glucose,Whole Blood 212 mg/dL (75-99)
--- NOTE | 2021-11-03 13:55 | P.DS ---
Providers Date of admission: 10/27/21 12:05 Expected date of discharge: 11/03/21 Attending physician: Ivory Yates Consults: 10/25/21 16:21 Consult Physician Routine Consulting Provider: Israel Mcguire Consult Reason/Comments: AMS Do you want consulting provider notified?: Yes 10/31/21 12:26 Consult Physician Routine Consulting Provider: Skyler Lei Consult Reason/Comments: JAI on 11/01/2021 Do you want consulting provider notified?: Already Contacted Primary care physician: Yandy Cedillo Hospital Course: Final diagnosis Acute/subacute CVA with right facial weakness. Possible embolic disease as per MRI. JAI reveals PFO small right to left shunt Altered mental status and metabolic encephalopathy. improved. Acute hypoxic respiratory failure requiring high flow oxygen. possibly secondary to aspiration pneumonia Acute urinary tract infection, present on admission Diabetes type 2 Hyperlipidemia History of TIA History of MRSA Gait dysfunction Diabetic retinopathy neuropathy Obstructive sleep apnea on CPAP DVT prophylaxis on heparin subcu Full code Discharge disposition Patient is being discharged in a stable condition with guarded prognosis to [facility] for continued PT/OT therapy. Patient will follow-up with Dr. Cedillo in the outpatient setting upon discharge. Patient is to follow- up with cardiology and also neurology in 1-2 weeks. Patient is continue with event monitor and cardiology follow-up with Dr. Owens in 1-2 weeks. Patient will continue on dual antiplatelet therapy of Plavix and aspirin for 21 days and after 21 days may discontinue aspirin and continue with Plavix indefinitely. Total time taken is greater than 35 minutes. Hospital course This is a 61-year-old female who was recently admitted with altered mental status and also being treated for a possible acute urinary tract infection and possible aspiration pneumonia. Multiple medical consultations following including cardiology and now neurology and had extensive workup for CVA as MRI of the brain showed a small foci of subacute ischemia considering embolic disease and underlying small chronic vessel ischemic changes. Patient underwent JAI which displayed a small right to left shunt PFO and will continue with an event monitor in the outpatient setting for 2 weeks and close outpatient follow- up with cardiology Dr. Owens and to discuss at that time treatment options and plans moving forward. Patient will also need neurology follow-up in the outpatient setting. Patient was evaluated by speech showing some aspiration and recommend maintaining strict aspiration precautions and dysphagia pured diet as discussed below. Recommend Accu-Cheks before meals and at bedtime and close monitoring of blood sugars and continue with sliding scale for now. Patient also requiring oxygen most likely secondary to aspiration pneumonia and currently maintained on 3 L via nasal cannula and recommend to continue with weaning FiO2 as tolerated. Currently no reports of chest pain, shortness of breath, or palpitations. Patient is afebrile. No reports of nausea or vomiting and patient is tolerating diet. Patient will be going to [facility] today. Guarded prognosis. On exam vital signs are stable. Cardio S1, S2 are muffled. Respiratory system shows diminished breath sounds at the bases with some scattered rhonchi noted. Abdomen is soft and obese, and nontender. Nervous system shows diffuse weakness. Please refer to medication reconciliation sheet for a list of medications. The impression and plan of care has been dictated by Cynthia Anaya, Nurse Practitioner as directed. Dr. Milan MD I have performed a history and examination and MDM of this patient, discussed the same with the dictator, and agree with the dictator's assessment and plan as written ,documented as a scribe. Based on total visit time, I have performed more than 50% of the visit. Patient Condition at Discharge: Stable Plan - Discharge Summary Discharge Rx Participant: No New Discharge Prescriptions: New Amoxic-Pot Clav 875-125Mg [Augmentin 875-125] 1 tab PO Q12HR 7 Days #14 tab Lactulose [Cephulac] 30 gm PO TID PRN ml PRN Reason: Constipation Venlafaxine HCl ER [Effexor XR] 150 mg PO HS #2 cap INSULIN ASPART (NovoLOG) [NovoLOG (formulary)] 0 unit SQ ACHS each Clopidogrel [Plavix] 75 mg PO DAILY tab Heparin Sodium,Porcine [Heparin Sodium] 5,000 unit SQ Q12HR 30 Days #60 each Continue Aspirin EC [Ecotrin Low Dose] 81 mg PO DAILY glipiZIDE [Glucotrol] 10 mg PO AC-BID metFORMIN HCL ER [Glucophage XR] 500 mg PO BID Multivitamins, Thera [Multivitamin (formulary)] 1 tab PO DAILY Ondansetron [Zofran] 4 mg PO Q8HR PRN PRN Reason: Nausea Rosuvastatin Calcium [Crestor] 40 mg PO HS Changed HYDROcodone/APAP 5-325MG [Hollins 5-325] 1 tab PO DAILY PRN #3 tab PRN Reason: Pain Discontinued Venlafaxine HCl [Venlafaxine HCl ER] 150 mg PO HS Insulin Glargine,Hum.rec.anlog [Lantus Solostar Pen] 0 - 30 unit SQ HS Discharge Medication List Aspirin EC [Ecotrin Low Dose] 81 mg PO DAILY 10/25/21 [History] Multivitamins, Thera [Multivitamin (formulary)] 1 tab PO DAILY 10/25/21 [History] Ondansetron [Zofran] 4 mg PO Q8HR PRN 10/25/21 [History] Rosuvastatin Calcium [Crestor] 40 mg PO HS 10/25/21 [History] glipiZIDE [Glucotrol] 10 mg PO AC-BID 10/25/21 [History] metFORMIN HCL ER [Glucophage XR] 500 mg PO BID 10/25/21 [History] Amoxic-Pot Clav 875-125Mg [Augmentin 875-125] 1 tab PO Q12HR 7 Days #14 tab 11/03/21 [Rx] Clopidogrel [Plavix] 75 mg PO DAILY tab 11/03/21 [Rx] HYDROcodone/APAP 5-325MG [Hollins 5-325] 1 tab PO DAILY PRN #3 tab 11/03/21 [Rx] Heparin Sodium,Porcine [Heparin Sodium] 5,000 unit SQ Q12HR 30 Days #60 each 11/03/21 [Rx] INSULIN ASPART (NovoLOG) [NovoLOG (formulary)] 0 unit SQ ACHS each 11/03/21 [Rx] Lactulose [Cephulac] 30 gm PO TID PRN ml 11/03/21 [Rx] Venlafaxine HCl ER [Effexor XR] 150 mg PO HS #2 cap 11/03/21 [Rx] Follow up Appointment(s)/Referral(s): Jimmie Owens DO [STAFF PHYSICIAN] - 2 Weeks Yandy Cedillo III, MD [Primary Care Provider] - 1-2 days Israel Rivas MD [STAFF PHYSICIAN] - 1 Week Ambulatory/Diagnostic Orders: Complete Blood Count w/diff [LAB.AMB] Time Frame: 3 Days, Location: None Selected Activity/Diet/Wound Care/Special Instructions: Patient is going to ECF Activity as tolerated Follow up with primary care provider on discharge Follow-up with cardiology and continue with event monitor in 1-2 weeks Follow-up with neurology outpatient Continue taking antibiotics for 1 week and then may discontinue Per neurology patient is to continue with aspirin and Plavix daily and after 21 days may stop aspirin and continue with just Plavix 75 mg daily Recommend continue monitoring Accu-Cheks before meals and at bedtime NovoLog sliding scale 0-150 equals 0 units 151-200 equals 2 units 201-250 equals 4 units 251-300 equals 6 units 301-350 equals 8 units 351-400 equals 10 units Please notify provider if blood sugar is 400 or above Continue with aspiration precautions of head of the bed elevated 30-45 at all times, supervision with meals, Continue consistent carb dysphasia pured diet with one-to-one supervision, honey thickened liquids, aspiration precautions and no straws Recommend repeat labs of CBC and BMP in 2-3 days Continue oxygen supplementation and wean as tolerated and patient is currently maintaining on 3 L Please follow up with Cardiology, Dr. Owens in 1-2 weeks Discharge Disposition: TRANSFER TO SNF/ECF
[2021-11-03 16:34] LABS: Glucose,Whole Blood 213 mg/dL (75-99)
--- NOTE | 2021-11-03 19:54 | P.PN ---
Subjective Progress Note Date: 11/03/21 Patient is a 61-year-old female who was admitted to hospital for altered mental status and will also be treated for acute urinary tract infection. 10/27/2021. Patient is awake alert oriented. No complaints of chest pain or shortness of breath. Patient had MRI of the brain today. MRI of the brain showed small foci of subacute ischemia considered embolic disease. There is underlying chronic small vessel ischemic change suspected. EEG is abnormal. Background slowing is suggestive of mild encephalopathy of unknown etiology. 2D echocardiogram normal left ventricular systolic function. Carotid duplex showed nondiagnostic study as patient is unable to be finished bilateral complete carotid ultrasound evaluation. Patient underwent swallow study. Showed glen aspiration with laryngeal penetration noted on thin liquids. Vallecular residuals are also present. No aspiration noted on solid or honey thick consistency. Laboratory pressure WBC 9.4 hemoglobin 13.0 and platelets 204 Sodium 139 potassium 4.0 chloride 105 bicarb 28 BUN 19 and creatinine 0.55 and blood sugar is 188 LDL 55. Neurology is on board. Cardiology was consulted due to possible embolic etiology and JAI study. 10/28/2021 Patient is awake alert and oriented. No complaints of chest pain. Patient is currently on high flow oxygen at 8 to 10 L via nasal cannula. Tolerating dysphagia level 1 diet. Patient has been afebrile. No cough or sputum production. No complaints of nausea or vomiting. No headache or dizziness or li ghtheadedness. Urine culture showed normal sana. Blood cultures have been negative so far. Laboratory data reviewed. Patient is being continued on aspirin and Plavix and statins. Cardiology is pl anning for JAI on Saturday or as an outpatient. 10/29/2021 Patient is currently resting in bed. Awake alert oriented x3. No complaints of chest pain or shortness of breath. No nausea vomiting abdominal pain or diarrhea. Patient is scheduled for JAI on Saturday. Urine culture showed normal sana. Laboratory showed WBC 8.3 hemoglobin 13.9 and platelets 229 sodium 141 potassium 3.7, bicarb is 32 BUN 9 and creatinine 0.52 blood sugar 105 patient is being continued on aspirin and Plavix and antibiotics ceftriaxone. Cardiology and neurology is on board. Patient is currently requiring oxygen at 8 L via nasal cannula. Repeat chest x-ray showed no acute cardiopulmonary disease. 10/30/2021 Patient is seen and evaluated and follow-up this morning currently sitting up in the chair with family at the bedside. Cardiology has been consulted and will have possible JAI tomorrow with neurological workup in process. Patient also being treated for an acute urinary tract infection and is maintained on ceftriaxone. Patient currently maintained on 8 L high flow and weaning as tolerated. Neurology concern for possible embolic source of this acute CVA. Per daughter at the bedside patient does not wear any oxygen in the outpatient setting. Urine cultures have been negative. She denies any chest pain or worsening shortness of breath. Patient is afebrile and is tolerating diet with no reports of nausea or vomiting noted. 10/31/2021 Patient is seen in follow up today and undergoing neurological work up and cardio following as well. Patient is scheduled for JAI on 11/01 and will continue to closely monitor. Patient is maintained on aspirin, plavix, and statin and will continue. Patient continues to be short of breath and cxr ordered. Patient was on ceftriaxone and will add zosyn as patient is probable for aspiration pneumonia. Patient denies chest pain and is afebrile. Patient with weakness and recommend PT/OT to work with daily. Patient continues with 6L via NC and does not normally wear oxygen in the outpatient setting. Daughter at the bedside 11/01/2021 Patient is evaluated today and is status post JAI and cardiology and neurology following closely. Patient with ongoing neurological work-up and JAI shows PFO. Per daughter at bedside, cardiology is to review and unsure about surgical intervention yet at this time. Will await report. Patient is also continued on IV zosyn and recommend aspiration precautions. Patient reports to tolerating diet and denies nausea or vomiting. Patient is afebrile. Patient continues with shortness of breath and discussed with entry level staff accountant about weaning FI02 as tolerated. PT/OT following. 11/02/2021 Patient is seen in follow up today and being followed by neurology and cardiology. Patient is status post JAI showing a small right to left shunt pfo and per cardiology will be closely monitored and discussed about any surgical intervention at follow up appointment in [address] Owens. Patient to also follow up with neurology in the outpatient setting. Patient is maintained on IV zosyn and will continue and transition to oral to complete the course. Patient is down to 4L via NC. Patient is afebrile and denies chest pain or worse otoniel shortness of breath. Ecf being planned and will require insurance auth. 11/03/2021 Patient continues to be closely monitored and planning for ECF. Awaiting insurance authorization. Patient is afebrile and is tolerating diet. Encouraged oral intake. Patient titrating 02 down and currently on 3 L via NC. Patient with an event monitor placed and will follow with Dr. Owens in 1-2 weeks. Outpa tient neurology follow up as well. Denies chest pain or shortness of breath. Active Medications Acetaminophen (Acetaminophen Tab 325 Mg Tab) 650 mg PO Q6HR PRN PRN Reason: Mild Pain or Fever > 100.5 Hydrocodone Bitart/Acetaminophen (Hydrocodone/Apap 5-325mg 1 Each Tab) 1 each PO DAILY PRN PRN Reason: Pain Aspirin (Aspirin 81 Mg) 81 mg PO DAILY OSMANI Last Admin: 11/02/21 08:50 Dose: 81 mg Atorvastatin Calcium (Atorvastatin 80 Mg Tab) 80 mg PO HS OSMANI Last Admin: 11/02/21 21:11 Dose: 80 mg Clopidogrel Bisulfate (Clopidogrel 75 Mg Tab) 75 mg PO DAILY OSMANI Last Admin: 11/02/21 08:50 Dose: 75 mg Glipizide (Glipizide 10 Mg Tab) 10 mg PO AC-BID OSMANI Last Admin: 11/02/21 17:15 Dose: 10 mg Heparin Sodium (Porcine) (Heparin Sodium,Porcine/Pf 5,000 Unit/0.5 Ml Syringe) 5,000 unit SQ Q8HR OSMANI Last Admin: 11/02/21 17:15 Dose: 5,000 unit Piperacillin Sod/Tazobactam (Sod 3.375 gm/ Sodium Chloride) 100 mls @ 25 mls/hr IVPB Q8HR OSMANI; Protocol Last Admin: 11/02/21 17:15 Dose: 25 mls/hr Insulin Aspart (Insulin Aspart (Novolog) 100 Unit/Ml Vial) 0 unit SQ ACHS OSMANI; Protocol Last Admin: 11/02/21 21:11 Dose: 2 unit Lactulose (Lactulose 20 Gm/30 Ml Cup) 30 gm PO TID PRN PRN Reason: Constipation Last Admin: 10/31/21 17:05 Dose: 30 gm Multivitamins (Multivitamins, Thera 1 Each Tab) 1 each PO DAILY OSMANI Last Admin: 11/02/21 08:50 Dose: 1 each Naloxone HCl (Naloxone 0.4 Mg/Ml 1 Ml Vial) 0.2 mg IV Q2M PRN PRN Reason: Opioid Reversal Ondansetron HCl (Ondansetron 4 Mg Tab) 4 mg PO Q8HR PRN PRN Reason: Nausea Venlafaxine HCl (Venlafaxine Hcl Er 150 Mg Cap) 150 mg PO HS [facility] Last Admin: 11/02/21 21:11 Dose: 150 mg PHYSICAL EXAMINATION: Patient is sitting up in the chair, awake alert and oriented 2. currently on 3L via NC HEENT: Normocephalic. Neck is supple. Pupils reactive. Nostrils clear. Oral cavity is moist. Neck reveals no JVD, carotid bruits, or thyromegaly. CHEST EXAMINATION: Trachea is central. Symmetrical expansion. Bibasilar diminished sounds with some scattered rhonchi noted.. CARDIAC: S1, S2 are muffled ABDOMEN: Soft. Bowel sounds normal. No organomegaly. No abdominal bruits. Extremities: reveal no edema. No clubbing or cyanosis Neurologically awake, alert, oriented x2. Skin: No rash or skin lesions. Psychiatric: Cooperative. Non-suicidal Musculoskeletal: No joint swelling or deformity. Assessment: Acute/subacute CVA with right facial weakness. Possible embolic disease as per MRI. JAI reveals PFO small right to left shunt Altered mental status and metabolic encephalopathy. improved. Acute hypoxic respiratory failure requiring high flow oxygen. possibly secondary to aspiration pneumonia Acute urinary tract infection, present on admission Diabetes type 2 Hyperlipidemia History of TIA History of MRSA Gait dysfunction Diabetic retinopathy neuropathy Obstructive sleep apnea on CPAP DVT prophylaxis on heparin subcu Full code Plan: Patient is being continued aspirin and Plavix and statin. Patient has undergone full neurologic work-up done including MRI of the brain. CTA of the neck could not be done as the patient is allergic to iodine dye. Carotid doppler with some plaque with no significant stenosis Due to embolic etiology cardiology following as JAI shows PFO, no plan for immediate intervention and patient has event monitor placed and to follow with Dr. Owens in the office in two weeks to discuss options. Patient does have aspiration with thin liquids and continue with honey thickened liquids and solid diet. Speech therapy following recommend to continue strict aspiration precautions. Recommend to titrate down O2 as tolerated, currently maintained on 3 L via NC. Recommend to continued IV abx in the form of Zosyn. Transition to oral augmentin bid for one week on discharge. patient does not normally wear any oxygen in the outpatient setting, probable aspiration pneumonia [facility] and requires insurance auth. Due to multiple complex medical issues, prognosis is guarded. Possible discharge in 24 hours. Case management for Saturday aware if insurance auth is obtained, [facility] will accept. The impression and plan of care has been dictated by Cynthia Anaya, Nurse Practitioner as directed. Dr. Milan MD I have performed a history and examination and MDM of this patient, discussed the same with the dictator, and agree with the dictator's assessment and plan as written ,documented as a scribe. Based on total visit time, I have performed more than 50% of the visit. Objective - Vital Signs Vital signs: Vital Signs Temp 98.8 F 11/03/21 15:30 Pulse 88 11/03/21 15:30 Resp 18 11/03/21 15:30 BP 120/66 11/03/21 15:30 Pulse Ox 94 L 11/03/21 15:30 FiO2 Intake & Output 11/03/21 11/03/21 11/04/21 06:59 18:59 06:59 Intake Total 720 Output Total 800 700 Balance -800 20 Intake: Oral 720 Output: Urine 800 700 Other: Voiding Method Diaper Diaper External Catheter External Catheter - Labs CBC & Chem 7: 11/02/21 08:27 11/02/21 08:27 Labs: Abnormal Lab Results - Last 24 Hours (Table) 11/02/21 11/03/21 11/03/21 Range/Units 20:01 06:26 11:45 POC Glucose (mg/dL) 171 H 118 H 212 H (75-99) mg/dL 11/03/21 Range/Units 16:32 POC Glucose (mg/dL) 213 H (75-99) mg/dL
[2021-11-03] MEDS: ATORVASTATIN 80 MG TAB PO SCH (20:07)
[2021-11-03] MEDS: VENLAFAXINE HCL ER 150 MG CAP PO SCH (20:07)
[2021-11-03 20:48] LABS: Glucose,Whole Blood 152 mg/dL (75-99)
[2021-11-04 06:12] LABS: Glucose,Whole Blood 120 mg/dL (75-99)
[2021-11-04] MEDS: INSULIN ASPART (NovoLOG) 100 UNIT/ML VIAL SQ SCH ×4 (06:13→20:23)
[2021-11-04] MEDS: glipiZIDE 10 MG TAB PO SCH ×2 (06:21→16:57)
[2021-11-04] MEDS: MULTIVITAMINS, THERA 1 EACH TAB PO SCH (10:17)
[2021-11-04] MEDS: CLOPIDOGREL 75 MG TAB PO SCH (10:17)
[2021-11-04] MEDS: HEPARIN SODIUM,PORCINE/PF 5,000 UNIT/0.5 ML SYRINGE SQ SCH ×3 (10:17→22:53)
[2021-11-04] MEDS: PIPERACILLIN-TAZOBACTAM 3.375 GM in SODIUM CHLORIDE 0.9% 100 ML IVPB SCH ×3 (10:17→22:53)
[2021-11-04] MEDS: ASPIRIN 81 MG PO SCH (10:18)
[2021-11-04 11:34] LABS: Glucose,Whole Blood 266 mg/dL (75-99)
--- NOTE | 2021-11-04 13:06 | PN ---
PROGRESS NOTE DATE OF SERVICE: 11/04/2021 This 61-year-old woman who was admitted with multiple strokes was found to have PFO which is to be followed up in the outpatient setting per Cardiology. PT/OT is evaluating the patient for possible rehab. No chest pain. No palpitations. No fever. PHYSICAL EXAMINATION: Pulse is 83, blood pressure 130/70, respirations 16. CHEST: Clear to auscultation. CARDIOVASCULAR: S1, S2 n. ABDOMEN: Soft. NERVOUS SYSTEM: Diffusely weak. LABS: Glucose 260. Other labs are reviewed. ASSESSMENT: 1. Acute subacute cerebrovascular accident on the right with facial paralysis; possibly embolic disease per MRI. 2. PFO in the transesophageal echocardiogram. 3. Change in mental status. 4. Gait dysfunction. 5. Diabetes mellitus, type 2. 6. Multiple medical issues. RECOMMENDATIONS AND DISCUSSION: I recommend to continue current medications, continue with the monitoring, symptomatic treatment. PT/OT evaluation. Continue with antiplatelet agents and closely follow with Neurology and cardiology. Possible ECF rehab on Saturday. Further recommendations to follow. MMODL / IJN: [id number] / MTDD
[2021-11-04 16:39] LABS: Glucose,Whole Blood 203 mg/dL (75-99)
[2021-11-04 20:24] LABS: Glucose,Whole Blood 104 mg/dL (75-99)
[2021-11-04] MEDS: ATORVASTATIN 80 MG TAB PO SCH (20:37)
[2021-11-04] MEDS: VENLAFAXINE HCL ER 150 MG CAP PO SCH (20:37)
[2021-11-05 06:23] LABS: Glucose,Whole Blood 108 mg/dL (75-99)
[2021-11-05] MEDS: INSULIN ASPART (NovoLOG) 100 UNIT/ML VIAL SQ SCH ×4 (06:24→20:32)
[2021-11-05] MEDS: glipiZIDE 10 MG TAB PO SCH ×2 (06:29→17:50)
[2021-11-05] MEDS: MULTIVITAMINS, THERA 1 EACH TAB PO SCH (08:59)
[2021-11-05] MEDS: CLOPIDOGREL 75 MG TAB PO SCH (08:59)
[2021-11-05] MEDS: ASPIRIN 81 MG PO SCH (08:59)
[2021-11-05] MEDS: PIPERACILLIN-TAZOBACTAM 3.375 GM in SODIUM CHLORIDE 0.9% 100 ML IVPB SCH ×3 (08:59→23:30)
[2021-11-05] MEDS: HEPARIN SODIUM,PORCINE/PF 5,000 UNIT/0.5 ML SYRINGE SQ SCH ×3 (08:59→23:29)
[2021-11-05 11:55] LABS: Glucose,Whole Blood 282 mg/dL (75-99)
--- NOTE | 2021-11-05 14:09 | PN ---
PROGRESS NOTE DATE OF SERVICE: 11/05/2021 This 61-year-old woman who was admitted with acute to subacute CVI on the right with facial paralysis, also had a PFO. The patient is awaiting rehab. No chest pain. No palpitations. No fever. PHYSICAL EXAMINATION: Pulse is 82, blood pressure 122/56. Respirations 16. HEENT: Conjunctivae normal. Neck: No JVD. Cardiovascular: S1, S2. Respiration: Breath sounds diminished in the bases. A few scattered rhonchi. Nervous system: Diffusely weak. LABS: Reviewed. ASSESSMENT: 1. Acute to subacute CVI on the right side with facial paralysis, possibly embolic disease per MRI. 2. PFO in the JAI for outpatient followup. 3. Change in mental status. 4. Gait dysfunction. 5. Diabetes type 2. 6. Multiple medical issues. RECOMMENDATIONS AND DISCUSSION: I recommend to continue current medications, management and symptomatic treatment. Otherwise, at this time, I recommend continue the current medications. PT/OT evaluation. Continue antiplatelets. Follow closely with multiple consultants. Prognosis guarded. Further recommendations to follow. MMODL / IJN: [id number] /
[2021-11-05 16:51] LABS: Glucose,Whole Blood 257 mg/dL (75-99)
[2021-11-05 20:22] LABS: Glucose,Whole Blood 134 mg/dL (75-99)
[2021-11-05] MEDS: ATORVASTATIN 80 MG TAB PO SCH (20:33)
[2021-11-05] MEDS: VENLAFAXINE HCL ER 150 MG CAP PO SCH (20:33)
[2021-11-06 06:05] LABS: Glucose,Whole Blood 97 mg/dL (75-99)
[2021-11-06] MEDS: INSULIN ASPART (NovoLOG) 100 UNIT/ML VIAL SQ SCH ×4 (06:39→20:57)
[2021-11-06] MEDS: glipiZIDE 10 MG TAB PO SCH ×2 (06:50→16:50)
[2021-11-06] MEDS: PIPERACILLIN-TAZOBACTAM 3.375 GM in SODIUM CHLORIDE 0.9% 100 ML IVPB SCH (08:11)
[2021-11-06] MEDS: MULTIVITAMINS, THERA 1 EACH TAB PO SCH (08:11)
[2021-11-06] MEDS: CLOPIDOGREL 75 MG TAB PO SCH (08:11)
[2021-11-06] MEDS: ASPIRIN 81 MG PO SCH (08:11)
[2021-11-06] MEDS: HEPARIN SODIUM,PORCINE/PF 5,000 UNIT/0.5 ML SYRINGE SQ SCH ×3 (08:11→22:54)
[2021-11-06 11:43] LABS: Glucose,Whole Blood 181 mg/dL (75-99)
--- NOTE | 2021-11-06 15:44 | P.PN ---
Subjective Progress Note Date: 11/06/21 Patient is a 61-year-old female who was admitted to hospital for altered mental status and will also be treated for acute urinary tract infection. 10/27/2021. Patient is awake alert oriented. No complaints of chest pain or shortness of breath. Patient had MRI of the brain today. MRI of the brain showed small foci of subacute ischemia considered embolic disease. There is underlying chronic small vessel ischemic change suspected. EEG is abnormal. Background slowing is suggestive of mild encephalopathy of unknown etiology. 2D echocardiogram normal left ventricular systolic function. Carotid duplex showed nondiagnostic study as patient is unable to be finished bilateral complete carotid ultrasound evaluation. Patient underwent swallow study. Showed glen aspiration with laryngeal penetration noted on thin liquids. Vallecular residuals are also present. No aspiration noted on solid or honey thick consistency. Laboratory pressure WBC 9.4 hemoglobin 13.0 and platelets 204 Sodium 139 potassium 4.0 chloride 105 bicarb 28 BUN 19 and creatinine 0.55 and blood sugar is 188 LDL 55. Neurology is on board. Cardiology was consulted due to possible embolic etiology and JAI study. 10/28/2021 Patient is awake alert and oriented. No complaints of chest pain. Patient is currently on high flow oxygen at 8 to 10 L via nasal cannula. Tolerating dysphagia level 1 diet. Patient has been afebrile. No cough or sputum production. No complaints of nausea or vomiting. No headache or dizziness or li ghtheadedness. Urine culture showed normal sana. Blood cultures have been negative so far. Laboratory data reviewed. Patient is being continued on aspirin and Plavix and statins. Cardiology is pl anning for JAI on Saturday or as an outpatient. 10/29/2021 Patient is currently resting in bed. Awake alert oriented x3. No complaints of chest pain or shortness of breath. No nausea vomiting abdominal pain or diarrhea. Patient is scheduled for JAI on Saturday. Urine culture showed normal sana. Laboratory showed WBC 8.3 hemoglobin 13.9 and platelets 229 sodium 141 potassium 3.7, bicarb is 32 BUN 9 and creatinine 0.52 blood sugar 105 patient is being continued on aspirin and Plavix and antibiotics ceftriaxone. Cardiology and neurology is on board. Patient is currently requiring oxygen at 8 L via nasal cannula. Repeat chest x-ray showed no acute cardiopulmonary disease. 10/30/2021 Patient is seen and evaluated and follow-up this morning currently sitting up in the chair with family at the bedside. Cardiology has been consulted and will have possible JAI tomorrow with neurological workup in process. Patient also being treated for an acute urinary tract infection and is maintained on ceftriaxone. Patient currently maintained on 8 L high flow and weaning as tolerated. Neurology concern for possible embolic source of this acute CVA. Per daughter at the bedside patient does not wear any oxygen in the outpatient setting. Urine cultures have been negative. She denies any chest pain or worsening shortness of breath. Patient is afebrile and is tolerating diet with no reports of nausea or vomiting noted. 10/31/2021 Patient is seen in follow up today and undergoing neurological work up and cardio following as well. Patient is scheduled for JAI on 11/01 and will continue to closely monitor. Patient is maintained on aspirin, plavix, and statin and will continue. Patient continues to be short of breath and cxr ordered. Patient was on ceftriaxone and will add zosyn as patient is probable for aspiration pneumonia. Patient denies chest pain and is afebrile. Patient with weakness and recommend PT/OT to work with daily. Patient continues with 6L via NC and does not normally wear oxygen in the outpatient setting. Daughter at the bedside 11/01/2021 Patient is evaluated today and is status post JAI and cardiology and neurology following closely. Patient with ongoing neurological work-up and JAI shows PFO. Per daughter at bedside, cardiology is to review and unsure about surgical intervention yet at this time. Will await report. Patient is also continued on IV zosyn and recommend aspiration precautions. Patient reports to tolerating diet and denies nausea or vomiting. Patient is afebrile. Patient continues with shortness of breath and discussed with [employer] staff officer about weaning FI02 as tolerated. PT/OT following. 11/02/2021 Patient is seen in follow up today and being followed by neurology and cardiology. Patient is status post JAI showing a small right to left shunt pfo and per cardiology will be closely monitored and discussed about any surgical intervention at follow up appointment in [address] Owens. Patient to also follow up with neurology in the outpatient setting. Patient is maintained on IV zosyn and will continue and transition to oral to complete the course. Patient is down to 4L via NC. Patient is afebrile and denies chest pain or worse otoniel shortness of breath. Ecf being planned and will require insurance auth. 11/03/2021 Patient continues to be closely monitored and planning for ECF. Awaiting insurance authorization. Patient is afebrile and is tolerating diet. Encouraged oral intake. Patient titrating 02 down and currently on 3 L via NC. Patient with an event monitor placed and will follow with Dr. Owens in 1-2 weeks. Outpa tient neurology follow up as well. Denies chest pain or shortness of breath. 11/06/2021 Patient is seen in follow-up with family at the bedside continuing to wait for insurance authorization as the plan is to go to [facility] for continued PT/OT therapy. Oral intake is fair and encouraged oral intake and continue with pured dysphagia diet and aspiration precautions. Patient also continues on 3 L via nasal cannula and needs encouragement on continuing to keep the nasal cannula on and discussed with nursing staff about weaning FiO2 as tolerated. Patient has received adequate amount of IV Ativan and will discontinue not requiring antibiotics on discharge. Patient will follow up with cardiology in the outpatient setting to discuss PFO findings on JAI. Patient will need outpatient neurology follow-up. Patient does have an event monitor currently on for cardiology follow-up in 1-2 weeks on discharge. Patient is afebrile and denies any chest pain or shortness of breath. Active Medications Acetaminophen (Acetaminophen Tab 325 Mg Tab) 650 mg PO Q6HR PRN PRN Reason: Mild Pain or Fever > 100.5 Hydrocodone Bitart/Acetaminophen (Hydrocodone/Apap 5-325mg 1 Each Tab) 1 each PO DAILY PRN PRN Reason: Pain Aspirin (Aspirin 81 Mg) 81 mg PO DAILY [facility] Last Admin: 11/06/21 08:11 Dose: 81 mg Atorvastatin Calcium (Atorvastatin 80 Mg Tab) 80 mg PO HS [facility] Last Admin: 11/05/21 20:33 Dose: 80 mg Clopidogrel Bisulfate (Clopidogrel 75 Mg Tab) 75 mg PO DAILY [facility] Last Admin: 11/06/21 08:11 Dose: 75 mg Glipizide (Glipizide 10 Mg Tab) 10 mg PO AC-BID [facility] Last Admin: 11/06/21 06:50 Dose: 10 mg Heparin Sodium (Porcine) (Heparin Sodium,Porcine/Pf 5,000 Unit/0.5 Ml Syringe) 5,000 unit SQ Q8HR [facility] Last Admin: 06/06/22 08:11 Dose: 5,000 unit Insulin Aspart (Insulin Aspart (Novolog) 100 Unit/Ml Vial) 0 unit SQ ACHS [facility]; Protocol Last Admin: 11/06/21 11:52 Dose: 2 unit Lactulose (Lactulose 20 Gm/30 Ml Cup) 30 gm PO TID PRN PRN Reason: Constipation Last Admin: 10/31/21 17:05 Dose: 30 gm Multivitamins (Multivitamins, Thera 1 Each Tab) 1 each PO DAILY [facility] Last Admin: 11/06/21 08:11 Dose: 1 each Naloxone HCl (Naloxone 0.4 Mg/Ml 1 Ml Vial) 0.2 mg IV Q2M PRN PRN Reason: Opioid Reversal Ondansetron HCl (Ondansetron 4 Mg Tab) 4 mg PO Q8HR PRN PRN Reason: Nausea Venlafaxine HCl (Venlafaxine Hcl Er 150 Mg Cap) 150 mg PO HS [facility] Last Admin: 11/05/21 20:33 Dose: 150 mg PHYSICAL EXAMINATION: Patient is sitting up in the chair, awake alert and oriented 2. currently on 3L via NC HEENT: Normocephalic. Neck is supple. Pupils reactive. Nostrils clear. Oral cavity is moist. Neck reveals no JVD, carotid bruits, or thyromegaly. CHEST EXAMINATION: Trachea is central. Symmetrical expansion. Bibasilar di minished sounds with some scattered rhonchi noted.. CARDIAC: S1, S2 are muffled ABDOMEN: Soft. Bowel sounds normal. No organomegaly. No abdominal bruits. Extremities: reveal no edema. No clubbing or cyanosis Neurologically awake, alert, oriented x2. Skin: No rash or skin lesions. Psychiatric: Cooperative. Non-suicidal Musculoskeletal: No joint swelling or deformity. Assessment: Acute/subacute CVA with right facial weakness. Possible embolic disease as per MRI. JAI reveals PFO small right to left shunt Altered mental status and metabolic encephalopathy. improved. Acute hypoxic respiratory failure requiring high flow oxygen. possibly secondary to aspiration pneumonia Acute urinary tract infection, present on admission Diabetes type 2 Hyperlipidemia History of TIA History of MRSA Gait dysfunction Diabetic retinopathy neuropathy Obstructive sleep apnea on CPAP DVT prophylaxis on heparin subcu Full code Plan: Patient is being continued aspirin and Plavix and statin. Patient has undergone full neurologic work-up done including MRI of the brain. Patient also underwent JIA shows PFO, no plan for immediate intervention and patient has event monitor placed and to follow with Dr. Owens in the office in two weeks to discuss options. Patient does have aspiration with thin liquids and continue with honey thickened liquids and solid diet. recommend to continue strict aspiration precautions. Recommend to titrate down O2 as tolerated, currently maintained on 3 L via NC. Plan is to discharge to [facility] and requires insurance auth. continuing to wait for insurance authorization at this time. Due to multiple complex medical issues, prognosis is guarded. Possible discharge in 24 hours to [facility] The impression and plan of care has been dictated by Cynthia Anaya, Nurse Practitioner as directed. Dr. Maximino MD I have performed a history and examination and MDM of this patient, discussed the same with the dictator, and agree with the dictator's assessment and plan as written ,documented as a scribe. Based on total visit time, I have performed more than 50% of the visit. Objective - Vital Signs Vital signs: Vital Signs Temp 98.0 F 11/06/21 08:07 Pulse 77 11/06/21 08:07 Resp 18 11/06/21 08:07 BP 122/78 11/06/21 08:07 Pulse Ox 95 11/06/21 08:07 FiO2 Intake & Output 11/05/21 11/06/21 11/06/21 18:59 06:59 18:59 Intake Total 694 Output Total 700 500 Balance -6 -500 Intake: Intake, IV Titration 100 Amount Piperacillin-Tazobactam 3 100 .375 gm In Sodium Chloride 0.9% 100 ml @ 25 mls/hr IVPB Q8HR [facility] Rx# :[id number] Oral 594 Output: Urine 700 500 Other: Voiding Method Diaper Indwelling Catheter External Catheter # Voids 1 # Bowel Movements 1 - Labs CBC & Chem 7: 11/02/21 08:27 11/02/21 08:27 Labs: Abnormal Lab Results - Last 24 Hours (Table) 11/05/21 11/05/21 11/05/21 Range/Units 11:53 16:43 20:19 POC Glucose (mg/dL) 282 H 257 H 134 H (75-99) mg/dL
[2021-11-06 16:24] LABS: Glucose,Whole Blood 298 mg/dL (75-99)
[2021-11-06 20:47] LABS: Glucose,Whole Blood 224 mg/dL (75-99)
[2021-11-06] MEDS: ATORVASTATIN 80 MG TAB PO SCH (20:57)
[2021-11-06] MEDS: VENLAFAXINE HCL ER 150 MG CAP PO SCH (21:00)
[2021-11-06 23:30] VITALS: RESP 18
[2021-11-07 06:10] LABS: Glucose,Whole Blood 122 mg/dL (75-99)
[2021-11-07] MEDS: INSULIN ASPART (NovoLOG) 100 UNIT/ML VIAL SQ SCH (06:47)
[2021-11-07] MEDS: glipiZIDE 10 MG TAB PO SCH (06:47)
[2021-11-07] MEDS: ASPIRIN 81 MG PO SCH (08:39)
[2021-11-07] MEDS: HEPARIN SODIUM,PORCINE/PF 5,000 UNIT/0.5 ML SYRINGE SQ SCH (08:39)
[2021-11-07] MEDS: CLOPIDOGREL 75 MG TAB PO SCH (08:39)
[2021-11-07] MEDS: MULTIVITAMINS, THERA 1 EACH TAB PO SCH (08:39)
--- NOTE | 2021-11-07 09:16 | P.DS ---
Providers Date of admission: 10/27/21 12:05 Expected date of discharge: 11/07/21 Attending physician: Ivory Yates Consults: 10/25/21 16:21 Consult Physician Routine Consulting Provider: Israel Mcguire Consult Reason/Comments: AMS Do you want consulting provider notified?: Yes 10/31/21 12:26 Consult Physician Routine Consulting Provider: Skyler Lei Consult Reason/Comments: JAI on 11/01/2021 Do you want consulting provider notified?: Already Contacted Primary care physician: Yandy Cedillo Hospital Course: Final diagnosis Acute/subacute CVA with right facial weakness. Possible embolic disease as per MRI. JAI reveals PFO small right to left shunt Altered mental status and metabolic encephalopathy. improved. Acute hypoxic respiratory failure requiring high flow oxygen. possibly secondary to aspiration pneumonia Acute urinary tract infection, present on admission Diabetes type 2 Hyperlipidemia History of TIA History of MRSA Gait dysfunction Diabetic retinopathy neuropathy Obstructive sleep apnea on CPAP DVT prophylaxis on heparin subcu Full code Discharge disposition Patient is being discharged in a stable condition with guarded prognosis to [facility] for continued PT/OT therapy. Patient will follow-up with Dr. Cedillo in the outpatient setting upon discharge. Patient is to follow- up with cardiology and also neurology in 1-2 weeks. Patient is continue with event monitor and cardiology follow-up with Dr. Owens in 1-2 weeks. Patient will continue on dual antiplatelet therapy of Plavix and aspirin for 21 days and after 21 days may discontinue aspirin and continue with Plavix indefinitely. Total time taken is greater than 35 minutes. Hospital course This is a 61-year-old female who was recently admitted with altered mental status and also being treated for a possible acute urinary tract infection and possible aspiration pneumonia. Multiple medical consultations following including cardiology and now neurology and had extensive workup for CVA as MRI of the brain showed a small foci of subacute ischemia considering embolic disease and underlying small chronic vessel ischemic changes. Patient underwent JAI which displayed a small right to left shunt PFO and will continue with an event monitor in the outpatient setting for 2 weeks and close outpatient follow- up with cardiology Dr. Owens and to discuss at that time treatment options and plans moving forward. Patient will also need neurology follow-up in the outpatient setting. Patient was evaluated by speech showing some aspiration and recommend maintaining strict aspiration precautions and dysphagia pured diet as discussed below. Recommend Accu-Cheks before meals and at bedtime and close monitoring of blood sugars and continue with sliding scale for now. Patient also requiring oxygen most likely secondary to aspiration pneumonia and currently maintained on 3 L via nasal cannula and recommend to continue with weaning FiO2 as tolerated. Currently no reports of chest pain, shortness of breath, or palpitations. Patient is afebrile. No reports of nausea or vomiting and patient is tolerating diet. Patient will be going to [facility] today. Guarded prognosis. On exam vital signs are stable. Cardio S1, S2 are muffled. Respiratory system shows diminished breath sounds at the bases with some scattered rhonchi noted. Abdomen is soft and obese, and nontender. Nervous system shows diffuse weakness. Please refer to medication reconciliation sheet for a list of medications. The impression and plan of care has been dictated by Cynthia Anaya, Nurse Practitioner as directed. Dr. Maximino MD I have performed a history and examination and MDM of this patient, discussed the same with the dictator, and agree with the dictator's assessment and plan as written ,documented as a scribe. Based on total visit time, I have performed more than 50% of the visit. Patient Condition at Discharge: Stable Plan - Discharge Summary Discharge Rx Participant: No New Discharge Prescriptions: New Lactulose [Cephulac] 30 gm PO TID PRN ml PRN Reason: Constipation Venlafaxine HCl ER [Effexor XR] 150 mg PO HS #2 cap INSULIN ASPART (NovoLOG) [NovoLOG (formulary)] 0 unit SQ ACHS each Clopidogrel [Plavix] 75 mg PO DAILY tab Heparin Sodium,Porcine [Heparin Sodium] 5,000 unit SQ Q12HR 30 Days #60 each Continue Aspirin EC [Ecotrin Low Dose] 81 mg PO DAILY glipiZIDE [Glucotrol] 10 mg PO AC-BID metFORMIN HCL ER [Glucophage XR] 500 mg PO BID Multivitamins, Thera [Multivitamin (formulary)] 1 tab PO DAILY Ondansetron [Zofran] 4 mg PO Q8HR PRN PRN Reason: Nausea Rosuvastatin Calcium [Crestor] 40 mg PO HS Changed HYDROcodone/APAP 5-325MG [[place] 5-325] 1 tab PO DAILY PRN #3 tab PRN Reason: Pain Discontinued Venlafaxine HCl [Venlafaxine HCl ER] 150 mg PO HS Insulin Glargine,Hum.rec.anlog [Lantus Solostar Pen] 0 - 30 unit SQ HS Discharge Medication List Aspirin EC [Ecotrin Low Dose] 81 mg PO DAILY 10/25/21 [History] Multivitamins, Thera [Multivitamin (formulary)] 1 tab PO DAILY 10/25/21 [History] Ondansetron [Zofran] 4 mg PO Q8HR PRN 10/25/21 [History] Rosuvastatin Calcium [Crestor] 40 mg PO HS 10/25/21 [History] glipiZIDE [Glucotrol] 10 mg PO AC-BID 10/25/21 [History] metFORMIN HCL ER [Glucophage XR] 500 mg PO BID 10/25/21 [History] Clopidogrel [Plavix] 75 mg PO DAILY tab 11/03/21 [Rx] HYDROcodone/APAP 5-325MG [[place] 5-325] 1 tab PO DAILY PRN #3 tab 11/03/21 [Rx] Heparin Sodium,Porcine [Heparin Sodium] 5,000 unit SQ Q12HR 30 Days #60 each 11/03/21 [Rx] INSULIN ASPART (NovoLOG) [NovoLOG (formulary)] 0 unit SQ ACHS each 11/03/21 [Rx] Lactulose [Cephulac] 30 gm PO TID PRN ml 11/03/21 [Rx] Venlafaxine HCl ER [Effexor XR] 150 mg PO HS #2 cap 11/03/21 [Rx] Follow up Appointment(s)/Referral(s): Jimmie Owens DO [STAFF PHYSICIAN] - 2 Weeks Yandy Cedillo III, MD [Primary Care Provider] - 1-2 days Israel Rivas MD [STAFF PHYSICIAN] - 1 Week Ambulatory/Diagnostic Orders: Complete Blood Count w/diff [LAB.AMB] Time Frame: 3 Days, Location: None Selected Activity/Diet/Wound Care/Special Instructions: Patient is going to ECF Activity as tolerated Follow up with primary care provider on discharge Follow-up with cardiology and continue with event monitor in 1-2 weeks Follow-up with neurology outpatient Per neurology patient is to continue with aspirin and Plavix daily and after 21 days may stop aspirin and continue with just Plavix 75 mg daily Recommend continue monitoring Accu-Cheks before meals and at bedtime NovoLog sliding scale 0-150 equals 0 units 151-200 equals 2 units 201-250 equals 4 units 251-300 equals 6 units 301-350 equals 8 units 351-400 equals 10 units Please notify provider if blood sugar is 400 or above Continue with aspiration precautions of head of the bed elevated 30-45 at all times, supervision with meals, Continue consistent carb dysphasia pured diet with one-to-one supervision, honey thickened liquids, aspiration precautions and no straws Recommend repeat labs of CBC and BMP in 2-3 days Continue oxygen supplementation and wean as tolerated and patient is currently maintaining on 3 L Please follow up with Cardiology, Dr. Owens in 1-2 weeks Discharge Disposition: TRANSFER TO SNF/ECF
[2021-11-07 10:11] VITALS: BP 134/77; PULSE 70; TEMP 98
== END 2021-11-07 11:15 | DRG 64 ==
LOC: EC 13:49 → 3SCARD 16:21 → OBSVTOIN 10-27 12:05
PROVIDERS: ADMIT Hospitalist; ATTEND Hospitalist
PROC: 5A0955A Assistance with Respiratory Ventilation, Greater than 96 Consecutive Hours, High Flow/Velocity Cannula (ICD-10-PCS; 2021-10-26)
PROC: B246ZZ4 Ultrasonography of Right and Left Heart, Transesophageal (ICD-10-PCS; principal; 2021-11-01 08:35)
DX: I63.442 Cerebral infarction due to embolism of left cerebellar artery (principal); G93.41 Metabolic encephalopathy; J96.01 Acute respiratory failure with hypoxia; J69.0 Pneumonitis due to inhalation of food and vomit; Q21.1 Atrial septal defect; N39.0 Urinary tract infection, site not specified; E11.319 Type 2 diabetes mellitus with unspecified diabetic retinopathy without macular edema; E11.40 Type 2 diabetes mellitus with diabetic neuropathy, unspecified; Z79.4 Long term (current) use of insulin; R29.810 Facial weakness; R26.2 Difficulty in walking, not elsewhere classified; R47.1 Dysarthria and anarthria; I34.0 Nonrheumatic mitral (valve) insufficiency; E78.5 Hyperlipidemia, unspecified; G47.33 Obstructive sleep apnea (adult) (pediatric); K59.00 Constipation, unspecified; E07.9 Disorder of thyroid, unspecified; E66.9 Obesity, unspecified; Z68.32 Body mass index [BMI] 32.0-32.9, adult; Z91.19 Patient's noncompliance with other medical treatment and regimen; Z79.82 Long term (current) use of aspirin; Z79.84 Long term (current) use of oral hypoglycemic drugs; Z79.899 Other long term (current) drug therapy; Z86.73 Personal history of transient ischemic attack (TIA), and cerebral infarction without residual deficits; Z87.891 Personal history of nicotine dependence; Z86.14 Personal history of Methicillin resistant Staphylococcus aureus infection; Z90.49 Acquired absence of other specified parts of digestive tract; Z87.19 Personal history of other diseases of the digestive system; Z90.710 Acquired absence of both cervix and uterus; Z87.39 Personal history of other diseases of the musculoskeletal system and connective tissue; Z87.42 Personal history of other diseases of the female genital tract; Z98.890 Other specified postprocedural states; Z71.3 Dietary counseling and surveillance; Z91.041 Radiographic dye allergy status; Z82.49 Family history of ischemic heart disease and other diseases of the circulatory system; Z83.3 Family history of diabetes mellitus
CPT/HCPCS: 36415; 70450; 70553; 71045; 71046; 74230; 80048; 80053; 80061; 81001; 83605; 83735; 84484; 85025; 85379; 85610; 85730; 87040; 87086; 93005; 93270; 93306; 93312; 93320; 93325; 93880; 94760; 95816; 96361; 96374; 99285

== ENCOUNTER → 2021-12-14 | Outpatient (CLI) | payer MEDICARE ==
[2021-12-15 00:07] LABS: African American GFR (CKD) 78.9 (60.0-200.0); Anion Gap 13.8 mmol/L (10.00-18.00); Carbon Dioxide 27.2 mmol/L (20.0-27.5); Potassium 4.5 mmol/L (3.5-5.5)
[2021-12-15 01:08] LABS: HCT 45.4 % (37.2-46.3); HGB 13.9 g/dL (12.0-15.0); MCH 27.7 pg (27.0-32.0); MCHC 30.6 g/dL (32.0-37.0); MCV 90.4 fL (80.0-97.0); Mean Platelet Volume 9.3 fL (9.5-12.2); NRBC Per 100 WBC 0 /100 WBCS (0.0-0.0); Platelet Count 322 X 10*3/uL (140-440); RBC 5.02 X 10*6/uL (4.10-5.20); RDW 14.8 % (11.5-14.5); WBC 7.17 X 10*3/uL (4.50-10.00)
== END | disposition home or self-care (01) ==
LOC: LABPAT 15:45
PROVIDERS: ATTEND Internal Medicine
DX: Z01.812 Encounter for preprocedural laboratory examination (principal); Q21.1 Atrial septal defect
CPT/HCPCS: 80051; 82565; 84520; 85027

== ENCOUNTER → 2022-02-28 | Outpatient (CLI) | payer MEDICARE ==
--- NOTE | 2022-02-28 11:35 | BD ---
EXAMINATION TYPE: Axial Bone Density DATE OF EXAM: 02/28/2022 COMPARISON: NONE CLINICAL HISTORY: 61 years year old Female. ICD-10 CODE: M85.80 DISORDER OF BONE DENSITY Height: 63 Weight: 180 PT UNABLE TO STAND TO BE MEASURED OR WEIGHT. FRAX RISK QUESTIONS: Alcohol (3 or more units per day): NO Family History (Parent hip fracture): NO Glucocorticoids (More than 3mos): NO History of Fracture in Adulthood: ANKLE Secondary Osteoporosis: 1. Type 1 Diabetes: NO 2. Hyperthyroidism: NO 3. Menopause before 45: YES 4. Malnutrition: NO 5. Chronic liver disease: NO Rheumatoid Arthritis: NO Current Tobacco Use: NO RISK FACTORS HISTORY OF: Hip Fracture (Right/Left): NO Spine Fracture: NO History of Wrist Fracture: NO Surgery to Spine/Hip(right/left)/Wrist (right/left): NO Family History of Osteoporosis: NO Active: NO Diet low in dairy products/other sources of calcium: NO Postmenopausal woman: YES If Premenopausal, do you have irregular periods: NO Lost more than 2 inches in height since high school: NO Frequent falls: YES Poor Health: YES Hyperparathyroidism: NO Adrenal Insufficiency: NO MEDICATIONS: Prednisone or other steroids: NO Thyroid Medications: SYNTHROID How Long: PAST 11 YEARS Osteoporosis Medications: NO Additional Medications: SYNTHROID, CHOLESTEROL MEDS, DEPRESSION, METFORMIN, MULTI VIT EXAM MEASUREMENTS: Bone mineral densitometry was performed using the [employer] System. Bone mineral density as measured about the Lumbar spine is: ----- L1-L4(G/cm2): 1.151 T Score Values are as follows: ----- L1: -0.5 ----- L2: -0.7 ----- L3: 0.3 ----- L4: -0.2 ----- L1-L4: -0.2 Bone mineral density has: INCREASED 5.8 % since study of: 02/07/2016 Bone mineral density about the R hip (g/cm2): 0.828 Bone mineral density about the L hip (g/cm2): 0.790 T Score values are as follows: -----R Neck: -1.5 -----L Neck: -1.8 -----R Total: -1.6 -----L Total: -1.3 Bone mineral density has: DECREASED 2.7 % since study of: 02/07/2016 FRAX%s: The graph provided illustrates a 15.3 %chance for a major osteoporotic fx and a 1.9% chance f or the hips probability for fx in 10 years time. IMPRESSION: Osteopenia (T Score between -2.5 and -1) remains present in both hips. There remains slightly increased risk of fracture and the patient may be considered for treatment. Re-Screen 2-5 years. NOTE: T-SCORE=SD OF THE YOUNG ADULT MEAN.
--- NOTE | 2022-03-01 08:16 | MM ---
Reason for Exam: Screening (asymptomatic). Last mammogram was performed 4 year(s) and 8 month(s) ago. Patient History: Menarche at age 10. First Full-Term at age 14. Left ovary removed at age 28. Right ovary removed at age 28. Hysterectomy at age 28. Postmenopausal. Patient has history of breast feeding. Excisional Biopsy on the Right side. Risk Values: Eliana 5 year model risk: 1.3%. NCI Lifetime model risk: 5.7%. Prior Study Comparison: 05/31/2014 Bilateral Screening Mammogram, [facility]. 04/20/2016 Bilateral Screening Mammogram, [facility]. 06/10/2017 Bilateral Screening Mammogram, [facility]. Tissue Density: There are scattered fibroglandular densities. Findings: Analyzed By CAD. There is no suspicious group of microcalcifications or new suspicious mass in either breast. Overall Assessment: Benign, BI-RAD 2 Management: Screening Mammogram of both breasts in 1 year. A clinical breast exam by your physician is recommended on an annual basis and results should be correlated with mammographic findings. Electronically signed and approved by: Leo Peraza M.D. Radiologis
== END | disposition home or self-care (01) ==
LOC: RADBDWWP 09:45
PROVIDERS: ATTEND Family Medicine
DX: Z12.31 Encounter for screening mammogram for malignant neoplasm of breast (principal); M85.89 Other specified disorders of bone density and structure, multiple sites; Z78.0 Asymptomatic menopausal state; Z98.890 Other specified postprocedural states
CPT/HCPCS: 77063; 77067; 77080

== ENCOUNTER → 2023-02-18 | Outpatient (CLI) | payer MEDICARE ==
[2023-02-18 11:14] LABS: Appearance,Urine Turbid (Clear); Bacteria,Urine Many /hpf; Bilirubin,Urine Negative (Negative); Blood,Urine Trace (Negative); Color,Urine Colorless; Glucose,Urine (UA) Negative (Negative); Ketones,Urine Negative (Negative); Leukocyte Esterase,Urine Moderate (Negative); Nitrite,Urine Negative (Negative); Protein,Urine Trace (Negative); RBC,Urine 5 /hpf (0-5); Specific Gravity,Urine 1.017 (1.001-1.035); Squamous Epithelial Cell,Urine 4 /hpf (0-4); WBC,Urine 66 /hpf (0-5)
[2023-02-18 15:25] LABS: Basophils # (A) 0.02 X 10*3/uL (0.00-0.10); Basophils % (A) 0.2 %; Eosinophils # (A) 0.45 X 10*3/uL (0.04-0.35); Eosinophils % (A) 3.6 %; HCT 48.4 % (37.2-46.3); HGB 15.7 d/dL (12.0-15.0); Lymphocytes # (A) 2.61 X 10*3/uL (0.90-5.00); Lymphocytes % (A) 20.7 %; MCH 28.1 pg (27.0-32.0); MCHC 32.4 d/dL (32.0-37.0); MCV 86.7 FL (80.0-97.0); Mean Platelet Volume 8.9 FL (9.5-12.2); Monocytes # (A) 0.91 X 10*3/uL (0.20-1.00); Monocytes % (A) 7.2 %; NRBC Per 100 WBC 0 X 10*3/uL (0.00-0.01); Neutrophils # (A) 8.58 X 10*3/uL (1.80-7.70); Neutrophils % (A) 68.1 %; Platelet Count 261 X 10*3/uL (140-440); RBC 5.58 X 10*6/uL (4.10-5.20); RDW 12.7 % (11.5-14.5)
[2023-02-18 15:45] LABS: ALT 20 U/L (8-44); AST 27 U/L (13-35); Albumin 4.2 d/dL (3.8-4.9); Albumin/Globulin Ratio 1.35 Ratio (1.60-3.17); Alkaline Phosphatase 128 U/L (41-126); BUN/Creat Ratio 27.38 Ratio (12.00-20.00); Blood Urea Nitrogen 21.9 mg/dL (9.0-27.0); Calcium 9.8 mg/dL (8.7-10.3); Carbon Dioxide 29.5 mmol/L (21.6-31.8); Chloride 102 mmol/L (96-109); Chol/HDL Ratio 2.81 Ratio; Globulin 3.1 d/dL (1.6-3.3); Glucose 99 mg/dL (70-110); LDL Cholesterol,Calculated 82.7 mg/dL (0.0-131.0); Potassium 4.5 mmol/L (3.5-5.5); Sodium 142 mmol/L (135-145); T4, Free (Free Thyroxine) 1.11 ng/dL (0.80-1.80); Total Bilirubin 0.3 mg/dL (0.3-1.2); Total Protein 7.3 d/dL (6.2-8.2); VLDL Calculation 19.72 mg/dL (5.00-40.00)
== END | disposition home or self-care (01) ==
LOC: LABWHC1 09:33
PROVIDERS: ATTEND Family Medicine
DX: E11.65 Type 2 diabetes mellitus with hyperglycemia (principal); E78.5 Hyperlipidemia, unspecified; R41.0 Disorientation, unspecified; Z79.899 Other long term (current) drug therapy
CPT/HCPCS: 36415; 80053; 80061; 81001; 82306; 82607; 83036; 84439; 84443; 85025; 87077; 87086; 87186

== ENCOUNTER → 2023-07-03 | Outpatient (CLI) | payer MEDICARE ==
--- NOTE | 2023-07-03 10:31 | XR ---
EXAMINATION TYPE: XR chest 2V DATE OF EXAM: 07/03/2023 COMPARISON: 01/18/2022 HISTORY: 62-year-old female R05.3, chronic cough TECHNIQUE: Frontal and lateral views FINDINGS: The cardiomediastinal silhouette, aorta, and pulmonary vasculature are within normal limits. PFO clos ure device. Lungs and pleural spaces are clear. IMPRESSION: No acute cardiopulmonary process.
[2023-07-03 16:06] LABS: Basophils # (A) 0.01 X 10*3/uL (0.00-0.10); Basophils % (A) 0.1 %; Eosinophils # (A) 0.35 X 10*3/uL (0.04-0.35); Eosinophils % (A) 4.3 %; HCT 46.7 % (37.2-46.3); HGB 14.7 g/dL (12.0-15.0); Lymphocytes # (A) 2.71 X 10*3/uL (0.90-5.00); Lymphocytes % (A) 33.6 %; MCHC 31.5 g/dL (32.0-37.0); Mean Platelet Volume 9.2 FL (9.5-12.2); Monocytes # (A) 0.61 X 10*3/uL (0.20-1.00); Monocytes % (A) 7.6 %; NRBC Per 100 WBC 0 X 10*3/uL (0.00-0.01); Neutrophils # (A) 4.37 X 10*3/uL (1.80-7.70); Neutrophils % (A) 54.3 %; Platelet Count 225 X 10*3/uL (140-440); RBC 5.25 X 10*6/uL (4.10-5.20); RDW 12.7 % (11.5-14.5); WBC 8.06 X 10*3/uL (4.50-10.00)
[2023-07-03 16:45] LABS: ALT 24 U/L (8-44); AST 25 U/L (13-35); Albumin 3.8 g/dL (3.8-4.9); Albumin/Globulin Ratio 1.27 Ratio (1.60-3.17); Alkaline Phosphatase 133 U/L (41-126); BUN/Creat Ratio 30.57 Ratio (12.00-20.00); Blood Urea Nitrogen 21.4 mg/dL (9.0-27.0); Calcium 9.5 mg/dL (8.7-10.3); Carbon Dioxide 31.5 mmol/L (21.6-31.8); Chloride 105 mmol/L (96-109); Glucose 151 mg/dL (70-110); Potassium 3.9 mmol/L (3.5-5.5); Sodium 147 mmol/L (135-145); Total Bilirubin 0.2 mg/dL (0.3-1.2); Total Protein 6.8 g/dL (6.2-8.2)
== END | disposition home or self-care (01) ==
LOC: LABWHC1 09:20
PROVIDERS: ATTEND Family Medicine
DX: I63.9 Cerebral infarction, unspecified (principal); E11.65 Type 2 diabetes mellitus with hyperglycemia; G30.9 Alzheimer's disease, unspecified; E55.9 Vitamin D deficiency, unspecified; R05.3 Chronic cough
CPT/HCPCS: 36415; 71046; 80053; 82306; 82465; 82607; 82746; 83036; 84443; 84478; 85025

== ENCOUNTER → 2023-10-02 | Outpatient (CLI) | payer MEDICARE | END | disposition home or self-care (01) | LOC: LABWHC1 10:54 | PROVIDERS: ATTEND Family Medicine | DX: E11.65 Type 2 diabetes mellitus with hyperglycemia (principal) | CPT/HCPCS: 36415; 83036 ==

== ENCOUNTER → 2024-05-16 | Outpatient (CLI) | payer MEDICARE | END | disposition home or self-care (01) | LOC: LABWHC1 10:50 | PROVIDERS: ATTEND Family Medicine | DX: E11.9 Type 2 diabetes mellitus without complications (principal) | CPT/HCPCS: 36415; 83036 ==

== ENCOUNTER → 2024-08-14 | Outpatient (CLI) | payer MEDICARE ==
[2024-08-14 14:50] LABS: Basophils # (A) 0.02 X 10*3/uL (0.00-0.10); Basophils % (A) 0.2 %; Eosinophils # (A) 0.43 X 10*3/uL (0.04-0.35); Eosinophils % (A) 4.8 %; HCT 43.9 % (37.2-46.3); HGB 13.8 g/dL (12.0-15.0); Lymphocytes # (A) 2.44 X 10*3/uL (0.90-5.00); Lymphocytes % (A) 27.5 %; MCH 27.9 pg (27.0-32.0); MCHC 31.4 g/dL (32.0-37.0); MCV 88.9 FL (80.0-97.0); Mean Platelet Volume 9.2 FL (9.5-12.2); Monocytes # (A) 0.79 X 10*3/uL (0.20-1.00); Monocytes % (A) 8.9 %; NRBC Per 100 WBC 0 X 10*3/uL (0.00-0.01); Neutrophils # (A) 5.18 X 10*3/uL (1.80-7.70); Neutrophils % (A) 58.5 %; Platelet Count 222 X 10*3/uL (140-440); RBC 4.94 X 10*6/uL (4.10-5.20); RDW 12.8 % (11.5-14.5); WBC 8.87 X 10*3/uL (4.50-10.00)
[2024-08-14 15:46] LABS: ALT 23 U/L (8-44); AST 29 U/L (13-35); Albumin 3.8 g/dL (3.8-4.9); Albumin/Globulin Ratio 1.31 Ratio (1.60-3.17); Alkaline Phosphatase 116 U/L (41-126); BUN/Creat Ratio 31.14 Ratio (12.00-20.00); Blood Urea Nitrogen 21.8 mg/dL (9.0-27.0); Calcium 9.5 mg/dL (8.7-10.3); Carbon Dioxide 29.1 mmol/L (21.6-31.8); Chloride 103 mmol/L (96-109); Globulin 2.9 g/dL (1.6-3.3); Glucose 104 mg/dL (70-110); Potassium 4.2 mmol/L (3.5-5.5); Sodium 143 mmol/L (135-145); Total Bilirubin 0.3 mg/dL (0.3-1.2); Total Protein 6.7 g/dL (6.2-8.2)
== END | disposition home or self-care (01) ==
LOC: LABWHC1 10:15
PROVIDERS: ATTEND Family Medicine
DX: E11.9 Type 2 diabetes mellitus without complications (principal); E55.9 Vitamin D deficiency, unspecified
CPT/HCPCS: 36415; 80053; 82043; 82306; 82570; 83036; 84443; 85025